=== PATIENT | female | born 1965 | race Caucasian/White ===

== ENCOUNTER 2023-10-23 20:35 | Inpatient (IN) | payer BC, SELFPAY ==
[2023-10-23] VITALS (7 sets, daily range): BP systolic 96–113; BP diastolic 74–82; BMI 25.4; BMI 24.5
[2023-10-23 19:16] LABS: % Basophils 0.2 % (0-2); % Lymphocytes 7.7 % (20.5-51.1); % Monocytes 5.5 % (1.7-9.3); % Neutrophils 83.6 % (42.2-75.2); Absolute Eosinophils 0.2 10^3/uL (0-0.7); Absolute Immature Granulocytes 0.1 10^3/uL (0-0.05); Absolute Lymphocytes 0.6 10^3/uL (1.2-3.4); Absolute Monocytes 0.4 10^3/uL (0.1-0.6); Absolute Neutrophils 6.7 10^3/uL (1.4-6.5); Hemoglobin 8.9 g/dL (12.0-16.0); Mean Corp Hgb Conc. 37.1 g/dL (33.0-37.0); Mean Corpuscular Hgb 32.7 pg (27.0-31.0); Mean Corpuscular Volume 88.2 fL (81.0-99.0); Mean Platelet Volume 9.4 fL (7.4-10.4); Nucleated Red Blood Cells % 0 %; Platelet Count 232 10^3/uL (130-400); Red Blood Cell Count 2.72 10^6/uL (4.20-5.40); Red Cell Dist. Width 12.1 % (11.5-14.5)
[2023-10-23 19:38] LABS: ALT (SGPT) 58 U/L (0-35); AST (SGOT) 24 U/L (14-36); Albumin 2.8 g/dl (3.5-5.0); Alkaline Phosphatase 355 U/L (38-126); Blood Urea Nitrogen 26 mg/dl (7-17); Calcium 8.5 mg/dl (8.4-10.2); Carbon Dioxide 22 mmol/L (22-30); Chloride 81 mmol/L (98-107); Estimated Creatinine Clearance 55 ml/min; Glucose 111 mg/dl (70-99); Potassium 2.9 mmol/L (3.5-5.1); Sodium 115 mmol/L (135-145); Total Bilirubin 0.8 mg/dl (0.2-1.3); Total Protein 5.1 g/dl (6.3-8.2); eGFR > 60.00
--- NOTE | 2023-10-23 19:46 | ED.GENMED ---
History of Present Illness
General
Chief Complaint: Weakness
Source: patient, records and previous hospital records
Exam Limitations: none
Time Seen by Provider: 10/23/23 19:07
Nursing documentation reviewed up to this point in time: agreed with
Travel History
Have you had any contact with someone who has COVID-19?: No
Do you have any symptoms of coronavirus? Fever > 100 degrees, chills, cough, shortness of breath, sore throat, loss of taste or smell, muscle aches, or headache?: No
History of Present Illness
History of Present Illness:
58-year-old female presents for evaluation of fatigue, admitted end of the year few weeks ago with a foot infection underwent incision and drainage been on IV antibiotics ID called her started Flagyl which made her ill with nausea she has been
having diarrhea lying in bed for the most part not eating or drinking much, unsure if she is gained or lost weight follows up with her family doctor and analog design engineer for wound care, has been on some Zofran for nausea 1-2 episodes of chills like hot
flashes but no documented fevers she has been getting IV antibiotics plus p.o. Flagyl, she believes that she has a foot infection due to an infected needle she gets injections of Botox in her armpits and her feet due to sweating
Past History
Past History
ED Past Medical History: Other (Fibromyalgia, IBS foot infection)
ED Past Surgical History: Gynecological, Tonsilectomy and Other (breast reduction)
Social History
Tobacco: Non-smoker
Alcohol: None
Drug: None
Personal:
Living: with family
Employment: Employed
Family History
Family History: Other
Review of Systems
Review of Systems
All Other Systems: Not applicable
Constitutional: Reports fatigue and chills; Denies fever
EENT: Reports no symptoms
Respiratory: Reports no symptoms
Cardiac: Denies chest pain or palpitations
ABD/GI: Reports nausea and diarrhea
: Reports no symptoms
Skin: Reports no symptoms
Neurological: Reports dizzy and weakness
Psychiatric: Reports no symptoms
Phy Exam
Physical Exam
Physical Exam:
Physical Exam
General: Chronically ill female
Neck: Lips are dry
Heart: Regular
Lungs: no acute respiratory distress.
Abdomen: Nontender
Neuro: alert and oriented. no focal neurological deficits
Skin: no rash
Psychiatric: Flat affect cooperative
Extremities: No edema surgical wound appears clean
Course
Orders/Labs/Results
Orders:
Orders
10/23/23 19:01
CMP [Comprehensive Metabolic Panel] Urgent
Complete Blood Count/With Diff Urgent
Cortisol, Random Urgent
Comment: ADD ON
Magnesium Urgent
Serum Osmolality Urgent
Comment: ADD ON
TSH Urgent
Comment: ADD ON
10/23/23 19:42
0.9% Sodium Chloride 1000 ml [Nss] 1,000 ml IV BOLUS
Potassium Chloride [KCl] 40 meq PO NOW STA
10/23/23 19:44
Add On- LAB Urgent
Tests Added?: Serum osmolality urine osmolality TSH cortisol
Add On- LAB Urgent
Tests Added?: magnesium
Osmolality, Random Urine Urgent
10/23/23 19:46
ECG [Electrocardiogram (*1)] Urgent
Reason for Study: Fatigue / Weakness
EKG- Treatment ONCE
10/23/23 23:00
Basic Metabolic Panel Urgent
Abnormal Lab Results
10/23/23
19:01
RBC 2.72 L 10^6/uL
(4.20-5.40)
Hgb 8.9 L g/dL
(12.0-16.0)
Hct 24.0 L %
(37.0-47.0)
MCH 32.7 H pg
(27.0-31.0)
MCHC 37.1 H g/dL
(33.0-37.0)
Abs Immat Gran (auto) 0.1 H 10^3/uL
(0-0.05)
Absolute Neuts (auto) 6.7 H 10^3/uL
(1.4-6.5)
Absolute Lymphs (auto) 0.6 L 10^3/uL
(1.2-3.4)
Immature Gran % 1.0 H %
(0-0.5)
Neutrophils % 83.6 H %
(42.2-75.2)
Lymphocytes % 7.7 L %
(20.5-51.1)
Sodium 115 L* mmol/L
(135-145)
Potassium 2.9 L mmol/L
(3.5-5.1)
Chloride 81 L mmol/L
(98-107)
BUN 26 H mg/dl
(7-17)
Glucose 111 H mg/dl
(70-99)
ALT 58 H U/L
(0-35)
Alkaline Phosphatase 355 H U/L
(38-126)
Total Protein 5.1 L g/dl
(6.3-8.2)
Albumin 2.8 L g/dl
(3.5-5.0)
10/23/23 19:01
Vital Signs
Initial and Last Documented VS:
Initial Vital Signs
Temp Pulse Resp BP Pulse Ox
97.8 F 91 18 103/74 98
10/23/23 18:56 10/23/23 18:56 10/23/23 18:56 10/23/23 18:56 10/23/23 18:56
Last Documented Vital Signs
Temp Pulse Resp BP Pulse Ox
97.8 F 91 18 103/74 98
10/23/23 18:56 10/23/23 18:56 10/23/23 18:56 10/23/23 18:56 10/23/23 18:56
MDM/Problems Addressed
Differential Diagnosis Includes:
Anemia dehydration occult infection electrolyte abnormality
MDM/Problems Addressed:
Fatigue
Chronic conditions affecting care:
Fibromyalgia
Acute Exacerbation and/or Progression of Chronic Illness:
Fibromyalgia
*Pulse Oximetry
Patient hypoxic: no
*EKG
Interpreted by ED Provider?: Yes
Interpretation: abnormal
Comparison EKG: no comparison EKG present
Heart Rate: 78
Rate: normal
Rhythm: sinus
Ischemia: non-specific ST changes
*Manager Call Center Interpretation
Rate: normal
Interpretation: normal
Heart Rate: 80
Rhythm: sinus
*Critical Care Note
Total Time (30-74mins, 75-104mins- exclusive of procedures): 30
Data Reviewed
Review of Other/Old Records Reveals: Labs, Records and Discharge Summary
Source: patient
Prescriptions/Medications Considered But Not Given:
Stress dose steroids
Further Testing Considered But Not Given:
Foot x-ray
Update Note
Update Note:
Patient with multiple vague complaints she looks dehydrated here BP is soft, she is hyponatremic significantly hypokalemic we will check magnesium start saline hydration reviewed with hospitalist and paste mixer will be admitted serial BMPs will be
obtained
ED Attending Note
-
Portions of this chart may have been created with voice recognition software.� Occasional wrong word or��sound alike� substitutions may have occurred due to the inherent limitations of voice recognition software.
Discharge Plan
Departure
Patient Disposition: Admit
Date of Disposition: 10/23/23
Time of Disposition: 19:54
Admit to: Telemetry
Presentation/result/management discussed w/ accepting MD/DO: Hospitalist
Patient with high blood pressure during this ER visit?: No
Condition: Fair
Covid-19: Not Applicable
Discharge Problem:
Hypokalemia, Fibromyalgia, Dehydration
Prescriptions:
No Action
ibuprofen 800 mg Tablet
800 mg PO Q6H PRN (Reason: pain)
ascorbic acid (vitamin C) [Vitamin C] 500 mg Tablet
500 mg PO DAILY
zolpidem [Ambien] 5 mg Tablet
5 mg PO HS PRN (Reason: insomnia)
escitalopram oxalate [Lexapro] 5 mg Tablet
5 mg PO DAILY
fexofenadine-pseudoephedrine [Elizabeth-D 24 Hour] 180-240 mg Tablet Extended Release 24 Hr
0.5 tab PO DAILY
Vitamin B12 Chew
1 tab PO DAILY
polyethylene glycol 3350 [HealthyLax] 17 gram Powder In Packet
17 g PO DAILY Qty: 30 0RF
ceftriaxone 2 gram Recon Soln
2,000 mg IV Q24H Qty: 0 0RF
Rx Instructions:
End Date 11/01/23
oxycodone 5 mg Tablet
5 mg PO Q6HPRN PRN (Reason: moderate pain) Qty: 10 0RF
Interventions
Interventions:
*Risk Screen - Suicide Last Done: 10/23/23 18:56
*General Assessment Last Done: 10/23/23 18:56
*Neglect/Abuse Screening Last Done: 10/23/23 18:56
ED- Fall Risk Assessment Last Done: 10/23/23 19:12
ED- Cardiac Assessment Last Done: 10/23/23 19:12
ED- Neurological Assessment Last Done: 10/23/23 19:12
ED- Pulmonary Assessment Last Done: 10/23/23 19:12
[2023-10-23] MEDS: NSS 1000 IV (19:50)
[2023-10-23] MEDS: KCL 40 MEQ PO (19:51)
[2023-10-23 20:04] LABS: Magnesium 2.1 mg/dl (1.6-2.3)
--- NOTE | 2023-10-23 20:07 | HPS.HSE ---
Addendum entered and electronically signed by Derick Ku MD 10/24/23 05:58:
0357 H : Na is at 119 close to goal
Addendum entered and electronically signed by Derick Ku MD 10/23/23 22:30:
Severe hyponatremia - suspect hypovolemia due to intolerence to POs� due to nausea , poor appetite and diarrhea�
Ordered NS 1000c bolus at ER but stop after receiving about 350 cc suggsted by Renal to avoid rapid correction
Then repeat Na@ 9 pm is 116 .
BP is Ok hence Renal suggests 3 % saline at 30/H.
f/U Na q4h.
Gaol Na by morning is not more than 120.
Original Note:
Family Physician
-
Family Physician:
Chief Complaint
-
evaluation of fatigue
History of Present Illness
58F HX suspected KAM in the past in setting of acute infective process seen at ER for evaluation of fatigue
She was admitted in sep for foot infection underwent incision and drainage been on IV antibiotics.
ID called in for Flagyl which made her ill with nausea she has been having diarrhea.
Recently lying in bed for the most part not eating or drinking much,
She follows up with her family doctor and materials and processes manager for wound care
She has been on some Zofran for nausea 1-2 episodes of chills like hot flashes but no documented fevers
Medical History
Past Medical History
Past Medical History: Reports Other (Fibromyalgia Anxiety / Depression Hypertension (not on medications))
Past Surgical History: Reports Other (T&A D&C Breast Reduction)
Social History
Tobacco: Former Smoker
Alcohol: None
Personal:
Family History
Family History: Not pertinent
Allergies / Home Medications
Allergies reflects when Allergies were last updated in [employer].
Home Medications with original date entered in [employer]
Allergy/Medication List:
Allergies
Allergy/AdvReac Type Severity Reaction Status Date / Time
metronidazole AdvReac Severe Severe Verified 10/23/23 18:55
nausea
Home Medications
Vitamin B12 Chew 1 tab PO DAILY Supplement 09/17/23
ascorbic acid (vitamin C) 500 mg tablet (Vitamin C) 500 mg PO DAILY Supplement 09/17/23
escitalopram oxalate 5 mg tablet (Lexapro) 5 mg PO DAILY Depression 09/17/23
fexofenadine-pseudoephedrine ER 180 mg-240 mg tablet,ext.release 24 hr (Elizabeth-D 24 Hour) 0.5 tab PO DAILY Allergies 09/17/23
ibuprofen 800 mg tablet 800 mg PO Q6H PRN pain 09/17/23
zolpidem 5 mg tablet (Ambien) 5 mg PO HS PRN insomnia 09/17/23
ceftriaxone 2 gram solution for injection 2,000 mg IV Q24H #0 ea 09/27/23
oxycodone 5 mg tablet 5 mg PO Q6HPRN PRN moderate pain #10 tabs 09/27/23
polyethylene glycol 3350 17 gram oral powder packet (HealthyLax) 17 g PO DAILY #30 ea 09/27/23
Review of Systems
-
Constitutional: Reports See HPI and Fatigue
EENT: Reports No Symptoms
Respiratory: Reports No Symptoms
Cardiac: Reports No Symptoms
Abdomen/GI: Reports No Symptoms
: Reports No Symptoms
Musculoskeletal: Reports No Symptoms
Skin: Reports No Symptoms
Neurological: Reports No Symptoms
Endocrine: Reports No Symptoms
Hematologic/Lymphatic: Reports No Symptoms
Psych: Reports No Symptoms
Physical Exam
Vital Signs
Vital Signs
Temp Pulse Resp BP Pulse Ox
97.8 F 91 18 103/74 98
10/23/23 18:56 10/23/23 18:56 10/23/23 18:56 10/23/23 18:56 10/23/23 18:56
Physical Exam
General: Other (see below )
Laboratory Results
-
10/23/23 19:01
Laboratory Results
Total Bilirubin 0.8 mg/dl (0.2-1.3) 10/23/23 19:
AST 24 U/L (14-36) 10/23/23 19:
ALT 58 U/L (0-35) H 10/23/23 19:01
Alkaline Phosphatase 355 U/L (38-126) H 10/23/23 19:01
Data Reviewed
-
Lab Data: Labs Reviewed by me
Old Records: Reviewed
Impression/Plan
-
Reviewed VS: afebrile HR 90 BP 103/74
PE
General: Chronically ill
HEENT: dry lips and dry OM
Respiratory: Clear; No Wheezes, Rales or Rhonchi
Cardiac: S1/S2 and Regular Rhythm; No Murmur
GI: Soft, Non Tender, Non Distended and Normal Bowel Sounds
Musculoskeletal: R foot edematous with increased warmth and tenderness.
Erythema extending proximally into the lower leg. Area of fluctuance, tenderness and purulent discharge at the base of the R 1st MT.)
Neuro: AO x 3
Data
Hgb 8.9
Na 115 - last Na 137 on 09/25/23 but HX Na around low 130s before
BG 111
K 2.9
Cl 81
CO22
BUN 26
nl Cr
nl eGFR
ALT 58 AKP 355
Albumin 2.8
last admission to 09/20/23 - 09/27/23
DC Dx: Right foot cellulitis and Osteomyelitis
ASSESSMENT & PLAN
Severe hyponatremia - suspect hypovolemia due to intolerence to POs due to nausea , poor appetite and dirrhea
NS 1000c bolus at ER
- To repeat Na at 9pm 4hrs and q6hrs to avoid rapid correction
- IVF depends upon rate of Na correction
- Check TFTs, urine lytes, etc.
- pending UrNa and UrOsm
- pending Cortisol and TSH
- Nephro consulted - suggested stop IVF and f/u Na at 9 pm
Severe hypokalemia s/p PO KCL 40 x1 at ER
Diarrheal illness DDX: RENETTA vs C Diff
- stop using Laxatives since DC on 09/27/23
- stool for C Diff, stool Cx
- stop PO PPI
- stop Miralax
- IVF depends upon rate of Na correction
S/P I & D Right foot cellulitis and Osteomyelitis
Has Rt UEx PICC line
- currently on IV CFTZ till end of October
- OP f/u with ID
Fibromyalgia HX
- Stable
- Held Lexapro/SSRI for now due to questionable ellent od SIADH
DVT Prophylaxis: Lovenox
Full code
IMU
[2023-10-23 20:20] LABS: Osmolality Serum 243 mOsm/kg (275-300)
[2023-10-23 20:35] LABS: Cortisol, Random 11.7 ug/dl; TSH 1.24 uIU/ml (0.47-4.68)
[2023-10-23] MEDS: ROCEPHIN 1000 MG IV (21:06)
[2023-10-23 21:39] LABS: Blood Urea Nitrogen 25 mg/dl (7-17); Calcium 8.5 mg/dl (8.4-10.2); Carbon Dioxide 22 mmol/L (22-30); Chloride 83 mmol/L (98-107); Estimated Creatinine Clearance 55 ml/min; Glucose 101 mg/dl (70-99); Potassium 3.1 mmol/L (3.5-5.1); Sodium 116 mmol/L (135-145); eGFR > 60.00
[2023-10-23] MEDS: TYLENOL 650 MG PO (22:49)
--- NOTE | 2023-10-23 23:03 | PTCARENOTE ---
Received pt from ED RN. Pt is AAOx3, LE weakness. NSR/sinus tach on the monitor. On RA O2 sat 96%, lungs clear. Uses the BP. R foot wound from previous I&D, foam applied. 3% infusing @ 30ml/hr through right PICC. CHG bath provided. Pt is laying
comfortable in bed with call ochoa in reach.
[2023-10-23] MEDS: SODIUM CHLORIDE 3% 500 IV (23:06)
[2023-10-23] MEDS: TUMS 2 TABLET PO (23:33)
[2023-10-23] MEDS: AMBIEN 5 MG PO (23:48)
[2023-10-24] VITALS (14 sets, daily range): BP systolic 84–111; BP diastolic 60–89; BMI 24.6
[2023-10-24 00:31] LABS: Blood Urea Nitrogen 25 mg/dl (7-17); Calcium 8.4 mg/dl (8.4-10.2); Carbon Dioxide 21 mmol/L (22-30); Chloride 85 mmol/L (98-107); Estimated Creatinine Clearance 62 ml/min; Glucose 128 mg/dl (70-99); Potassium 3.2 mmol/L (3.5-5.1); Sodium 117 mmol/L (135-145); eGFR > 60.00
[2023-10-24] MEDS: KCL 40 MEQ PO (00:50)
[2023-10-24] MEDS: TYLENOL 650 MG PO ×4 (03:54→21:20)
[2023-10-24 04:49] LABS: Blood Urea Nitrogen 21 mg/dl (7-17); Calcium 8.2 mg/dl (8.4-10.2); Carbon Dioxide 22 mmol/L (22-30); Chloride 91 mmol/L (98-107); Estimated Creatinine Clearance 62 ml/min; Glucose 101 mg/dl (70-99); Potassium 3.8 mmol/L (3.5-5.1); Sodium 119 mmol/L (135-145); eGFR > 60.00
[2023-10-24] MEDS: FLORASTOR 250 MG PO ×2 (08:10→20:06)
--- NOTE | 2023-10-24 08:22 | W.PN.HOSP.TC ---
Today's Communication/Plan
-
see A/P
Assessment / Plan
Assessment / Plan
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 She was admitted Sep 2023 for foot infection, underwent incision and drainage and had been on IV antibiotic Ceftriaxone.
ID called in for Flagyl which made her ill with nausea and she has been having diarrhea.
She follows with her family doctor and environmental technology professor for wound care.
A/P:
# Severe hyponatremia - suspect multifactorial due to hypovolemia from poor PO intake and diarrhea, and SIADH component
s/p NSS 1L bolus in ER
cont 3% NSS per renal
Follow Sodium level Q4H for close monitoring
TSH 1.24, random cortisol level 11.7
Renal on board
# Severe hypokalemia
resolved after repletion
# Diarrheal illness, ddx include ABx related vs C Diff
She had been off Laxatives since 09/27/23
Check stool for C Diff, norovirus, stool Cx
stop PO PPI
stop Miralax
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
Was recommended by ID to cont IV antibiotic Ceftriaxone through�11/01/23.
# Fibromyalgia HX, Stable
Hold Lexapro/SSRI�due to current severe hyponatremia
Add lidocaine patch for shoulder pain
DVT Prophylaxis:� Lovenox
Full code
DW RN
severe hyponatremia is life threatening
Anticipated Discharge: > 48 hours
Subjective/Interval History
-
Date of Service: October 24, 2023
Objective Data
-
Labs:
Laboratory Results
10/23/23 10/23/23 10/24/23
21:06 23:51 03:57
Sodium 116 L* 117 L* 119 L*
Potassium 3.1 L 3.2 L 3.8
Chloride 83 L 85 L 91 L
Carbon Dioxide 22 21 L 22
BUN 25 H 25 H 21 H
Creatinine 0.9 0.8 0.8
Glucose 101 H 128 H 101 H
Calcium 8.5 8.4 8.2 L
10/24/23 10/24/23 10/24/23
04:00 08:14 12:00
Sodium Cancelled Pending Pending
Potassium Cancelled Pending Pending
Chloride Cancelled Pending Pending
Carbon Dioxide Cancelled Pending Pending
BUN Cancelled Pending Pending
Creatinine Cancelled Pending Pending
Glucose Cancelled Pending Pending
Calcium Cancelled Pending Pending
Vital Signs:
Vital Signs
Temp Pulse Resp BP Pulse Ox
36.6 C 107 26 91/62 88
10/24/23 03:52 10/24/23 06:00 10/24/23 06:00 10/24/23 06:00 10/24/23 06:00
I&O
10/23/23 10/24/23 10/25/23
06:59 06:59 06:59
Intake Total 620 / 620
Balance 620 / 620
Review of Systems
-
Constitutional: Reports Fatigue
Physical Exam
-
General: Well Developed, Well Nourished, No Apparent Distress and Comfortable
Respiratory: Clear to Auscultation and Non Labored Respirations; Negative Wheezes or Accessory Resp Muscle Use
Cardiac: Regular Rhythm and S1/S2
GI: Soft and Nontender
Musculoskeletal: No Edema
Skin: Warm, Dry and Other (R food with dressing); Negative Rash
Psych: Calm and Intact Judgement/Insight
Data Reviewed
-
Labs: Labs Reviewed by me
[2023-10-24 08:42] LABS: Blood Urea Nitrogen 20 mg/dl (7-17); Calcium 8.7 mg/dl (8.4-10.2); Carbon Dioxide 23 mmol/L (22-30); Chloride 93 mmol/L (98-107); Estimated Creatinine Clearance 62 ml/min; Glucose 115 mg/dl (70-99); Potassium 3.7 mmol/L (3.5-5.1); Sodium 122 mmol/L (135-145); eGFR > 60.00
[2023-10-24 10:33] LABS: COVID-19 Antigen Negative (Negative)
[2023-10-24 10:35] LABS: Osmolality Urine 132 mOsm/kg (300-900)
[2023-10-24] MEDS: LIDOCAINE 4% PATCH 1 PATCH TOPICAL (10:38)
[2023-10-24 10:50] LABS: Urine Sodium < 5 mmol/L (30-90)
--- NOTE | 2023-10-24 10:58 | CON.MD ---
Consultation - Medical
-
IMp:
Severe hyponatremia
Severe hypokalemia
hypotension
Diarrheal illness,
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
Fibromyalgia HX
HTN not on meds
GERD
Anxiety
Plan:
Recent h/o OM of right foot s/p I&D on abx IV
A/w diarrhea, found to have severe hypontaremia
likely hypovolemic, initial U osmo not done this am is low at 132 and u na low
on 3% saline with appropriate correction so far
can stop 3% saline and use hypotonic fluids if needed for rapid correction
with low U osmo concern of rapid correction
TSH and cortisol were ok
goal of correction 6-8meq/day, frequent sodium checks
k repleted, FR 40 ounces/day
agree with holding SSRI
abx per primary
CXR shows pulm congestion, check BNP
clinically she has no hypervolemia
monitor BPs, will add prn midodrine
[id number]
[2023-10-24 12:40] LABS: Blood Urea Nitrogen 18 mg/dl (7-17); Calcium 8.4 mg/dl (8.4-10.2); Carbon Dioxide 23 mmol/L (22-30); Chloride 97 mmol/L (98-107); Estimated Creatinine Clearance 62 ml/min; Glucose 102 mg/dl (70-99); Sodium 123 mmol/L (135-145); eGFR > 60.00
[2023-10-24 12:49] LABS: NT-proBNP 21600 pg/ml
[2023-10-24] MEDS: ROCEPHIN 2000 MG IV (16:06)
[2023-10-24] MEDS: STERILE WATER FOR INJECTION 20 ML IV (16:06)
--- NOTE | 2023-10-24 16:28 | CM ---
Patient with Hx Right foot cellulitis and sesamoid osteomyelitis s/p I/D of abscess on home IV ceftriaxone, with Dx hyponatremia, diarrhea, SIADH.
Met with patient with aunt & uncle visiting in room.
The patient resides alone in a 2 story house.
The patient was Independent for ADLs/ambulation and working.
In the past week she has been fatigued and unable to do much at home.
She states that she was instructed by her waiter/waitress buffet to wear an ortho shoe and be non wt bearing on right foot until her sutures were removed, which recently occurred.
Patient states she is currently on service with [facility] for IV Abx ordered until the end of Oct. Nurse from [facility] sees her weekly for PICC line and lab draws.
Patient did not have VN for right foot wound care. She was seeing the waiter/waitress buffet once/week.
DME - RW, knee scooter, elevated toilet seat
No prior VN
PCP - Josselyn Bailey
Pharmacy - [facility]
Phone call to [facility]; left message notifying her that patient who is on service with them is here.
Message to Dr Smith; patient says she is having trouble walking. May be helpful to have PT Eval.
Plan follow patient's mobility and any wound care needs.
Plan notify [facility] if patient goes home with continuation of IV Abx.
[2023-10-24 16:37] LABS: Blood Urea Nitrogen 18 mg/dl (7-17); Calcium 8.4 mg/dl (8.4-10.2); Carbon Dioxide 23 mmol/L (22-30); Chloride 97 mmol/L (98-107); Estimated Creatinine Clearance 62 ml/min; Glucose 135 mg/dl (70-99); Potassium 3.8 mmol/L (3.5-5.1); Sodium 124 mmol/L (135-145); eGFR > 60.00
--- NOTE | 2023-10-24 16:52 | W.PN.UPDATE ---
Update Note
Progress Note Update
BNP is significantly elevated , ordered echo
may benefit from cards eval
Avoid IVF at this time
prn lasix
d/w primary
[2023-10-24] MEDS: LOVENOX 40 MG SC (17:32)
--- NOTE | 2023-10-24 18:26 | PTCARENOTE ---
Patient c/o of neck and back pain today. Medicated with Tylenol and Lidocaine patches throughout the day, see NOV. BP soft but remained SBP>90. Right foot dressing redressed. Pt did get up and walk to bathroom once today using RW. Assessment, care
and VS as charted.
[2023-10-24] MEDS: TUMS 2 TABLET PO (20:06)
[2023-10-24] MEDS: ULTRAM 25 MG PO (20:06)
[2023-10-24 20:25] LABS: Blood Urea Nitrogen 20 mg/dl (7-17); Calcium 8.9 mg/dl (8.4-10.2); Carbon Dioxide 20 mmol/L (22-30); Chloride 94 mmol/L (98-107); Estimated Creatinine Clearance 62 ml/min; Glucose 112 mg/dl (70-99); Sodium 125 mmol/L (135-145); eGFR > 60.00
--- NOTE | 2023-10-24 22:48 | PTCARENOTE ---
Pt placed on 2L NC, pulse ox dropped to 87%, pt states she feels SOB. O2 sat 95% with 2L.
[2023-10-24] MEDS: AMBIEN 5 MG PO (23:44)
[2023-10-25] VITALS (13 sets, daily range): BP systolic 91–110; BP diastolic 65–83; PULSE 112–114; O2SAT 97–98; BMI 24.5
[2023-10-25 00:40] LABS: Blood Urea Nitrogen 17 mg/dl (7-17); Calcium 8.5 mg/dl (8.4-10.2); Carbon Dioxide 22 mmol/L (22-30); Chloride 95 mmol/L (98-107); Estimated Creatinine Clearance 62 ml/min; Glucose 122 mg/dl (70-99); Potassium 3.7 mmol/L (3.5-5.1); Sodium 120 mmol/L (135-145); eGFR > 60.00
[2023-10-25] MEDS: TYLENOL 650 MG PO ×2 (01:34→09:14)
[2023-10-25 04:00] LABS: Hematocrit 21.8 % (37.0-47.0); Hemoglobin 7.8 g/dL (12.0-16.0); Mean Corp Hgb Conc. 35.8 g/dL (33.0-37.0); Mean Corpuscular Hgb 32.1 pg (27.0-31.0); Mean Corpuscular Volume 89.7 fL (81.0-99.0); Platelet Count 241 10^3/uL (130-400); Red Blood Cell Count 2.43 10^6/uL (4.20-5.40); Red Cell Dist. Width 12.6 % (11.5-14.5); White Blood Cell Count 8.9 10^3/uL (4.8-10.8)
[2023-10-25 04:31] LABS: Blood Urea Nitrogen 16 mg/dl (7-17); Calcium 8.4 mg/dl (8.4-10.2); Carbon Dioxide 23 mmol/L (22-30); Chloride 97 mmol/L (98-107); Estimated Creatinine Clearance 62 ml/min; Glucose 105 mg/dl (70-99); Potassium 3.7 mmol/L (3.5-5.1); Sodium 123 mmol/L (135-145); eGFR > 60.00
--- NOTE | 2023-10-25 08:31 | W.PN.HOSP.TC ---
Today's Communication/Plan
-
see A/P
Assessment / Plan
Assessment / Plan
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 She was admitted Sep 2023 for foot infection, underwent incision and drainage and had been on IV antibiotic Ceftriaxone.
ID called in for Flagyl which made her ill with nausea and she has been having diarrhea.
She follows with her family doctor and transmission supervisor for wound care.
A/P:
# Severe hyponatremia - suspect multifactorial due to hypovolemia from poor PO intake and diarrhea, and SIADH component
s/p NSS 1L bolus in ER
s/p 3% NSS per renal
sodium level improved from 115 on admission to 123
Cont to follow Sodium level closely
TSH 1.24, random cortisol level 11.7
Renal on board
# Severe hypokalemia
resolved after repletion
# Diarrheal illness, likely ABx related
She had been off Laxatives since 09/27/23
C Diff and norovirus negative, follow the rest of stool Cx
stop PO PPI, stop Miralax
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
Was recommended by ID to cont IV antibiotic Ceftriaxone through�11/01/23.
PT OT Eval
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
start gabapentin 100 mg HS
# Elevated BNP , possible acute CHF
# Acute hypoxic respiratory insufficiency
Placed on 2.5 L NC, pt NOT on home O2
CXR with Mild acute interstitial and alveolar cardiogenic pulmonary edema. Minimal bilateral pleural effusions.
Follow echo
IV Lasix 20 x1
Card CS
# Cough, intermittent
COVID neg
Check Flu and RSV
Tessalon PRN for cough
# Fibromyalgia HX, Stable
Hold Lexapro/SSRI�due to current severe hyponatremia
Added lidocaine patch for shoulder and lower back
# Insomnia
Cont ALGORITHM DEVELOPER Ambien PRN
DVT Prophylaxis:�Lovenox SQ
Full code
DW RN
Anticipated Discharge: > 48 hours
Subjective/Interval History
-
Date of Service: October 25, 2023
Objective Data
-
Labs:
Laboratory Results
10/24/23 10/24/23 10/25/23
19:57 21:50 00:04
WBC
Hgb
Hct
Plt Count
Sodium Cancelled 120 L
Potassium 4.0 3.7
Chloride 95 L
Carbon Dioxide 22
BUN 17
Creatinine 0.8
Glucose 122 H
Calcium 8.5
10/25/23
03:45
WBC 8.9
Hgb 7.8 L
Hct 21.8 L
Plt Count 241
Sodium 123 L
Potassium 3.7
Chloride 97 L
Carbon Dioxide 23
BUN 16
Creatinine 0.8
Glucose 105 H
Calcium 8.4
Vital Signs:
Vital Signs
Temp Pulse Resp BP Pulse Ox
36.7 C 108 36 96/65 95
10/25/23 05:04 10/25/23 06:02 10/25/23 06:02 10/25/23 06:02 10/25/23 04:04
I&O
10/24/23 10/25/23 10/26/23
06:59 06:59 06:59
Intake Total 620 / 620 1830 / 1830
Output Total 150 / 150
Balance 620 / 620 1680 / 1680
Review of Systems
-
Constitutional: Reports Fatigue
Respiratory: Reports Cough
Physical Exam
-
General: Well Developed, Well Nourished and Comfortable
HEENT: Oxygen (2.5L NC)
Respiratory: Clear to Auscultation and Non Labored Respirations; Negative Wheezes or Accessory Resp Muscle Use
Cardiac: Regular Rhythm and S1/S2
GI: Soft and Nontender
Musculoskeletal: No Edema
Skin: Warm, Dry and Other (R foot with dressing); Negative Rash
Neuro: Awake
Psych: Calm and Intact Judgement/Insight
Data Reviewed
-
Diagnostic Radiology: Image personally visualized and interpreted and Report Reviewed by me
Labs: Labs Reviewed by me
[2023-10-25] MEDS: TESSALON PERLES 200 MG PO ×2 (09:13→23:58)
[2023-10-25] MEDS: ProAmatine 5 MG PO (09:14)
[2023-10-25] MEDS: FLORASTOR 250 MG PO ×2 (09:14→20:17)
[2023-10-25] MEDS: LIDOCAINE 4% PATCH TOPICAL ×2 (09:14→09:15)
--- NOTE | 2023-10-25 09:46 | PTCARENOTE ---
Patient ordered for Lasix IV x1 this morning. Spoke with and advised low BP, systolic in 90s. She stated to give PRN Midodrine (despite parameters), wait for response then give Lasix. Also made aware hgb was 7.8 this morning and pt has been
tachycardic, advised to monitor for now, no new orders. Pt c/o of burning/numbness to her toe/foot post surgery. Order for Gabapentin to start tonight. Assessment, care and VS as charted.
--- NOTE | 2023-10-25 10:30 | CON.CAR ---
Addendum entered and electronically signed by Yung Tate MD 10/25/23 16:10:
I saw and examined the patient.
The INSPECTOR [employer] or PA's note was reviewed and I agree with the note.
Comment: General: Well developed, well nourished in NAD.
Neck: Supple, no JVD, HJR, carotids +2 B/L, no bruits bilaterally.
Heart: Non displaced PMI, RRR, no murmurs, No S3, S4, no rubs.
Lungs: Clear to auscultation bilaterally, no wheeze, rhonchi, rubs bilaterally,
normal expiratory phase.
Abdomen: Normal bowel sounds, soft, non-tender, non-distended.
Extremities: No clubbing, cyanosis or edema bilaterally.
Neuro: Grossly nonfocal, awake, alert and oriented x3.
Ave has a history of hyperhidrosis. She was admitted with hyponatremia and fatigue. Cardiology was consulted for new findings echocardiogram with ejection fraction of 35 to 40% with moderate to severe MR
Etiology of cardiomyopathy is unclear but with left bundle branch block need to exclude CAD. Discussed cardiac catheterization with patient who seems agreeable. Hemoglobin is dropped to 7.8 and an anemia will need to be worked up before
catheterization. Start baby aspirin when anemia stable
Original Note:
Consultation
Consultation Request
Date/Time Consultation Requested: 10/25/23 at 0838
Date/Time Consultation Performed: 10/25/23 at 1100
Requesting Provider: Dr. Smith
Performing Provider: Dr. Tate
Reason for Consultation: Possible acute HF, new CM
Medical History
-
History of Present Illness:
Patient came to [facility] on Monday with fatigue and was admitted with hyponatremia, cardiology is now consulted for an abnormal echo. Patient was admitted to 09/20/23 until 09/27/23 with right foot osteomyelitis thought to be a complication of Botox
injections she receives for hyperhidrosis. Patient had an I&D and was treated with antibiotics and then discharged to home on antibiotics. Patient returned to [facility] 10/23/23 with fatigue and was found to be hyponatremic at 115 initially. Patient was
seen by nephrology and received hypertonic saline. Sodium only improved to 123 and [place] [address] concerning for HF. Patient then had an echo ordered as outlined above. No h/o CM or CHF. No h/o chest pain. Patient
was unaware of LBBB and by her last ECG in 2020 she had NSR without BBB. No FH of CM or SCD. Patient reports no improvement in her cough and SOB since admission despite improvement in serum sodium levels.
PMH:
Recent admission for right foot osteomyelitis 09/20/23 until 09/27/23
FMR
Past Medical History
Past Medical History: Other (in HPI)
Past Surgical History: Gynecological (breast reduction, D&C), Orthopedic (right foot surgery for osteo) and Tonsilectomy
Social History
Tobacco: Non-Smoker
Alcohol: None
Drug: None
Living: Alone
Family History
Family History: Other (No FH CM or SCD)
Allergies / Home Medications
Allergy/AdvReac Type Severity Reaction Status Date / Time
metronidazole Allergy Severe Verified 10/23/23 20:52
nausea
Medication Instructions Recorded Confirmed Type
Vitamin B12 Chew 1 tab PO DAILY Supplement 09/17/23 10/23/23 History
ascorbic acid (vitamin C) 500 mg 500 mg PO DAILY Supplement 09/17/23 10/23/23 History
tablet (Vitamin C)
escitalopram oxalate 5 mg tablet 5 mg PO DAILY Depression 09/17/23 10/23/23 History
(Lexapro)
fexofenadine-pseudoephedrine ER 0.5 tab PO DAILY Allergies 09/17/23 10/23/23 History
180 mg-240 mg tablet,ext.release
24 hr (Elizabeth-D 24 Hour)
ibuprofen 800 mg tablet 800 mg PO Q6H PRN pain 09/17/23 10/23/23 History
zolpidem 5 mg tablet (Ambien) 5 mg PO HS PRN insomnia 09/17/23 10/23/23 History
ceftriaxone 2 gram solution for 2,000 mg IV DAILY@1600 Infection 10/23/23 10/23/23 History
injection
omeprazole 20 mg capsule,delayed 20 mg PO DAILY GERD 10/23/23 10/23/23 History
release
ondansetron HCl 4 mg tablet 4 mg PO Q6H PRN nausea/vomiting 10/23/23 10/23/23 History
Review of Systems
-
History Source: Patient and Family (talked to patient's friend, Jacy, for 17 min as well)
All other systems: Negative unless noted
Physical Exam
Vital Signs
Temp Pulse Resp BP Pulse Ox
98.3 F 109 20 104/74 99
10/25/23 07:46 10/25/23 10:00 10/25/23 10:00 10/25/23 10:00 10/25/23 10:00
GEN: NAD. AAOx3
HEENT: EOMI, MMM
LUNGS: Wearing oxygen at 2 L NC. CTA B/L without wheeze
CV: Reg, S1/S2, 2/6 syst LSB
ABD: soft, BS+, NT, ND
EXT: No clubbing, cyanosis, lesions or edema B/L
NEURO: Gross non-focal
SKIN: Warm, dry and pink. No rash
Lab Results
10/25/23 03:45
Wdm-V-Cxhqpgcwhaz Pept 01728 pg/ml 10/24/23 12:13
Impression / Plan
-
PC: Dr. Bailey
Cardiology: None prior to admission
Impression:
Admitted with diarrhea and severe hyponatremia 10/23/23
Hyponatremia
Diarrhea
LBBB
Anemia
Acute HFrEF
Newly diagnosed CM EF 35-40% by echo 10/24/23
Mod to sev MR by echo 10/24/23
Recent admission for right foot osteomyelitis 09/20/23 until 09/27/23
FMR
Echo 10/24/23: EF 35-40%, global hypokinesis, mod to sev MR
Plan:
-Patient came to [facility] on Monday with fatigue and was admitted with hyponatremia, cardiology is now consulted for an abnormal echo. Patient was admitted to 09/20/23 until 09/27/23 with right foot osteomyelitis thought to be a complication of Botox
injections she receives for hyperhidrosis. Patient had an I&D and was treated with antibiotics and then discharged to home on antibiotics. Patient returned to [facility] 10/23/23 with fatigue and was found to be hyponatremic at 115 initially. Patient was
seen by nephrology and received hypertonic saline. Sodium only improved to 123 and [place] [address] [place] for HF. Patient then had an echo ordered as outlined above. No h/o CM or CHF. No h/o chest pain. Patient
was unaware of LBBB and by her last ECG in 2020 she had NSR without BBB. No FH of CM or SCD. Patient reports no improvement in her cough and SOB since admission despite improvement in serum sodium levels.
-Talked with patient in room for 16 minutes about echo, possible etiologies and recommendation for cath. Asked patient to call her daughter so that she could be present on speakerphone, but patient's daughter lives in [place] and so instead she
asked that I call her friend, Kamilahzita Gusman, which I did. Talked with patient's friend for 17 min and reviewed what I had talked with patient about. Reiterated recommendation for cardiac cath and friend seems to support this recommendation as
well. Overall patient seems agreeable to cardiac cath this admission.
-Hgb was 8.9 on admission and is down to 7.8 today. No reports of melena. Ordering heme test of stools and repeat H&H in AM. Will need to be sure that H&H is stable prior to cath in case patient receives PCI and needs DAPT.
-New LBBB on ECG this admission compared to last ECG in 2020. Reviewed possible causes of LBBB. Also reviewed possible eventual BANK GUARD.
-New CM EF 35% on echo. Patient's BP is 104/74 and HR 111. Will try adding Coreg 3.125 mg BID as a first step. Pending BP can try adding lisinopril.
-Pending outcome of cath, if patient has PCI then recheck echo in 40 days if nonobstructive CAD then recheck echo in 90 days.
-Patient with cough and hypoxia. Some increase in urination after Lasix 20 mg IV x1 this AM, but no symptomatic improvement in cough or SOB. Will try another dose of Lasix 40 mg IV this afternoon and then Lasix 40 mg daily. Patient was not taking
Lasix prior to admission.
-Reviewed moderate to severe MR on echo. Continue with attempts at diuresis and reassess MR when euvolemic.
[2023-10-25] MEDS: NSS 1000 IV (11:09)
[2023-10-25] MEDS: LASIX 20 MG IV (11:09)
--- NOTE | 2023-10-25 12:48 | W.PN.NEPH.PH ---
Today's Communication / Plan
-
- hyponatremia improved
- plan for hypertonic saline once Na numbers back from 1PM draw
Assessment/Plan
-
Assessment:
Severe hyponatremia (roxanne 115)
Severe hypokalemia
hypotension
Diarrheal illness
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
Fibromyalgia HX
HTN not on meds
GERD
Anxiety
Plan:
Recent h/o OM of right foot s/p I&D on abx IV (CTX until 11/01)
arrived with diarrhea, found to have severe hyponatremia with urine studies consistent with hypovolemic hyponatremia.
TSH and cortisol were ok
goal of correction 6-8meq/day, frequent sodium checks
k repleted, FR 40 ounces/day
agree with holding SSRI
echo with 35% EF, BNP 21K, on 2L O2 so concern for new diagnosis of heart failure. given lasix IV 20 today.
will trial hypertonic again but VERY gentle for a short period of time. goal Na 129-131 by tomorrow AM. Na and Uosm check at 1PM, will decide on rate afterwards
midodrine on board PRN
-
-
Date of Service: October 25, 2023
CC / HPI / ROS
-
Chief Complaint:
hyponatremia
History of Present Illness:
hyponatremia
OM
diarrheal illness
new diagnosis of CHF
fibromyalgia
Review of Systems:
denies swelling
on 2L NC (new)
Labs
-
Labs:
WBC 8.9 10^3/uL (4.8-10.8) 10/25/23 03:45
RBC 2.43 10^6/uL (4.20-5.40) L 10/25/23 03:45
Hgb 7.8 g/dL (12.0-16.0) L 10/25/23 03:45
Hct 21.8 % (37.0-47.0) L 10/25/23 03:45
Plt Count 241 10^3/uL (130-400) 10/25/23 03:45
eGFR > 60.00 10/25/23 03:45
Dam-H-Udshqbnxtse Pept 75632 pg/ml 10/24/23 12:13
Albumin 2.8 g/dl (3.5-5.0) L 10/23/23 19:01
Physical Exam
-
Vital Signs:
Vital Signs
Temp Pulse Resp BP Pulse Ox
97.5 F 111 20 104/74 99
10/25/23 11:32 10/25/23 11:09 10/25/23 10:00 10/25/23 11:09 10/25/23 10:00
Cardiovascular:: Regular rate and rhythm
Respiratory:: Bilateral: CTA
Lung Excursion:: Normal
Abdomen:: Nontender and Soft
Bowel Sounds:: Normal
Extremity Edema:: None: Bilateral:
Marquez Catheter: No
[2023-10-25 13:48] LABS: Blood Urea Nitrogen 15 mg/dl (7-17); Calcium 8.4 mg/dl (8.4-10.2); Carbon Dioxide 23 mmol/L (22-30); Chloride 94 mmol/L (98-107); Estimated Creatinine Clearance 55 ml/min; Glucose 144 mg/dl (70-99); Potassium 3.7 mmol/L (3.5-5.1); Sodium 121 mmol/L (135-145); eGFR > 60.00
[2023-10-25 14:52] LABS: Osmolality Urine 262 mOsm/kg (300-900)
--- NOTE | 2023-10-25 16:56 | CM ---
Patient with Hx Right foot cellulitis and sesamoid osteomyelitis s/p I/D of abscess on home IV ceftriaxone, with Dx hyponatremia, diarrhea, SIADH. Right foot dressing per nurse. IV Abx. PT & OT recommend HH.
Met with patient and offered VN; she called one of her friends who owns a HH agency and is considering a few options however wants to discuss with some other friends who were in healthcare. Patient requests to have a STATION AGENT as well as SN/PT/OT.
Plan follow up with patient about VN preference and make referral.
[2023-10-25] MEDS: ULTRAM 25 MG PO (17:11)
[2023-10-25] MEDS: STERILE WATER FOR INJECTION 20 ML IV (17:13)
[2023-10-25] MEDS: LASIX 40 MG IV (17:13)
[2023-10-25] MEDS: LIDOCAINE 4% PATCH 1 PATCH TOPICAL ×2 (17:13)
[2023-10-25] MEDS: ROCEPHIN 2000 MG IV (17:13)
[2023-10-25] MEDS: LOVENOX 40 MG SC (17:14)
[2023-10-25] MEDS: SODIUM CHLORIDE 3% 250 IV (18:32)
[2023-10-25] MEDS: COREG 3.125 MG PO (20:18)
[2023-10-25] MEDS: NEURONTIN 100 MG PO (20:57)
[2023-10-25] MEDS: AMBIEN 5 MG PO (20:57)
[2023-10-26] VITALS (16 sets, daily range): BP systolic 81–111; BP diastolic 51–72; PULSE 95; O2SAT 97; BMI 24.3
[2023-10-26 00:35] LABS: Blood Urea Nitrogen 18 mg/dl (7-17); Calcium 8.3 mg/dl (8.4-10.2); Carbon Dioxide 23 mmol/L (22-30); Chloride 95 mmol/L (98-107); Estimated Creatinine Clearance 62 ml/min; Glucose 108 mg/dl (70-99); Potassium 3.8 mmol/L (3.5-5.1); Sodium 121 mmol/L (135-145); eGFR > 60.00
--- NOTE | 2023-10-26 04:42 | PTCARENOTE ---
assumed care of patient- pt able to make needs known. 3% NaCl infusing at 30ml/hr per protocol- BMP drawn at 0000 per order- Na still 121- 3% increased to 35ml/hr per protocol. pt anxious- 2L NC on per patient request. pt with occasional dry cough-
PRN tessalon pearles given- pt was also given ice chips with frequent complaints of cough. pt able to sleep on and off without issues. care ongoing.
[2023-10-26 05:30] LABS: Hematocrit 22.4 % (37.0-47.0); Mean Corp Hgb Conc. 35.7 g/dL (33.0-37.0); Mean Corpuscular Hgb 32.7 pg (27.0-31.0); Mean Corpuscular Volume 91.4 fL (81.0-99.0); Mean Platelet Volume 9.2 fL (7.4-10.4); Platelet Count 267 10^3/uL (130-400); Red Blood Cell Count 2.45 10^6/uL (4.20-5.40); Red Cell Dist. Width 12.9 % (11.5-14.5)
[2023-10-26 06:08] LABS: Blood Urea Nitrogen 19 mg/dl (7-17); Calcium 8.4 mg/dl (8.4-10.2); Carbon Dioxide 22 mmol/L (22-30); Chloride 96 mmol/L (98-107); Estimated Creatinine Clearance 55 ml/min; Glucose 106 mg/dl (70-99); Magnesium 1.8 mg/dl (1.6-2.3); Potassium 3.8 mmol/L (3.5-5.1); Sodium 123 mmol/L (135-145); eGFR > 60.00
--- NOTE | 2023-10-26 08:22 | W.PN.HOSP.TC ---
Today's Communication/Plan
-
see A/P
Assessment / Plan
Assessment / Plan
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 She was admitted Sep 2023 for foot infection, underwent incision and drainage and had been on IV antibiotic Ceftriaxone.
ID called in for Flagyl which made her ill with nausea and she has been having diarrhea.
She follows with her family doctor and resume writer for wound care.
A/P:
# Severe hyponatremia - suspect multifactorial due to hypovolemia from poor PO intake and diarrhea, and SIADH component
s/p NSS 1L bolus in ER
3% NSS per renal
sodium level improved from 115 on admission to 123
Cont to follow Sodium level closely
TSH 1.24, random cortisol level 11.7
Renal on board
# Severe hypokalemia
resolved after repletion
# New acute systolic CHF
# Acute hypoxic respiratory insufficiency
Placed on 2L NC, wean as tolerated, pt NOT on home O2
CXR with Mild acute interstitial and alveolar cardiogenic pulmonary edema. Minimal bilateral pleural effusions.
BNP 80663
Echo: EF 35-40%, Global hypokinesis. Moderate to severe mitral regurgitation.�
IV Lasix 40 x1
Card on board, planning cardiac cath
# Diarrheal illness, likely ABx related
She had been off Laxatives since 09/27/23
C Diff and norovirus negative, follow the rest of stool Cx
stopped PO PPI, stopped Miralax
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
Was recommended by ID to cont IV antibiotic Ceftriaxone through�11/01/23.
PT OT Eval
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
started gabapentin 100 mg HS
# Cough, intermittent; likely related to acute CHF
COVID/ Flu/RSV negative
Tessalon PRN for cough
# Fibromyalgia HX, Stable
Hold Lexapro/SSRI�due to current severe hyponatremia
Added lidocaine patch for shoulder and lower back
# Insomnia
Cont MODEL MAKER Ambien PRN
DVT Prophylaxis:�Lovenox SQ
Full code
DW RN
DW Card team
Anticipated Discharge: > 48 hours
Subjective/Interval History
-
Date of Service: October 26, 2023
Objective Data
-
Labs:
Laboratory Results
10/26/23 10/26/23
00:10 05:18
WBC 10.0
Hgb 8.0 L
Hct 22.4 L
Plt Count 267
Sodium 121 L 123 L
Potassium 3.8 3.8
Chloride 95 L 96 L
Carbon Dioxide 23 22
BUN 18 H 19 H
Creatinine 0.8 0.9
Glucose 108 H 106 H
Calcium 8.3 L 8.4
Vital Signs:
Vital Signs
Temp Pulse Resp BP Pulse Ox
36.9 C 105 30 85/54 96
10/26/23 07:17 10/26/23 06:02 10/26/23 06:02 10/26/23 06:02 10/26/23 06:02
I&O
10/25/23 10/26/23 10/27/23
06:59 06:59 06:59
Intake Total 1830 / 1830 680 / 680
Output Total 150 / 150 200 / 200
Balance 1680 / 1680 480 / 480
Review of Systems
-
Constitutional: Reports Fatigue
Respiratory: Reports Cough (intermittent)
Physical Exam
-
General: Well Developed, Well Nourished and Comfortable
HEENT: Oxygen (2L NC)
Respiratory: Clear to Auscultation and Non Labored Respirations; Negative Wheezes or Accessory Resp Muscle Use
Cardiac: Regular Rhythm and S1/S2
GI: Soft and Nontender
Musculoskeletal: No Edema
Skin: Warm, Dry and Other (R foot with dressing); Negative Rash
Neuro: Awake
Psych: Calm and Intact Judgement/Insight
Data Reviewed
-
Diagnostic Radiology: Image personally visualized and interpreted and Report Reviewed by me
Labs: Labs Reviewed by me
[2023-10-26] MEDS: TESSALON PERLES 200 MG PO ×2 (09:31→22:47)
[2023-10-26] MEDS: TYLENOL 650 MG PO ×3 (09:32→22:39)
[2023-10-26] MEDS: COREG PO (09:33)
[2023-10-26] MEDS: FLORASTOR 250 MG PO ×2 (09:33→20:28)
[2023-10-26] MEDS: LIDOCAINE 4% PATCH 1 PATCH TOPICAL ×2 (09:34)
[2023-10-26 11:20] LABS: Osmolality Urine 316 mOsm/kg (300-900)
[2023-10-26 11:40] LABS: Urine Sodium 12 mmol/L (30-90)
--- NOTE | 2023-10-26 15:09 | CM ---
Patient with Hx Right foot cellulitis and sesamoid osteomyelitis s/p I/D of abscess on home IV ceftriaxone, with Dx hyponatremia, CHF, Diarrheal illness, right foot neuropathic pain. O2 2L. Right foot dressing per nurse. Receiving IV ceftriaxone.
PT & OT recommend HH.
As per prior CM notes: Patient states she is currently on service with [facility] home infusion for IV Abx ordered until the end of Oct. Nurse from [facility] sees her weekly for PICC line and lab draws.
Met with patient who has decided she would like [facility] for nurse/PT/OT.
Referral to [facility] Liaison.
Plan home with [facility].
--- NOTE | 2023-10-26 16:31 | W.PN.NEPH.PH ---
Today's Communication / Plan
-
- restart hypertonics
- lasix 20mg with hypertonics
- Uosm at 8PM and with AM labs
Assessment/Plan
-
Assessment:
Severe hyponatremia (roxanne 115)
Severe hypokalemia
hypotension
Diarrheal illness
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
Fibromyalgia HX
HTN not on meds
GERD
Anxiety
Plan:
Recent h/o OM of right foot s/p I&D on abx IV (CTX until 11/01)
arrived with diarrhea, found to have severe hyponatremia with urine studies consistent with hypovolemic hyponatremia.
TSH and cortisol were ok
goal of correction 6-8meq/day, frequent sodium checks. Na at 123 today
k repleted, FR 40 ounces/day
agree with holding SSRI
echo with 35% EF, BNP 21K, on 2L O2 so concern for new diagnosis of heart failure. was given lasix IV 20 and 40 yesterday. will give another lasix 20 IV today
will trial hypertonic again. goal Na 129-131 by tomorrow AM. Na and Uosm check at 8PM, will decide on rate afterwards
midodrine on board PRN
-
-
Date of Service: October 26, 2023
CC / HPI / ROS
-
Chief Complaint:
hyponatremia
History of Present Illness:
hyponatremia
OM
diarrheal illness
new diagnosis of CHF
fibromyalgia
Review of Systems:
denies swelling
on 2L NC (new)
Labs
-
Labs:
WBC 10.0 10^3/uL (4.8-10.8) 10/26/23 05:18
RBC 2.45 10^6/uL (4.20-5.40) L 10/26/23 05:18
Hgb 8.0 g/dL (12.0-16.0) L 10/26/23 05:18
Hct 22.4 % (37.0-47.0) L 10/26/23 05:18
Plt Count 267 10^3/uL (130-400) 10/26/23 05:18
Sodium 123 mmol/L (135-145) L 10/26/23 05:18
Potassium 3.8 mmol/L (3.5-5.1) 10/26/23 05:18
Chloride 96 mmol/L (98-107) L 10/26/23 05:18
Carbon Dioxide 22 mmol/L (22-30) 10/26/23 05:18
BUN 19 mg/dl (7-17) H 10/26/23 05:18
Creatinine 0.9 mg/dL (0.6-1.0) 10/26/23 05:18
eGFR > 60.00 10/26/23 05:18
Glucose 106 mg/dl (70-99) H 10/26/23 05:18
Calcium 8.4 mg/dl (8.4-10.2) 10/26/23 05:18
Aat-U-Dtuwdnsprcw Pept 18263 pg/ml 10/24/23 12:13
Albumin 2.8 g/dl (3.5-5.0) L 10/23/23 19:01
Physical Exam
-
Vital Signs:
Vital Signs
Temp Pulse Resp BP Pulse Ox
97.4 F 102 11 104/68 97
10/26/23 16:03 10/26/23 16:00 10/26/23 16:00 10/26/23 16:00 10/26/23 16:00
Cardiovascular:: Regular rate and rhythm
Respiratory:: Bilateral: CTA
Lung Excursion:: Normal
Abdomen:: Nontender and Soft
Bowel Sounds:: Normal
Extremity Edema:: None: Bilateral:
Marquez Catheter: No
[2023-10-26] MEDS: LOVENOX 40 MG SC (17:23)
[2023-10-26] MEDS: STERILE WATER FOR INJECTION 20 ML IV (17:24)
[2023-10-26] MEDS: ROCEPHIN 2000 MG IV (17:24)
[2023-10-26] MEDS: SODIUM CHLORIDE 3% 250 IV (17:24)
[2023-10-26] MEDS: LASIX 20 MG IV (17:24)
[2023-10-26] MEDS: ULTRAM 25 MG PO (18:10)
[2023-10-26] MEDS: COREG 3.125 MG PO (20:28)
[2023-10-26 21:28] LABS: Osmolality Urine 247 mOsm/kg (300-900)
[2023-10-26] MEDS: NEURONTIN 100 MG PO (21:28)
[2023-10-26 21:37] LABS: Blood Urea Nitrogen 22 mg/dl (7-17); Calcium 8.8 mg/dl (8.4-10.2); Carbon Dioxide 24 mmol/L (22-30); Chloride 90 mmol/L (98-107); Estimated Creatinine Clearance 49 ml/min; Glucose 116 mg/dl (70-99); Potassium 3.3 mmol/L (3.5-5.1); Sodium 123 mmol/L (135-145); eGFR > 60.00
[2023-10-26] MEDS: KCL 40 MEQ PO (22:39)
[2023-10-26] MEDS: AMBIEN 5 MG PO (22:39)
--- NOTE | 2023-10-26 22:54 | PTCARENOTE ---
BMP resulted potassium 3.3 and Sodium 123, Urine osmolarity was 247. Results TT to Judy RODRÍGUEZ. Orders given for PO Potassium and given. Received pt awake and alert and oriented. Heart monitor shows Sinus tachy with BBB, Heart monitor
interprets it as VT at times. Removed and replaced Heart monitor stickers and this helped the monitor to read the rhythm properly. Pt was getting upset over all the alarms coming from her monitor. The pulse Ox monitor was reading a low pleth and
not picking up her POx well. Reapplied a new sensor with some improvement. Gave pt Tessalon Perles for a cough, and Tylenol for upper R back pain and also asked for Ambien for sleep. Gave pt a back rub also with some help in calming pt and helping
her to relax. Given some emotional support with active listening and pt is now calm and more restful. Will continue to monitor patient.
[2023-10-27] VITALS (20 sets, daily range): BP systolic 88–118; BP diastolic 55–89; BMI 25.4
[2023-10-27] MEDS: SODIUM CHLORIDE 3% 250 IV (02:13)
--- NOTE | 2023-10-27 04:17 | PTCARENOTE ---
Pt was up OOB to the bathroom due to urgency with her bowels. Wears attends, was incontinent of loose brown BM. She is able to ambulate with a walker and her surgical boot on her R foot. Dressing changed. She has a dry non productive cough.
[2023-10-27 05:26] LABS: Hematocrit 21.7 % (37.0-47.0); Hemoglobin 7.6 g/dL (12.0-16.0); Mean Corpuscular Hgb 32.6 pg (27.0-31.0); Mean Corpuscular Volume 93.1 fL (81.0-99.0); Mean Platelet Volume 8.9 fL (7.4-10.4); Platelet Count 285 10^3/uL (130-400); Red Blood Cell Count 2.33 10^6/uL (4.20-5.40); Red Cell Dist. Width 13.1 % (11.5-14.5); White Blood Cell Count 13.1 10^3/uL (4.8-10.8)
[2023-10-27 05:57] LABS: Blood Urea Nitrogen 21 mg/dl (7-17); Calcium 8.9 mg/dl (8.4-10.2); Carbon Dioxide 21 mmol/L (22-30); Chloride 96 mmol/L (98-107); Estimated Creatinine Clearance 55 ml/min; Glucose 108 mg/dl (70-99); Magnesium 1.8 mg/dl (1.6-2.3); Sodium 127 mmol/L (135-145); eGFR > 60.00
[2023-10-27] MEDS: FLORASTOR 250 MG PO ×2 (08:16→19:51)
[2023-10-27] MEDS: COREG PO (08:17)
[2023-10-27] MEDS: LIDOCAINE 4% PATCH TOPICAL ×2 (08:41)
--- NOTE | 2023-10-27 09:34 | CON.GI ---
Consultation
-
Date/Time Consultation Requested: 10/27/23 0745
Date/Time Consultation Performed: 10/27/23 0915
Requesting Provider: Dr. Smith
Performing Provider: Dr. Bowen / Perri Arango PA-C
Reason for Consultation: anemia
Medical History
Chief Complaint / HPI
Chief Complaint: anemia
History of Present Illness:
This is a 58 year old female with a past medical history of fibromyalgia, GERD and colon polyps who recently admitted at for osteomyelitis of the right foot discharged home on 09/27/23 with PICC line on IV antibiotics (Rocephin) to continue until
the end of October. Flagyl was added to the regimen and she started with nausea, vomiting and diarrhea shortly after starting. She was experiencing pain in her foot so was taking significant amounts of NSAIDs as well (Ibuprofen 800mg three times
daily). The diarrhea is described as loose, watery, brown stool without any melena or hematochezia. She feels nauseous and c/o bilious vomiting (no hematemesis or coffee grounds emesis). She denies fever, chills, abdominal pain or chest pain. She
stopped the Flagyl on 10/18/23 as recommended by ID, but her symptoms persisted. She felt extreme fatigue/weakness, so returned to on 10/23/23, where she was found to be hyponatremic (Na 115) and mildly hypokalemic (K 3.3) and Hgb of 8.9 with
normal MCV. She was evaluated by Nephrology; echocardiogram was ordered and showed new findings of moderate to severe MR with EF 35-40% with Cardiology consultation, recommending cardiac catheterization to rule out underlying CAD. GI has been
consulted for anemia.
At discharge on 09/27/23, most recent Hgb was 9.4. Today, 10/27/23, Hgb is 7.6. Patient denies any scooter bleeding; no black/bloody stools or hematemesis as noted previously. She takes omeprazole 20mg daily for reflux, which she states works well to
control her GERD. She does admit to the recent heavy NSAID use, and admits to drinking 8 alcoholic drinks/week (beer or wine). She had an endoscopy in [address] Bateman which showed a Schatzki ring (which was dilated with balloon dilation to 20mm)
and an irregular Z line; esophageal biopsies showed chronic esophagitis, negative for Stover's esophagus. She had colonoscopy in 2018 which showed diverticulosis and a small adenoma in the ascending colon. Diarrhea has improved since coming to the
hospital and stool studies were negative (C diff, salmonella, shigella, aeromonas, plesiomonas, campylobacter, shiga toxin, norovirus all negative). She does complain of dysphagia and hoarseness, which she states has been a chronic issue for her.
The dysphagia did not improve after her last EGD with dilation in 2021. She states she saw ENT for this as well, was scoped, reporteldy negative. She is a non-smoker. There is no family history of GI malignancies, IBD or celiac disease.
Past Medical History
Past Medical History: Fibromyalgia, GERD and Other (osteomyelitis R foot, anxiety, depression, HTN (not on medication), colon polyps)
Past Surgical History: Other (breast reduction)
Social History
Tobacco: Non-Smoker
Alcohol: Other ('social' - 8 drinks/week)
Drug: None
Personal:
Employment: Employed
Family History
Family History: Other (no family history of GI malignancies, IBD or celiac disease)
Allergies / Home Medications
Allergy/AdvReac Type Severity Reaction Status Date / Time
metronidazole Allergy Severe Verified 10/23/23 20:52
nausea
Medication Instructions Recorded
Vitamin B12 Chew 1 tab PO DAILY Supplement 09/17/23
ascorbic acid (vitamin C) 500 mg 500 mg PO DAILY Supplement 09/17/23
tablet (Vitamin C)
escitalopram oxalate 5 mg tablet 5 mg PO DAILY Depression 09/17/23
(Lexapro)
fexofenadine-pseudoephedrine ER 0.5 tab PO DAILY Allergies 09/17/23
180 mg-240 mg tablet,ext.release
24 hr (Elizabeth-D 24 Hour)
ibuprofen 800 mg tablet 800 mg PO Q6H PRN pain 09/17/23
zolpidem 5 mg tablet (Ambien) 5 mg PO HS PRN insomnia 09/17/23
ceftriaxone 2 gram solution for 2,000 mg IV DAILY@1600 Infection 10/23/23
injection
omeprazole 20 mg capsule,delayed 20 mg PO DAILY GERD 10/23/23
release
ondansetron HCl 4 mg tablet 4 mg PO Q6H PRN nausea/vomiting 10/23/23
Review of Systems
-
History Source: Patient
All other systems: A 12 pt ROS was Negative except as stated above in HPI
Vital Signs
Temp Pulse Resp BP Pulse Ox
98.3 F 114 20 100/55 97
10/27/23 03:35 10/27/23 08:14 10/27/23 08:14 10/27/23 08:14 10/27/23 08:14
Physical Exam
Exam
General: Well Developed, Well Nourished and No Apparent Distress
Respiratory: Clear
Cardiac: Regular Rhythm
GI: Soft, Non Tender, Non Distended and Normal Bowel Sounds
Rectal: Other
Musculoskeletal: No Edema
Skin: Warm and Dry
Neuro: AO x 3
Psych: Calm
Stool heme testing by nursing revealed heme negative brown stool
Results
WBC 13.1 10^3/uL (4.8-10.8) H 10/27/23 05:16
Hgb 7.6 g/dL (12.0-16.0) L 10/27/23 05:16
Hct 21.7 % (37.0-47.0) L 10/27/23 05:16
MCV 93.1 fL (81.0-99.0) 10/27/23 05:16
Plt Count 285 10^3/uL (130-400) 10/27/23 05:16
Absolute Neuts (auto) 6.7 10^3/uL (1.4-6.5) H 10/23/23 19:01
Sodium 127 mmol/L (135-145) L 10/27/23 05:16
Potassium 4.0 mmol/L (3.5-5.1) 10/27/23 05:16
Chloride 96 mmol/L (98-107) L 10/27/23 05:16
Carbon Dioxide 21 mmol/L (22-30) L 10/27/23 05:16
BUN 21 mg/dl (7-17) H 10/27/23 05:16
Creatinine 0.9 mg/dL (0.6-1.0) 10/27/23 05:16
Calcium 8.9 mg/dl (8.4-10.2) 10/27/23 05:16
Total Bilirubin 0.8 mg/dl (0.2-1.3) 10/23/23 19:01
AST 24 U/L (14-36) 10/23/23 19:01
ALT 58 U/L (0-35) H 10/23/23 19:01
Alkaline Phosphatase 355 U/L (38-126) H 10/23/23 19:01
Diagnostic Image Results:
Chest x-ray, 10/23/23
1. � Right upper extremity PICC line in place with the catheter tip terminating at the cavoatrial junction.
2. � Mild acute interstitial and alveolar cardiogenic pulmonary edema.
3. � Minimal bilateral pleural effusions.
Prior GI Procedures:
EGD:
04/06/2022, Dr. Bateman
Impression:� � � � � � - Web in the upper third of the esophagus. Dilated.
�� � � � � � � � � � � - Low-grade of narrowing Schatzki ring. Dilated.
�� � � � � � � � � � � - Z-line irregular, at the gastroesophageal junction.
�� � � � � � � � � � � Biopsied.
�� � � � � � � � � � � - Normal stomach.
�� � � � � � � � � � � - Normal examined duodenum.
04/06/2024, Dr. Bateman
Impression:� � � � � - Z-line irregular, at the gastroesophageal junction.
�� � � � � � � � � � Biopsied.
�� � � � � � � � � � - Esophageal mucosal changes suggestive of eosinophilic
�� � � � � � � � � � esophagitis. Biopsied.
�� � � � � � � � � � - Normal stomach. Biopsied.
�� � � � � � � � � � - Normal examined duodenum. Biopsied.
Colonoscopy:
04/06/2018, Dr. Bateman
Impression:� � � � � - One diminutive polyp in the ascending colon, removed
�� � � � � � � � � � with a jumbo cold forceps. Resected and retrieved.
�� � � � � � � � � � - Diverticulosis in the sigmoid colon.
Assessment / Plan
-
This is a 58 year old female with a past medical history of fibromyalgia, GERD and colon polyps who recently admitted at for osteomyelitis of the right foot discharged home on 09/27/23 with PICC line on IV antibiotics (Rocephin) to continue until
the end of October. Flagyl was added to the regimen and she started with nausea, vomiting and diarrhea shortly after starting. She was experiencing pain in her foot so was taking significant amounts of NSAIDs as well (Ibuprofen 800mg three times
daily). The diarrhea is described as loose, watery, brown stool without any melena or hematochezia. She feels nauseous and c/o bilious vomiting (no hematemesis or coffee grounds emesis). She denies fever, chills, abdominal pain or chest pain. She
stopped the Flagyl on 10/18/23 as recommended by ID, but her symptoms persisted. She felt extreme fatigue/weakness, so returned to on 10/23/23, where she was found to be hyponatremic (Na 115) and mildly hypokalemic (K 3.3) and Hgb of 8.9 with
normal MCV. She was evaluated by Nephrology; echocardiogram was ordered and showed new findings of moderate to severe MR with EF 35-40% with Cardiology consultation, recommending cardiac catheterization to rule out underlying CAD. GI has been
consulted for anemia.
At discharge on 09/27/23, most recent Hgb was 9.4. Today, 10/27/23, Hgb is 7.6. Patient denies any scooter bleeding; no black/bloody stools or hematemesis as noted previously. She takes omeprazole 20mg daily for reflux, which she states works well to
control her GERD. She does admit to the recent heavy NSAID use, and admits to drinking 8 alcoholic drinks/week (beer or wine). She had an endoscopy in [address] Bateman which showed a Schatzki ring (which was dilated with balloon dilation to 20mm)
and an irregular Z line; esophageal biopsies showed chronic esophagitis, negative for Stover's esophagus. She had colonoscopy in 2018 which showed diverticulosis and a small adenoma in the ascending colon. Diarrhea has improved since coming to the
hospital and stool studies were negative (C diff, salmonella, shigella, aeromonas, plesiomonas, campylobacter, shiga toxin, norovirus all negative). She does complain of dysphagia and hoarseness, which she states has been a chronic issue for her.
The dysphagia did not improve after her last EGD with dilation in 2021. She states she saw ENT for this as well, was scoped, reporteldy negative. She is a non-smoker. There is no family history of GI malignancies, IBD or celiac disease.
IMPRESSION / PLAN:
Anemia, normocytic
-Hgb 7.6 (was 9.4 on 09/27/23)
-iron studies and Vitamin B12/folate pending
-heavy NSAID use recently, with etiology of the anemia including possible gastritis, bleeding ulcer
-restart PPI
-Cardiology requesting anemia workup prior to cardiac catheterization
-Case d/w Cardiology, she is cleared from cardiac standpoint for endoscopy
-trend Hgb, monitor closely
-transfuse if Hgb falls below 7
-case d/w Dr. Bowen, pt NPO and will plan for endoscopy today
Diarrhea
-improving
-negative stool studies, including Cdiff
Colon Polyps, h/o adenoma
-pt is overdue for surveillance colonoscopy, can follow up outpatient
Hyponatremia
-Nephrology has been consulted
Cardiology workup as discussed.
Other medical issues managed as per Hospitalist.
We will follow.
-
-
Thank you for consultation and allowing me to participate in the patient's care. Please call the crowd controller GI physician during the after hours with any questions or concerns.
--- NOTE | 2023-10-27 09:43 | W.PN.HOSP.TC ---
Today's Communication/Plan
-
see A/P
Assessment / Plan
Assessment / Plan
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 She was admitted Sep 2023 for foot infection, underwent incision and drainage and had been on IV antibiotic Ceftriaxone.
ID called in for Flagyl which made her ill with nausea and she has been having diarrhea.
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
A/P:
# Severe hyponatremia - suspect multifactorial due to hypovolemia from poor PO intake and diarrhea, and SIADH component
s/p NSS 1L bolus in ER
s/p 3% NSS per renal
sodium level improved from 115 on admission to 127
Cont to follow Sodium level closely
TSH 1.24, random cortisol level 11.7
Renal on board
# Severe hypokalemia
resolved after repletion
# New acute systolic CHF
# Acute hypoxic respiratory insufficiency
Placed on 2L NC, weaned to RA, pt NOT on home O2
CXR with Mild acute interstitial and alveolar cardiogenic pulmonary edema. Minimal bilateral pleural effusions.
BNP 23803
Echo: EF 35-40%, Global hypokinesis. Moderate to severe mitral regurgitation.�
s/p IV Lasix
Card on board, timing of cardiac cath TBD
# Acute on chronic anemia
Follow iron panel, B12, folate level
transfuse 1 unit PRBC
GI eval prior to cardiac cath
# Diarrheal illness, likely ABx related
She had been off Laxatives since 09/27/23
C Diff and norovirus negative, stool Cx negative
stopped PO PPI, stopped Miralax
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
Was recommended by ID to cont IV antibiotic Ceftriaxone through�11/01/23.
PT OT recc HH
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
started gabapentin 100 mg HS
# Cough, intermittent; likely related to acute CHF
COVID/ Flu/RSV negative
Tessalon PRN for cough
# Fibromyalgia HX, Stable
Hold Lexapro/SSRI�due to current severe hyponatremia
Added lidocaine patch for shoulder and lower back
# Insomnia
Cont EMERGENCY NURSE Ambien PRN
DVT Prophylaxis:�Lovenox SQ
Full code
DW RN
DW Card team
DW GI
Anticipated Discharge: 24 - 48 hours
Subjective/Interval History
-
Date of Service: October 27, 2023
Objective Data
-
Labs:
Laboratory Results
10/27/23
05:16
WBC 13.1 H
Hgb 7.6 L
Hct 21.7 L
Plt Count 285
Sodium 127 L
Potassium 4.0
Chloride 96 L
Carbon Dioxide 21 L
BUN 21 H
Creatinine 0.9
Glucose 108 H
Calcium 8.9
Vital Signs:
Vital Signs
Temp Pulse Resp BP Pulse Ox
36.8 C 114 20 100/55 97
10/27/23 03:35 10/27/23 08:14 10/27/23 08:14 10/27/23 08:14 10/27/23 08:14
I&O
10/26/23 10/27/23 10/28/23
06:59 06:59 06:59
Intake Total 680 / 680 540 / 540
Output Total 200 / 200 600 / 600
Balance 480 / 480 -60 / -60
Review of Systems
-
Constitutional: Reports Fatigue
Physical Exam
-
General: Well Developed, Well Nourished, Comfortable and Conversant
Respiratory: Clear to Auscultation and Non Labored Respirations; Negative Wheezes or Accessory Resp Muscle Use
Cardiac: Regular Rhythm and S1/S2
GI: Soft and Nontender
Musculoskeletal: No Edema
Skin: Warm, Dry and Other (R foot with dressing); Negative Rash
Neuro: Awake
Psych: Calm and Intact Judgement/Insight
Data Reviewed
-
Diagnostic Radiology: Image personally visualized and interpreted and Report Reviewed by me
Labs: Labs Reviewed by me
[2023-10-27 10:54] LABS: Iron 22 ug/dl (37-170)
[2023-10-27 11:03] LABS: Percent Saturation 14 % (20-50); Total Iron Binding Capacity 156 ug/dl (265-497)
--- NOTE | 2023-10-27 11:28 | W.PN.NEPH.PH ---
Today's Communication / Plan
-
2% saline
recheck labs later today
Assessment/Plan
-
Assessment:
Severe hyponatremia (roxanne 115)
Severe hypokalemia
hypotension
Diarrheal illness
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
Fibromyalgia HX
HTN not on meds
GERD
Anxiety
Plan:
Recent h/o OM of right foot s/p I&D on abx IV (CTX until 11/01)
arrived with diarrhea, found to have severe hyponatremia with urine studies consistent with hypovolemic hyponatremia.
TSH and cortisol were ok
sodium improving slowly with 3% and lasix
she restarted with diarrhea now likely use 2% saline and prn lasix
GI eval in progress for anemia, fe def-will start IV fe course
agree with holding SSRI
echo with 35% EF, BNP 21K, on 2L O2 so concern for new diagnosis of heart failure. [facility] later time
midodrine on board PRN
-
-
Date of Service: October 27, 2023
CC / HPI / ROS
-
Chief Complaint:
hyponatremia
History of Present Illness:
hyponatremia, sodium better at 127
diarrheal illness still present
BP low normal range and tachy
Review of Systems:
no cp or sob
remains on O2
diarrhea returned yesterday
no dizziness
Labs
-
Labs:
WBC 13.1 10^3/uL (4.8-10.8) H 10/27/23 05:16
RBC 2.33 10^6/uL (4.20-5.40) L 10/27/23 05:16
Hgb 7.6 g/dL (12.0-16.0) L 10/27/23 05:16
Hct 21.7 % (37.0-47.0) L 10/27/23 05:16
Plt Count 285 10^3/uL (130-400) 10/27/23 05:16
Sodium 127 mmol/L (135-145) L 10/27/23 05:16
Potassium 4.0 mmol/L (3.5-5.1) 10/27/23 05:16
Chloride 96 mmol/L (98-107) L 10/27/23 05:16
Carbon Dioxide 21 mmol/L (22-30) L 10/27/23 05:16
BUN 21 mg/dl (7-17) H 10/27/23 05:16
Creatinine 0.9 mg/dL (0.6-1.0) 10/27/23 05:16
eGFR > 60.00 10/27/23 05:16
Glucose 108 mg/dl (70-99) H 10/27/23 05:16
Calcium 8.9 mg/dl (8.4-10.2) 10/27/23 05:16
Bxf-L-Fwvzuagecpy Pept 15547 pg/ml 10/24/23 12:13
Albumin 2.8 g/dl (3.5-5.0) L 10/23/23 19:01
Physical Exam
-
Vital Signs:
Vital Signs
Temp Pulse Resp BP Pulse Ox
98.9 F 114 20 100/55 97
10/27/23 11:13 10/27/23 08:14 10/27/23 08:14 10/27/23 08:14 10/27/23 08:14
Cardiovascular:: Regular rate and rhythm (tachy)
Respiratory:: Bilateral: CTA
Lung Excursion:: Normal
Abdomen:: Nontender and Soft
Extremity Edema:: None: Bilateral:
Marquez Catheter: No
[2023-10-27 12:11] LABS: Folate 17.3 ng/ml (2.76-20); Vitamin B12 > 1000 pg/ml (239-931)
--- NOTE | 2023-10-27 12:19 | W.PN.CARDCBS ---
Today's Communication / Plan
-
Hold off on catheterization until anemia is worked up
Okay for GI procedure without further testing
Consider catheterization when stable to get antiplatelet agents per GI
Continue Coreg but unable to hold lisinopril due to low blood pressure
Consider eventual Jardiance or Farxiga
Impression / Plan
-
PC: Dr. Bailey
Cardiology: None prior to admission
Impression:
Admitted with diarrhea and severe hyponatremia 10/23/23
Acute HFrEF, EF 35-40%
Ischemic versus nonischemic cardiomyopathy, suspect the latter
Moderate to severe MR
LBBB/IVCD
Anemia
Recent admission for right foot osteomyelitis 09/20/23 until 09/27/23
Hyperhidrosis
Echo 10/24/23: EF 35-40%, global hypokinesis, mod to sev MR
Plan:
Will cancel cardiac catheterization given worsening anemia
GI workup plan
Okay for endoscopy without further testing
When anemia has been stable and okay to get antiplatelet agent will consider cardiac catheterization
Cardiac catheterization could be done to an outpatient but patient might prefer to have done while in hospital
Diuretics being managed by nephrology for hyponatremia
Tolerating Coreg although with borderline blood pressure we will hold off on lisinopril
Could consider adding Jardiance or Farxiga but patient might want to limit medications
Likely secondary MR from cardiomyopathy
It may be that IVCD left bundle is responsible for LV dysfunction. If so, resynchronization therapy may need to be considered.
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
Subjective
Date of Service: October 27, 2023
No complaints. Catheterization canceled given worsening anemia and plan for GI workup
Objective
Labs:
10/27/23 05:16
Labs
Hgb 7.6 g/dL (12.0-16.0) L 10/27/23 05:16
Hct 21.7 % (37.0-47.0) L 10/27/23 05:16
Plt Count 285 10^3/uL (130-400) 10/27/23 05:16
Sodium 127 mmol/L (135-145) L 10/27/23 05:16
Potassium 4.0 mmol/L (3.5-5.1) 10/27/23 05:16
BUN 21 mg/dl (7-17) H 10/27/23 05:16
Creatinine 0.9 mg/dL (0.6-1.0) 10/27/23 05:16
Glucose 108 mg/dl (70-99) H 10/27/23 05:16
Vital Signs and I&O:
Vital Signs
Temp Pulse Resp BP Pulse Ox
98.9 F 117 20 99/63 99
10/27/23 11:13 10/27/23 12:09 10/27/23 12:09 10/27/23 12:00 10/27/23 12:09
Vital Signs
Temp Pulse Resp BP Pulse Ox
98.9 F 117 20 99/63 99
10/27/23 11:13 10/27/23 12:09 10/27/23 12:09 10/27/23 12:00 10/27/23 12:09
Intake & Output
10/25/23 10/26/23 10/27/23 10/28/23
06:59 06:59 06:59 06:59
Intake Total 1830 / 1830 680 / 680 540 / 540 0 / 0
Output Total 150 / 150 200 / 200 600 / 600
Balance 1680 / 1680 480 / 480 -60 / -60 0 / 0
Physical Exam
Physical Exam
General: Well developed, well nourished in NAD.
Neck: Supple, no JVD, HJR, carotids +2 B/L, no bruits bilaterally.
Heart: Non displaced PMI, RRR, no murmurs, No S3, S4, no rubs.
Lungs: Clear to auscultation bilaterally, no wheeze, rhonchi, rubs bilaterally,
normal expiratory phase.
Extremities: No clubbing, cyanosis or edema bilaterally.
Neuro: Grossly nonfocal, awake, alert and oriented x3.
[2023-10-27] MEDS: SODIUM CHLORIDE 249.974999999999994 MEQ IV (12:56)
[2023-10-27 15:12] LABS: Osmolality Urine 390 mOsm/kg (300-900)
--- NOTE | 2023-10-27 16:27 | VNURNOTE ---
[facility] referral completed in [facility] after review of chart.
[2023-10-27 17:32] LABS: Sodium 127 mmol/L (135-145)
[2023-10-27] MEDS: STERILE WATER FOR INJECTION 20 ML IV (17:47)
[2023-10-27] MEDS: ROCEPHIN 2000 MG IV (17:47)
[2023-10-27] MEDS: LOVENOX SC (18:31)
--- NOTE | 2023-10-27 19:47 | PTCARENOTE ---
Patient experienced 'head to toe tingling and burning sensation' as RN was administering IV Rocephin. Pt stated that she 'thinks she may be allergic to Rocephin' antibiotic. RN told patient she has received this medication 3 other times, per her
MAR. Earlier in the shift patient had also told RN that she was allergic to IV lasix, referencing these same exact symptoms (tingling and burning) upon administration. RN had relayed this to nephro , and the scheduled dose of IV lasix for today
was not given.
RN relayed patients response to IV Rocephin to MD Smith. Patient stated to RN: 'make sure I never get that antibiotic again'. Patient wanted Rocephin added to her allergies list.
See MAR for additional details.
[2023-10-27] MEDS: TESSALON PERLES 200 MG PO (19:51)
[2023-10-27] MEDS: TYLENOL 650 MG PO (19:51)
[2023-10-27] MEDS: NEURONTIN PO (19:52)
[2023-10-27] MEDS: COREG 3.125 MG PO (19:52)
--- NOTE | 2023-10-27 20:13 | W.PN.UPDATE ---
Update Note
Progress Note Update
EGD was normal. Her colonoscopy was in 2018 which showed small adenoma and diverticulosis. She is due for colonoscopy which can be arranged as OP. She should complete colonoscopy before we can give clearance to begin anti-platelet therapy,
however the risk of bleeding lesion is low and can begin anti-platelet therapy if cardiology feels patient can not wait until OP colonoscopy is completed.
[2023-10-27] MEDS: ULTRAM 25 MG PO (20:45)
[2023-10-27] MEDS: NEURONTIN 100 MG PO (21:40)
[2023-10-27] MEDS: AMBIEN 5 MG PO (21:40)
[2023-10-28] VITALS (14 sets, daily range): BP systolic 93–120; BP diastolic 56–94; PULSE 113; BMI 25.0
--- NOTE | 2023-10-28 03:27 | PTCARENOTE ---
assumed care of patient- PRBC's infusing at start of shift. pt very anxious- positive environment maintained. given pain medication per NOV for lower back pain as patient refused lidocaine patches in the morning. harsh dry cough noted- PRN tessalon
pearles given per NOV. ST 110-120s at start of shift. 100s after coreg dose was given. tried to wean pt off 02- pt did go drops to 80s while sleeping- increased to 3L. x1 assist to BSC- incontinent of loose stool- cleaned up. care ongoing.
[2023-10-28] MEDS: TESSALON PERLES 200 MG PO ×3 (04:27→19:29)
[2023-10-28 04:47] LABS: Hematocrit 23.4 % (37.0-47.0); Hemoglobin 8.2 g/dL (12.0-16.0); Mean Corpuscular Hgb 32.9 pg (27.0-31.0); Platelet Count 281 10^3/uL (130-400); Red Blood Cell Count 2.49 10^6/uL (4.20-5.40); Red Cell Dist. Width 13.2 % (11.5-14.5)
[2023-10-28 05:39] LABS: Blood Urea Nitrogen 17 mg/dl (7-17); Carbon Dioxide 20 mmol/L (22-30); Chloride 102 mmol/L (98-107); Estimated Creatinine Clearance 62 ml/min; Glucose 99 mg/dl (70-99); Potassium 4.1 mmol/L (3.5-5.1); Sodium 127 mmol/L (135-145); eGFR > 60.00
--- NOTE | 2023-10-28 08:25 | W.PN.HOSP.TC ---
Today's Communication/Plan
-
pt c/o severe diarrhea
check repeat C diff/norovirus/COVID
Cont probiotics
wean O2 as tolerated
Assessment / Plan
Assessment / Plan
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 She was admitted Sep 2023 for foot infection, underwent incision and drainage and had been on IV antibiotic Ceftriaxone.
ID called in for Flagyl which made her ill with nausea and she has been having diarrhea.
She follows with her family doctor and blue split trimmer for wound care.
A/P:
# Severe hyponatremia - suspect multifactorial due to hypovolemia from poor PO intake and diarrhea, and SIADH component
s/p NSS 1L bolus in ER
s/p 3% NSS per renal
sodium level improved from 115 on admission to 127
Cont to follow Sodium level
TSH 1.24, random cortisol level 11.7
Renal on board
# Severe hypokalemia
resolved after repletion
# New acute systolic CHF
# Acute hypoxic respiratory insufficiency
Placed on 2L NC, weaned to RA, pt NOT on home O2
CXR with Mild acute interstitial and alveolar cardiogenic pulmonary edema. Minimal bilateral pleural effusions.
BNP 27442
Echo: EF 35-40%, Global hypokinesis. Moderate to severe mitral regurgitation.�
s/p IV Lasix
Card on board, timing of cardiac cath TBD (possibly outpatient)
# Acute on chronic anemia
iron panel, B12, folate levels acceptable
transfused 1 unit PRBC
s/p EGD eval prior to cardiac cath 10/27: EGD was normal.� Her colonoscopy was in 2017 which showed small adenoma and diverticulosis.� She is due for colonoscopy which can be arranged as OP.� She should complete colonoscopy before we can give
clearance to begin anti-platelet therapy, however the risk of bleeding lesion is low and can begin anti-platelet therapy if cardiology feels patient can not wait until OP colonoscopy is completed.
# Diarrheal illness, likely ABx related
Worsening diarrhea for 2 days
She had been off Laxatives since 09/27/23
C Diff/norovirus/stool Cx negative from admission
Check repeat C diff and Norovirus, check COVID
stopped PO PPI, stopped Miralax
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
Was recommended by ID to cont IV antibiotic Ceftriaxone through�11/01/23.
PT OT recc HH
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
started gabapentin 100 mg HS
# Cough, intermittent; likely related to acute CHF
COVID/ Flu/RSV were negative
Tessalon PRN for cough
# Fibromyalgia HX, Stable
Hold Lexapro/SSRI�due to current severe hyponatremia
Added lidocaine patch for shoulder and lower back
# Insomnia
Cont [employer] Ambien PRN
DVT Prophylaxis:�Lovenox SQ
Full code
DW RN
Anticipated Discharge: Within 24 hours
Subjective/Interval History
-
Date of Service: October 28, 2023
Objective Data
-
Labs:
Laboratory Results
10/28/23
04:31
WBC 14.0 H
Hgb 8.2 L
Hct 23.4 L
Plt Count 281
Sodium 127 L
Potassium 4.1
Chloride 102
Carbon Dioxide 20 L
BUN 17
Creatinine 0.8
Glucose 99
Calcium 9.0
Vital Signs:
Vital Signs
Temp Pulse Resp BP Pulse Ox
36.7 C 109 31 110/74 96
10/28/23 08:00 10/28/23 06:00 10/28/23 06:00 10/28/23 06:00 10/28/23 06:00
I&O
10/27/23 10/28/23 10/29/23
06:59 06:59 06:59
Intake Total 540 / 540 450 / 450
Output Total 600 / 600
Balance -60 / -60 450 / 450
Review of Systems
-
Abdomen/GI: Reports Diarrhea (worsening over the past 2 days )
Physical Exam
-
General: Well Developed, Well Nourished, Comfortable and Conversant
Respiratory: Clear to Auscultation and Non Labored Respirations; Negative Wheezes or Accessory Resp Muscle Use
Cardiac: Regular Rhythm and S1/S2
GI: Soft and Nontender
Musculoskeletal: No Edema
Skin: Warm, Dry and Other (R foot with dressing); Negative Rash
Neuro: Awake
Psych: Calm and Intact Judgement/Insight
Data Reviewed
-
Diagnostic Radiology: Image personally visualized and interpreted and Report Reviewed by me
Labs: Labs Reviewed by me
[2023-10-28] MEDS: FLORASTOR 250 MG PO ×2 (08:31→19:28)
[2023-10-28] MEDS: COREG 3.125 MG PO ×2 (08:31→19:28)
[2023-10-28] MEDS: LIDOCAINE 4% PATCH TOPICAL ×2 (09:08)
[2023-10-28 10:06] LABS: COVID-19 Antigen Negative (Negative)
--- NOTE | 2023-10-28 10:42 | W.PN.CARDCBS ---
Today's Communication / Plan
-
Start baby aspirin daily await GI clearance for dual antiplatelet therapy if catheterization is to be scheduled as inpatient
Remains tachycardic but hypotension limits further increases in carvedilol
Medications are limited for cardiomyopathy given hypotension requiring midodrine
Impression / Plan
-
PC: Dr. Bailey
Cardiology: None prior to admission
Impression:
Admitted with diarrhea and severe hyponatremia 10/23/23
Acute HFrEF, EF 35-40%
Ischemic versus nonischemic cardiomyopathy, suspect the latter
Moderate to severe MR
LBBB/IVCD
Anemia
Recent admission for right foot osteomyelitis 09/20/23 until 09/27/23
Hyperhidrosis
Echo 10/24/23: EF 35-40%, global hypokinesis, mod to sev MR
Plan:
Catheterization was postponed given worsening anemia which has improved after transfusion
GI is okay with aspirin.
Need clearance to do dual antiplatelet agents if catheterization is to be performed as an inpatient as this would be needed post stent
Cardiac catheterization could be done to an outpatient but patient prefers to have done while in hospital
Diuretics being managed by nephrology for hyponatremia
Tolerating Coreg although with borderline blood pressure we will hold off on lisinopril/Aldactone
Remains tachycardic but hypotension limits further increases in carvedilol
Could consider adding Jardiance or Farxiga but patient might want to limit medications and could potentially worsen hypotension
Likely secondary MR from cardiomyopathy
It may be that left bundle is responsible for LV dysfunction. If so, resynchronization therapy may need to be considered.
Discussed with primary service as well as GI and nephrology via [place] text.
Progress Note - Health Science Writer
Subjective
Date of Service: October 28, 2023
No complaints
Objective
Labs:
10/28/23 04:31
10/28/23 04:31
Labs
Hgb 8.2 g/dL (12.0-16.0) L 10/28/23 04:31
Hct 23.4 % (37.0-47.0) L 10/28/23 04:31
Plt Count 281 10^3/uL (130-400) 10/28/23 04:31
Sodium 127 mmol/L (135-145) L 10/28/23 04:31
Potassium 4.1 mmol/L (3.5-5.1) 10/28/23 04:31
BUN 17 mg/dl (7-17) 10/28/23 04:31
Creatinine 0.8 mg/dL (0.6-1.0) 10/28/23 04:31
Glucose 99 mg/dl (70-99) 10/28/23 04:31
Vital Signs and I&O:
Vital Signs
Temp Pulse Resp BP Pulse Ox
98.1 F 106 31 117/82 96
10/28/23 08:00 10/28/23 08:31 10/28/23 06:00 10/28/23 08:31 10/28/23 06:00
Vital Signs
Temp Pulse Resp BP Pulse Ox
98.1 F 106 31 117/82 96
10/28/23 08:00 10/28/23 08:31 10/28/23 06:00 10/28/23 08:31 10/28/23 06:00
Intake & Output
10/26/23 10/27/23 10/28/23 10/29/23
06:59 06:59 06:59 06:59
Intake Total 680 / 680 540 / 540 450 / 450
Output Total 200 / 200 600 / 600
Balance 480 / 480 -60 / -60 450 / 450
Physical Exam
Physical Exam
General: Well developed, well nourished in NAD.
Neck: Supple, no JVD, HJR, carotids +2 B/L, no bruits bilaterally.
Heart: Non displaced PMI, RRR, no murmurs, No S3, S4, no rubs.
Lungs: Clear to auscultation bilaterally, no wheeze, rhonchi, rubs bilaterally,
normal expiratory phase.
Extremities: No clubbing, cyanosis or edema bilaterally.
Neuro: Grossly nonfocal, awake, alert and oriented x3.
[2023-10-28] MEDS: TYLENOL 650 MG PO ×2 (10:59→19:28)
[2023-10-28] MEDS: VISBIOME 1 CAP PO (10:59)
[2023-10-28] MEDS: LOW STRENGTH ASPIRIN 81 MG PO (10:59)
[2023-10-28] MEDS: LIDOCAINE 4% PATCH 1 PATCH TOPICAL ×2 (11:00→11:01)
--- NOTE | 2023-10-28 12:03 | PTCARENOTE ---
Rec'd pt this AM. Provided extensive heart failure education. Stressed importance of med compliance. Educated on beta jesse. Pt expresses understanding but is apprehensive about taking these meds retirement. Pt with frequent small loose stool.
Covid neg. Stool studies sent to lab. vital signs stable. on RA currently.
--- NOTE | 2023-10-28 12:46 | W.PN.NEPH.PH ---
Today's Communication / Plan
-
lasix
Assessment/Plan
-
Assessment:
Severe hyponatremia (roxanne 115)
Severe hypokalemia
hypotension
Diarrheal illness
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
Fibromyalgia HX
HTN not on meds
GERD
Anxiety
Plan:
Recent h/o OM of right foot s/p I&D on abx IV (CTX until 11/01)
arrived with diarrhea, found to have severe hyponatremia with urine studies consistent with hypovolemic hyponatremia.
TSH and cortisol were ok
sodium stable at 127 despite 2% saline
she refused lasix yesterday but willing to try today-20mg IV now, FR 40 ounces/day
GI eval in progress for anemia, fe def-will start IV fe course
also with diarrhea
agree with holding SSRI
echo with 35% EF, BNP 21K, on 2L O2 so concern for new diagnosis of heart failure. [facility] later time per cards
midodrine on board PRN
-
-
Date of Service: October 28, 2023
CC / HPI / ROS
-
Chief Complaint:
hyponatremia
History of Present Illness:
hyponatremia, sodium same at 127
BP low normal range and tachy
no fever
hb better at 8.2
Review of Systems:
no cp or sob
off O2
diarrhea slightly better
c/o having body pains evenings daily, though was from lasix but still had symp off lasix
Labs
-
Labs:
WBC 14.0 10^3/uL (4.8-10.8) H 10/28/23 04:31
RBC 2.49 10^6/uL (4.20-5.40) L 10/28/23 04:31
Hgb 8.2 g/dL (12.0-16.0) L 10/28/23 04:31
Hct 23.4 % (37.0-47.0) L 10/28/23 04:31
Plt Count 281 10^3/uL (130-400) 10/28/23 04:31
Sodium 127 mmol/L (135-145) L 10/28/23 04:31
Potassium 4.1 mmol/L (3.5-5.1) 10/28/23 04:31
Chloride 102 mmol/L (98-107) 10/28/23 04:31
Carbon Dioxide 20 mmol/L (22-30) L 10/28/23 04:31
BUN 17 mg/dl (7-17) 10/28/23 04:31
Creatinine 0.8 mg/dL (0.6-1.0) 10/28/23 04:31
eGFR > 60.00 10/28/23 04:31
Glucose 99 mg/dl (70-99) 10/28/23 04:31
Calcium 9.0 mg/dl (8.4-10.2) 10/28/23 04:31
Sqh-F-Xxjicrfcxbo Pept 99623 pg/ml 10/24/23 12:13
Albumin 2.8 g/dl (3.5-5.0) L 10/23/23 19:01
Physical Exam
-
Vital Signs:
Vital Signs
Temp Pulse Resp BP Pulse Ox
98.3 F 103 19 105/79 95
10/28/23 11:10 10/28/23 12:00 10/28/23 12:00 10/28/23 12:00 10/28/23 12:01
Cardiovascular:: Regular rate and rhythm (tachy)
Lung Excursion:: Normal (decreased)
Abdomen:: Nontender and Soft
Extremity Edema:: None: Bilateral:
Marquez Catheter: No
[2023-10-28] MEDS: LASIX 20 MG IV (13:12)
[2023-10-28] MEDS: FERRLECIT 110 MG IV (13:12)
[2023-10-28] MEDS: ULTRAM 25 MG PO ×2 (14:31→20:17)
[2023-10-28] MEDS: LOVENOX 40 MG SC (16:41)
[2023-10-28] MEDS: STERILE WATER FOR INJECTION 20 ML IV (16:41)
[2023-10-28] MEDS: ROCEPHIN 2000 MG IV (16:41)
--- NOTE | 2023-10-28 17:00 | PTCARENOTE ---
While pt receiving IV Rocephin, complained of tingling feeling, same as she experienced yesterday when she rec'd this med. No shortness of breath,, no hives, remains on RA. RN stayed with pt and ensured she was feeling better. Dr. Smith notiifed via
TT.
--- NOTE | 2023-10-28 17:31 | PTCARENOTE ---
Educated pt on ways it improve her hyponatremia such as limiting free water consumption. Pt expressed understanding
[2023-10-28] MEDS: NEURONTIN 100 MG PO (21:46)
[2023-10-28] MEDS: AMBIEN 5 MG PO (21:46)
[2023-10-29] VITALS (20 sets, daily range): BP systolic 85–125; BP diastolic 63–82; BMI 25.6
[2023-10-29] MEDS: TESSALON PERLES 200 MG PO ×3 (01:00→22:53)
--- NOTE | 2023-10-29 01:47 | PTCARENOTE ---
assumed care of patient, pt able to make needs known. pt with multiple c/o coughing and back pain- PRN meds given, ice chips provided. pt okay on RA while awake- while sleeping oxygen 87-89%, 2L applied while sleeping.
[2023-10-29 05:27] LABS: Hematocrit 23.9 % (37.0-47.0); Hemoglobin 8.4 g/dL (12.0-16.0); Mean Corp Hgb Conc. 35.1 g/dL (33.0-37.0); Mean Corpuscular Hgb 32.3 pg (27.0-31.0); Mean Corpuscular Volume 91.9 fL (81.0-99.0); Platelet Count 321 10^3/uL (130-400); Red Cell Dist. Width 13.2 % (11.5-14.5); White Blood Cell Count 13.2 10^3/uL (4.8-10.8)
[2023-10-29 05:50] LABS: Blood Urea Nitrogen 16 mg/dl (7-17); Carbon Dioxide 21 mmol/L (22-30); Chloride 98 mmol/L (98-107); Estimated Creatinine Clearance 62 ml/min; Glucose 103 mg/dl (70-99); Potassium 3.9 mmol/L (3.5-5.1); Sodium 124 mmol/L (135-145); eGFR > 60.00
[2023-10-29] MEDS: COREG 3.125 MG PO ×2 (08:09→20:59)
[2023-10-29] MEDS: FLORASTOR 250 MG PO ×2 (08:09→20:58)
[2023-10-29] MEDS: LOW STRENGTH ASPIRIN 81 MG PO (08:09)
[2023-10-29] MEDS: VISBIOME 1 CAP PO (08:09)
[2023-10-29] MEDS: TYLENOL 650 MG PO ×3 (08:12→17:07)
--- NOTE | 2023-10-29 08:43 | W.PN.HOSP.TC ---
Today's Communication/Plan
-
see A/P
Assessment / Plan
Assessment / Plan
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 She was admitted Sep 2023 for foot infection, underwent incision and drainage and had been on IV antibiotic Ceftriaxone.
ID called in for Flagyl which made her ill with nausea and she has been having diarrhea.
She follows with her family doctor and credit operations specialist for wound care.
A/P:
# Severe hyponatremia - suspect multifactorial due to hypovolemia from poor PO intake and diarrhea, and SIADH component
s/p NSS 1L bolus in ER
s/p 3% NSS per renal
sodium level improved from 115 ... -> 124
Cont to follow Sodium level
IV lasix per renal
TSH 1.24, random cortisol level 11.7
Renal on board
# Severe hypokalemia
resolved after repletion
# New acute systolic CHF
# Acute hypoxic respiratory insufficiency
Placed on 2L NC, weaned to RA, pt NOT on home O2
CXR with Mild acute interstitial and alveolar cardiogenic pulmonary edema. Minimal bilateral pleural effusions.
BNP 13810
Echo: EF 35-40%, Global hypokinesis. Moderate to severe mitral regurgitation.�
s/p IV Lasix
Card on board, timing of cardiac cath TBD
Started ASA, Coreg with holding parameter
await GI clearance for dual antiplatelet therapy if catheterization is to be scheduled as inpatient
# Acute on chronic anemia
iron panel, B12, folate levels acceptable
transfused 1 unit PRBC
s/p EGD eval prior to cardiac cath 10/27: EGD was normal.� Her colonoscopy was in 2017 which showed small adenoma and diverticulosis.� She is due for colonoscopy which can be arranged as OP.� She should complete colonoscopy before we can give
clearance to begin anti-platelet therapy, however the risk of bleeding lesion is low and can begin anti-platelet therapy if cardiology feels patient can not wait until OP colonoscopy is completed.
# Diarrheal illness, likely ABx related
Worsening diarrhea for 2 days
She had been off Laxatives since 09/27/23
C Diff/norovirus/stool Cx negative from admission, repeat C diff again negative
COVID negative
stopped PO PPI, stopped Miralax
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
Was recommended by ID to cont IV antibiotic Ceftriaxone through�11/01/23.
PT OT recc HH
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
started gabapentin 100 mg HS
# Cough, intermittent; likely related to acute CHF
COVID/ Flu/RSV were negative
Tessalon PRN for cough
# Fibromyalgia HX, Stable
Hold Lexapro/SSRI�due to current severe hyponatremia
Added lidocaine patch for shoulder and lower back
# Insomnia
Cont [employer] Ambien PRN
DVT Prophylaxis:�Lovenox SQ
Full code
DW RN
DW Card/GI
Anticipated Discharge: 24 - 48 hours
Subjective/Interval History
-
Date of Service: October 29, 2023
Objective Data
-
Labs:
Laboratory Results
10/29/23
05:07
WBC 13.2 H
Hgb 8.4 L
Hct 23.9 L
Plt Count 321
Sodium 124 L
Potassium 3.9
Chloride 98
Carbon Dioxide 21 L
BUN 16
Creatinine 0.8
Glucose 103 H
Calcium 9.0
Vital Signs:
Vital Signs
Temp Pulse Resp BP Pulse Ox
37.1 C 119 22 118/66 95
10/29/23 03:07 10/29/23 08:09 10/29/23 06:00 10/29/23 08:09 10/29/23 06:00
I&O
10/28/23 10/29/2310/30/24
06:59 06:59 06:59
Intake Total 450 / 450 1200 / 1200
Output Total 675 / 675
Balance 450 / 450 525 / 525
Review of Systems
-
Abdomen/GI: Denies Diarrhea (resolved)
Physical Exam
-
General: Well Developed, Well Nourished, Comfortable and Conversant
Respiratory: Clear to Auscultation and Non Labored Respirations; Negative Wheezes or Accessory Resp Muscle Use
Cardiac: Regular Rhythm and S1/S2
GI: Soft and Nontender
Musculoskeletal: No Edema
Skin: Warm, Dry and Other (R foot with dressing); Negative Rash
Neuro: Awake
Psych: Calm and Intact Judgement/Insight
Data Reviewed
-
Diagnostic Radiology: Image personally visualized and interpreted and Report Reviewed by me
Labs: Labs Reviewed by me
--- NOTE | 2023-10-29 09:30 | PTCARENOTE ---
Pt went into a fib with RVR confirmed with EKG. BP somewhat hypotensive. notified Dr. Tate and Dr. Smith. Amio bolus ordered. Pt educated.
[2023-10-29] MEDS: CORDARONE 103 MG IV (09:59)
[2023-10-29] MEDS: CORDARONE 518 MG IV (10:10)
[2023-10-29] MEDS: LIDOCAINE 4% PATCH 1 PATCH TOPICAL ×2 (10:11→10:12)
--- NOTE | 2023-10-29 10:15 | PTCARENOTE ---
Pt remains in A fib. Amio bolus given and GTT infusing as ordered and per protocol in right PICC. BP improved. placed on 4L to maintain O2 sat greater than 90. HR currently 120s-140. A fib. Pt very anxious. Support provided. Education provided.
--- NOTE | 2023-10-29 12:26 | W.PN.UPDATE ---
Update Note
Progress Note Update
Called back for eval of diarrhea and also antiplatelet clearance pending cath. Will plan for colonoscopy 10/31.
--- NOTE | 2023-10-29 13:41 | W.PN.NEPH.PH ---
Addendum entered and electronically signed by Rosi Vaughan MD 10/29/23 13:48:
unable to use samsca with current hemodynamics
Original Note:
Today's Communication / Plan
-
lasix 20 BID today
Assessment/Plan
-
Assessment:
Severe hyponatremia (roxanne 115)
Severe hypokalemia
hypotension
Diarrheal illness
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
Fibromyalgia HX
HTN not on meds
GERD
Anxiety
Plan:
Recent h/o OM of right foot s/p I&D on abx IV (CTX until 11/01)
arrived with diarrhea, found to have severe hyponatremia with urine studies consistent with hypovolemic hyponatremia.
TSH and cortisol were ok
sodium low at 124 despite lasix
this am Afib with RVR on Amio gtt now
BP remains soft
clinically hypervolemic will cont lasix
may use hyerptonic briefly if repeat na did not improve
maintain FR 40 ounces/day
GI eval in progress for anemia, fe def-on IV fe course, plan C scope Monday
agree with holding SSRI
echo with 35% EF, BNP 21K, new diagnosis of heart failure. [facility] per cards
midodrine on board PRN
-
-
Date of Service: October 29, 2023
CC / HPI / ROS
-
Chief Complaint:
hyponatremia
History of Present Illness:
hyponatremia, sodium down to 124
BP low normal range and tachy , afib this am on amio gtt
no fever
hb better at 8.4
leucocytosis 13.2
wt is up
Review of Systems:
no cp or sob at rest
back on O2
diarrhea better
Labs
-
Labs:
WBC 13.2 10^3/uL (4.8-10.8) H 10/29/23 05:07
RBC 2.60 10^6/uL (4.20-5.40) L 10/29/23 05:07
Hgb 8.4 g/dL (12.0-16.0) L 10/29/23 05:07
Hct 23.9 % (37.0-47.0) L 10/29/23 05:07
Plt Count 321 10^3/uL (130-400) 10/29/23 05:07
Sodium 124 mmol/L (135-145) L 10/29/23 05:07
Potassium 3.9 mmol/L (3.5-5.1) 10/29/23 05:07
Chloride 98 mmol/L (98-107) 10/29/23 05:07
Carbon Dioxide 21 mmol/L (22-30) L 10/29/23 05:07
BUN 16 mg/dl (7-17) 10/29/23 05:07
Creatinine 0.8 mg/dL (0.6-1.0) 10/29/23 05:07
eGFR > 60.00 10/29/23 05:07
Glucose 103 mg/dl (70-99) H 10/29/23 05:07
Calcium 9.0 mg/dl (8.4-10.2) 10/29/23 05:07
Qxs-R-Ihwvjiqpoiu Pept 72070 pg/ml 10/24/23 12:13
Albumin 2.8 g/dl (3.5-5.0) L 10/23/23 19:01
Physical Exam
-
Vital Signs:
Vital Signs
Temp Pulse Resp BP Pulse Ox
97.5 F 105 23 94/82 96
10/29/23 11:25 10/29/23 13:00 10/29/23 13:00 10/29/23 13:00 10/29/23 13:00
Cardiovascular:: Irregular rate and rhythm
Respiratory:: Bilateral: Rales
Lung Excursion:: Normal
Abdomen:: Nontender and Soft
Extremity Edema:: None: Bilateral: (ankle edema)
Marquez Catheter: No
--- NOTE | 2023-10-29 14:13 | W.PN.CARDCBS ---
Today's Communication / Plan
-
Start IV amiodarone for rapid A-fib
No anticoagulation with anemia requiring transfusion
Eventual catheterization when cleared by GI after colonoscopy on 10/31/2023
Impression / Plan
-
PC: Dr. aBiley
Cardiology: None prior to admission
Impression:
Atrial fibrillation 10/29/2023
Admitted with diarrhea and severe hyponatremia 10/23/23
Acute HFrEF, EF 35-40%
Ischemic versus nonischemic cardiomyopathy, suspect the latter
Moderate to severe MR
LBBB/IVCD
Anemia
Recent admission for right foot osteomyelitis 09/20/23 until 09/27/23
Hyperhidrosis
Echo 10/24/23: EF 35-40%, global hypokinesis, mod to sev MR
Plan:
She has gone into rapid atrial fibrillation without any symptoms
Started on IV amiodarone
Unable to give increasing beta-jesse or Cardizem with hypotension
Will attempt to rate control
Would not anticoagulate for now with unclear source of anemia requiring transfusion and low CHADS2 score (1�female).
Cardiac catheterization could be done to an outpatient but patient prefers to have done while in hospital
Await GI clearance to approve dual antiplatelet therapy and colonoscopy is planned for 10/31/2023
Diuretics being managed by nephrology for hyponatremia
Tolerating Coreg although with borderline blood pressure we will hold off on lisinopril/Aldactone
Could consider adding Jardiance or Farxiga but patient might want to limit medications and could potentially worsen hypotension
Likely secondary MR from cardiomyopathy
It may be that left bundle is responsible for LV dysfunction. If so, resynchronization therapy may need to be considered.
Discussed with primary service as well as GI and nephrology via [place] text.
Progress Note - Last Putter Away
Subjective
Date of Service: October 29, 2023
No complaints. Went into atrial fibrillation on telemetry without symptoms. Started on IV amiodarone
Objective
Labs:
10/29/23 05:07
Labs
Hgb 8.4 g/dL (12.0-16.0) L 10/29/23 05:07
Hct 23.9 % (37.0-47.0) L 10/29/23 05:07
Plt Count 321 10^3/uL (130-400) 10/29/23 05:07
Sodium 124 mmol/L (135-145) L 10/29/23 05:07
Potassium 3.9 mmol/L (3.5-5.1) 10/29/23 05:07
BUN 16 mg/dl (7-17) 10/29/23 05:07
Creatinine 0.8 mg/dL (0.6-1.0) 10/29/23 05:07
Glucose 103 mg/dl (70-99) H 10/29/23 05:07
Vital Signs and I&O:
Vital Signs
Temp Pulse Resp BP Pulse Ox
97.5 F 105 23 94/82 96
10/29/23 11:25 10/29/23 13:00 10/29/23 13:00 10/29/23 13:00 10/29/23 13:00
Vital Signs
Temp Pulse Resp BP Pulse Ox
97.5 F 105 23 94/82 96
10/29/23 11:25 10/29/23 13:00 10/29/23 13:00 10/29/23 13:00 10/29/23 13:00
Intake & Output
10/27/23 10/28/23 10/29/23 10/30/23
06:59 06:59 06:59 06:59
Intake Total 540 / 540 450 / 450 1200 / 1200
Output Total 600 / 600 675 / 675
Balance -60 / -60 450 / 450 525 / 525
Physical Exam
Physical Exam
General: Well developed, well nourished in NAD.
Neck: Supple, no JVD, HJR, carotids +2 B/L, no bruits bilaterally.
Heart: Non displaced PMI, irregular, tacky, no murmurs, No S3, S4, no rubs.
Lungs: Clear to auscultation bilaterally, no wheeze, rhonchi, rubs bilaterally,
normal expiratory phase.
Abdomen: Normal bowel sounds, soft, non-tender, non-distended.
Extremities: No clubbing, cyanosis or edema bilaterally.
Neuro: Grossly nonfocal, awake, alert and oriented x3.
[2023-10-29] MEDS: LASIX 20 MG IV (14:32)
[2023-10-29] MEDS: ULTRAM 25 MG PO ×2 (14:36→20:58)
[2023-10-29] MEDS: FERRLECIT 110 MG IV (14:36)
[2023-10-29] MEDS: ROCEPHIN 2000 MG IV (15:47)
[2023-10-29] MEDS: STERILE WATER FOR INJECTION 20 ML IV (15:47)
[2023-10-29] MEDS: LOVENOX 40 MG SC (17:08)
--- NOTE | 2023-10-29 18:20 | PTCARENOTE ---
Pt complaining of same tingling feeling after receiving Rocephin, dissipated in minutes. Pt also complained of pain in her left neck and shoulder, she thinks she slept weird on it. Notified Emili Harrington pad ordered.
[2023-10-29] MEDS: NEURONTIN 100 MG PO (20:59)
[2023-10-29] MEDS: AMBIEN 5 MG PO (20:59)
[2023-10-29 21:32] LABS: Sodium 123 mmol/L (135-145)
--- NOTE | 2023-10-29 22:06 | PTCARENOTE ---
nsr confirmed w/ ekg. dairy husbandman notified. will monitor.
[2023-10-29] MEDS: SAMSCA 7.5 MG PO (22:44)
[2023-10-29] MEDS: TUMS 2 TABLET PO (22:45)
[2023-10-30] VITALS (13 sets, daily range): BP systolic 106–131; BP diastolic 53–77; PULSE 93; O2SAT 95; BMI 25.6
[2023-10-30] MEDS: TYLENOL 650 MG PO ×4 (05:19→22:34)
[2023-10-30 05:30] LABS: Hematocrit 25.2 % (37.0-47.0); Hemoglobin 8.9 g/dL (12.0-16.0); Mean Corp Hgb Conc. 35.3 g/dL (33.0-37.0); Mean Corpuscular Volume 93.3 fL (81.0-99.0); Mean Platelet Volume 9.3 fL (7.4-10.4); Platelet Count 366 10^3/uL (130-400); Red Cell Dist. Width 13.1 % (11.5-14.5); White Blood Cell Count 13.5 10^3/uL (4.8-10.8)
[2023-10-30 05:58] LABS: Blood Urea Nitrogen 17 mg/dl (7-17); Calcium 9.2 mg/dl (8.4-10.2); Carbon Dioxide 23 mmol/L (22-30); Chloride 97 mmol/L (98-107); Estimated Creatinine Clearance 62 ml/min; Glucose 109 mg/dl (70-99); Magnesium 1.8 mg/dl (1.6-2.3); Sodium 123 mmol/L (135-145); eGFR > 60.00
[2023-10-30] MEDS: COREG 3.125 MG PO ×2 (08:06→20:41)
[2023-10-30] MEDS: FLORASTOR 250 MG PO ×2 (08:06→20:41)
[2023-10-30] MEDS: LOW STRENGTH ASPIRIN 81 MG PO (08:06)
[2023-10-30] MEDS: VISBIOME 1 CAP PO (08:08)
[2023-10-30] MEDS: TESSALON PERLES 200 MG PO ×3 (09:11→21:24)
[2023-10-30] MEDS: LIDOCAINE 4% PATCH 1 PATCH TOPICAL ×2 (09:12)
--- NOTE | 2023-10-30 09:14 | W.PN.GI.CBS2 ---
Addendum entered and electronically signed by Rosalio Bowen MD 10/30/23 19:50:
I saw and examined the patient.
The PA's note was reviewed and I agree with the note.
Comment:
Will plan for colonoscopy tomorrow pending Na. Will follow.
Original Note:
Today's Communication / Plan
-
Diarrhea improved. Stool studies negative.
Plan for colonoscopy tomorrow.
Assessment / Plan
-
58 year old female with fibromyalgia, GERD and colon polyps who recently admitted for osteomyelitis of the right foot, re-admitted since 10/23/23 for hyponatremia. With new findings of moderate to severe MR with EF 35-40% Cardiology planning for
cardiac catheterization to rule out underlying CAD. GI has been consulted for anemia.
At discharge on 09/27/23, most recent Hgb was 9.4. Today, 10/27/23, Hgb is 7.6. Patient denies any scooter bleeding; no black/bloody stools or hematemesis as noted previously. She takes omeprazole 20mg daily for reflux, which she states works well to
control her GERD. She does admit to the recent heavy NSAID use, and admits to drinking 8 alcoholic drinks/week (beer or wine). She had an endoscopy in [address] Bateman which showed a Schatzki ring (which was dilated with balloon dilation to 20mm)
and an irregular Z line; esophageal biopsies showed chronic esophagitis, negative for Stover's esophagus. She had colonoscopy in 2018 which showed diverticulosis and a small adenoma in the ascending colon. Diarrhea has improved since coming to the
hospital and stool studies were negative (C diff, salmonella, shigella, aeromonas, plesiomonas, campylobacter, shiga toxin, norovirus all negative). She does complain of dysphagia and hoarseness, which she states has been a chronic issue for her.
The dysphagia did not improve after her last EGD with dilation in 2021. She states she saw ENT for this as well, was scoped, reporteldy negative. She is a non-smoker. There is no family history of GI malignancies, IBD or celiac disease.
Yesterday, 10/29/23, pt developed rapid atrial fibrillation and was started on amiodarone by Cardiology. No anticoagulation started.
IMPRESSION / PLAN:
Anemia, normocytic
-Hgb 8.9, s/p transfusion 1 unit PRBCs
-Cardiology requesting anemia workup prior to cardiac catheterization
-s/p EGD on 10/27/23 which was normal
-will plan for colonoscopy tomorrow
-continue to trend Hgb
-clear liquid diet today
Diarrhea
-improving; no diarrhea for the past 2 days.
-negative stool studies, including Cdiff
Hyponatremia
-Nephrology following
Other medical issues managed as per Cardiology, Nephrology, Hospitalist.
We will follow.
Subjective
Subjective
Date of Service: October 30, 2023
Diarrhea has resolved since Monday.
No abdominal pain, n/v, fever or chills.
Objective
Data Reviewed
Laboratory Data:
Laboratory Results
10/30/23 05:08
10/30/23 05:08
Laboratory Results
Magnesium 1.8 mg/dl (1.6-2.3) 10/30/23 05:08
Total Bilirubin 0.8 mg/dl (0.2-1.3) 10/23/23 19:01
AST 24 U/L (14-36) 10/23/23 19:01
ALT 58 U/L (0-35) H 10/23/23 19:01
Alkaline Phosphatase 355 U/L (38-126) H 10/23/23 19:01
Vital Signs and I&O:
Vital Signs
Temp Pulse Resp BP Pulse Ox
98.7 F 103 33 113/53 94
10/30/23 04:27 10/30/23 08:00 10/30/23 08:00 10/30/23 08:00 10/30/23 08:00
I&O
10/29/23 10/30/23 10/31/23
06:59 06:59 06:59
Intake Total 1200 / 1200
Output Total 675 / 675
Balance 525 / 525
Physical Exam
Physical Exam
Cardiology: Normal Sinus Rhythm
Pulmonary: Clear
GI: Soft, Non Distended, Non Tender and Normal Bowel Sounds
--- NOTE | 2023-10-30 11:11 | W.PN.CARDCBS ---
Today's Communication / Plan
-
Change IV amiodarone to p.o.
Stable called allergy status for colonoscopy on 10/31 and for catheterization on 11/01 if GI approves dual antiplatelet therapy
Impression / Plan
-
PC: Dr. Bailey
Cardiology: None prior to admission
Impression:
Atrial fibrillation 10/29/2023, spontaneously converted to sinus rhythm
Admitted with diarrhea and severe hyponatremia 10/23/23
Acute HFrEF, EF 35-40%
Ischemic versus nonischemic cardiomyopathy, suspect the latter
Moderate to severe MR
LBBB/IVCD
Anemia
Recent admission for right foot osteomyelitis 09/20/23 until 09/27/23
Hyperhidrosis
Echo 10/24/23: EF 35-40%, global hypokinesis, mod to sev MR
Plan:
She remains in sinus rhythm
We will discontinue IV amiodarone
Will change to oral amiodarone at least temporarily although not a great long-term medication at age 58
Beta-jesse or calcium channel jesse therapy may be problematic given hypotension requiring midodrine
Would not anticoagulate for now with unclear source of anemia requiring transfusion and low CHADS2 score (1�female).
Cardiac catheterization could be done to an outpatient but patient prefers to have done while in hospital
Await GI clearance to approve dual antiplatelet therapy and colonoscopy is planned for 10/31/2023
Will plan on cardiac catheterization on 11/01/2023 if okay with GI to get dual antiplatelet therapy
Diuretics being managed by nephrology for hyponatremia
Tolerating Coreg although with borderline blood pressure we will hold off on lisinopril/Aldactone
Could consider adding Jardiance or Farxiga but patient might want to limit medications and could potentially worsen hypotension
Likely secondary MR from cardiomyopathy
It may be that left bundle is responsible for LV dysfunction. If so, resynchronization therapy may need to be considered.
Discussed with GI
Stable cardiology status for colonoscopy on 10/31/2023
Progress Note - Business Analysis Analyst
Subjective
Date of Service: October 30, 2023
No complaints. in sinus rhythm
Objective
Labs:
10/30/23 05:08
10/30/23 05:08
Labs
Hgb 8.9 g/dL (12.0-16.0) L 10/30/23 05:08
Hct 25.2 % (37.0-47.0) L 10/30/23 05:08
Plt Count 366 10^3/uL (130-400) 10/30/23 05:08
Sodium 123 mmol/L (135-145) L 10/30/23 05:08
Potassium 4.0 mmol/L (3.5-5.1) 10/30/23 05:08
BUN 17 mg/dl (7-17) 10/30/23 05:08
Creatinine 0.8 mg/dL (0.6-1.0) 10/30/23 05:08
Glucose 109 mg/dl (70-99) H 10/30/23 05:08
Vital Signs and I&O:
Vital Signs
Temp Pulse Resp BP Pulse Ox
97.7 F 95 25 111/72 94
10/30/23 07:25 10/30/23 10:00 10/30/23 10:00 10/30/23 10:00 10/30/23 10:39
Vital Signs
Temp Pulse Resp BP Pulse Ox
97.7 F 95 25 111/72 94
10/30/23 07:25 10/30/23 10:00 10/30/23 10:00 10/30/23 10:00 10/30/23 10:39
Intake & Output
10/28/23 10/29/23 10/30/23 10/31/23
06:59 06:59 06:59 06:59
Intake Total 450 / 450 1200 / 1200 480 / 480
Output Total 675 / 675
Balance 450 / 450 525 / 525 480 / 480
Physical Exam
Physical Exam
General: Well developed, well nourished in NAD.
Neck: Supple, no JVD, HJR, carotids +2 B/L, no bruits bilaterally.
Heart: Non displaced PMI, RRR, no murmurs, No S3, S4, no rubs.
Lungs: Clear to auscultation bilaterally, no wheeze, rhonchi, rubs bilaterally,
normal expiratory phase.
Extremities: No clubbing, cyanosis or edema bilaterally.
Neuro: Grossly nonfocal, awake, alert and oriented x3.
--- NOTE | 2023-10-30 11:19 | PTCARENOTE ---
Patient complaining of chronic lower back pain. Lidocaine patch applied to lower back as ordered and medicated with tylenol. These measures made pain more tolerable. Pain is now 2/10 from 01/09. Patient remains on amioderone drip at
0.5mg/16.6mls/hr. SR with BB, heart rate in the 90's. MD made aware.
[2023-10-30] MEDS: PACERONE 200 MG PO ×2 (12:09→20:41)
--- NOTE | 2023-10-30 13:18 | W.PN.HOSP.TC ---
Today's Communication/Plan
-
Monitor vital signs see plan
Now on p.o. amnio
Colonoscopy tomorrow
Monitor hemoglobin
Monitor sodium
Assessment / Plan
Assessment / Plan
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 She was admitted Sep 2023 for foot infection, underwent incision and drainage and had been on IV antibiotic Ceftriaxone.
ID called in for Flagyl which made her ill with nausea and she has been having diarrhea.
She follows with her family doctor and rn endocrinology for wound care.
A/P:
# Severe hyponatremia - suspect multifactorial due to hypovolemia from poor PO intake and diarrhea, and SIADH component
s/p NSS 1L bolus in ER
s/p 3% NSS per renal
Monitor sodium. Samsca given 10/29.
TSH 1.24, random cortisol level 11.7
Renal on board
# Severe hypokalemia
resolved after repletion
# New acute systolic CHF
# Acute hypoxic respiratory insufficiency
Placed on 2L NC, weaned to RA, pt NOT on home O2
CXR with Mild acute interstitial and alveolar cardiogenic pulmonary edema. Minimal bilateral pleural effusions.
BNP 23766
Echo: EF 35-40%, Global hypokinesis. Moderate to severe mitral regurgitation.�
s/p IV Lasix
Card on board, timing of cardiac cath TBD
Started ASA, Coreg with holding parameter
await GI clearance for dual antiplatelet therapy if catheterization is to be scheduled as inpatient. Plan for colonoscopy 10/31
Atrial fibrillation 10/29, spontaneously converted to normal sinus rhythm
now on PO amio
# Acute on chronic anemia
iron panel, B12, folate levels acceptable
transfused 1 unit PRBC
s/p EGD eval prior to cardiac cath 10/27: EGD was normal.� Her colonoscopy was in 2017 which showed small adenoma and diverticulosis.� She is due for colonoscopy which can be arranged as OP.� She should complete colonoscopy before we can give
clearance to begin anti-platelet therapy, however the risk of bleeding lesion is low and can begin anti-platelet therapy if cardiology feels patient can not wait until OP colonoscopy is completed.
# Diarrheal illness, likely ABx related
now slowly improving
She had been off Laxatives since 09/27/23
C Diff/norovirus/stool Cx negative from admission, repeat C diff again negative
COVID negative
stopped PO PPI, stopped Miralax
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
Was recommended by ID to cont IV antibiotic Ceftriaxone through�11/01/23.
PT OT recc HH
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
started gabapentin 100 mg HS
# Cough, intermittent; likely related to acute CHF
COVID/ Flu/RSV were negative
Tessalon PRN for cough
# Fibromyalgia HX, Stable
Hold Lexapro/SSRI�due to current severe hyponatremia
Added lidocaine patch for shoulder and lower back
# Insomnia
Cont KIDNEY TRIMMER Ambien PRN
DVT Prophylaxis:�Lovenox SQ
Full code
General: Well Developed, Well Nourished, Comfortable and Conversant
Respiratory: Clear to Auscultation and Non Labored Respirations; Negative Wheezes or Accessory Resp Muscle Use
Cardiac: Regular Rhythm and S1/S2
GI: Soft and Nontender
Musculoskeletal: No Edema
Skin: Warm, Dry and Other (R foot with dressing); Negative Rash
Neuro: Awake
Psych: Calm and Intact Judgement/Insight
Anticipated Discharge: > 48 hours
Subjective/Interval History
-
Date of Service: October 30, 2023
denies pain
Objective Data
-
Labs:
Laboratory Results
10/30/23
05:08
WBC 13.5 H
Hgb 8.9 L
Hct 25.2 L
Plt Count 366
Sodium 123 L
Potassium 4.0
Chloride 97 L
Carbon Dioxide 23
BUN 17
Creatinine 0.8
Glucose 109 H
Calcium 9.2
Vital Signs:
Vital Signs
Temp Pulse Resp BP Pulse Ox
97.5 F 103 25 131/71 94
10/30/23 11:25 10/30/23 12:09 10/30/23 10:00 10/30/23 12:09 10/30/23 10:39
I&O
10/29/23 10/30/23 10/31/23
06:59 06:59 06:59
Intake Total 1200 / 1200 480 / 480
Output Total 675 / 675
Balance 525 / 525 480 / 480
--- NOTE | 2023-10-30 14:00 | PTCARENOTE ---
Amiodarone drip discontinued. Patient started on po amiodarone.
[2023-10-30] MEDS: FERRLECIT 110 MG IV (14:15)
[2023-10-30] MEDS: BENADRYL 25 MG PO (14:15)
--- NOTE | 2023-10-30 14:32 | W.PN.NEPH.PH ---
Today's Communication / Plan
-
3%
Assessment/Plan
-
Assessment:
Severe hyponatremia (roxanne 115)
Severe hypokalemia
hypotension
Diarrheal illness
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
Fibromyalgia HX
HTN not on meds
GERD
Anxiety
Plan:
-3%NaCl
-follow BMP
-could use NaCl tabs in am
-
-
Date of Service: October 30, 2023
CC / HPI / ROS
-
Chief Complaint:
hyponatremia
History of Present Illness:
hyponatremia, sodium down to 123
BP low normal
no fever
hgb stable
Review of Systems:
no cp or sob at rest
back on O2
diarrhea better
Labs
-
Labs:
WBC 13.5 10^3/uL (4.8-10.8) H 10/30/23 05:08
RBC 2.70 10^6/uL (4.20-5.40) L 10/30/23 05:08
Hgb 8.9 g/dL (12.0-16.0) L 10/30/23 05:08
Hct 25.2 % (37.0-47.0) L 10/30/23 05:08
Plt Count 366 10^3/uL (130-400) 10/30/23 05:08
Sodium 123 mmol/L (135-145) L 10/30/23 05:08
Potassium 4.0 mmol/L (3.5-5.1) 10/30/23 05:08
Chloride 97 mmol/L (98-107) L 10/30/23 05:08
Carbon Dioxide 23 mmol/L (22-30) 10/30/23 05:08
BUN 17 mg/dl (7-17) 10/30/23 05:08
Creatinine 0.8 mg/dL (0.6-1.0) 10/30/23 05:08
eGFR > 60.00 10/30/23 05:08
Glucose 109 mg/dl (70-99) H 10/30/23 05:08
Calcium 9.2 mg/dl (8.4-10.2) 10/30/23 05:08
Vgh-J-Krkfuvderal Pept 58197 pg/ml 10/24/23 12:13
Albumin 2.8 g/dl (3.5-5.0) L 10/23/23 19:01
Physical Exam
-
Vital Signs:
Vital Signs
Temp Pulse Resp BP Pulse Ox
97.5 F 103 26 131/71 98
10/30/23 11:25 10/30/23 12:09 10/30/23 12:00 10/30/23 12:09 10/30/23 12:00
Cardiovascular:: Regular rate and rhythm
Respiratory:: Bilateral: CTA
Lung Excursion:: Normal
Abdomen:: Nontender and Soft
Bowel Sounds:: Normal
Extremity Edema:: None: Bilateral:
[2023-10-30] MEDS: SODIUM CHLORIDE 3% 250 IV (15:13)
[2023-10-30] MEDS: STERILE WATER FOR INJECTION 20 ML IV (16:28)
[2023-10-30] MEDS: ROCEPHIN 2000 MG IV (16:28)
[2023-10-30] MEDS: FLUSH (NSS) 1 FLUSH IV (16:29)
[2023-10-30] MEDS: LOVENOX 40 MG SC (17:00)
[2023-10-30] MEDS: NULYTELY SOLUTION 4 LITERS PO (18:33)
[2023-10-30 20:11] LABS: Blood Urea Nitrogen 15 mg/dl (7-17); Calcium 9.1 mg/dl (8.4-10.2); Carbon Dioxide 23 mmol/L (22-30); Chloride 96 mmol/L (98-107); Estimated Creatinine Clearance 62 ml/min; Glucose 116 mg/dl (70-99); Potassium 3.4 mmol/L (3.5-5.1); Sodium 127 mmol/L (135-145); eGFR > 60.00
[2023-10-30] MEDS: ULTRAM 25 MG PO (20:54)
[2023-10-30] MEDS: KCL 20 MEQ PO (21:24)
[2023-10-30] MEDS: NEURONTIN 100 MG PO (22:34)
--- NOTE | 2023-10-30 22:58 | PTCARENOTE ---
bmp results reported to nephrology- order to replace potassium and continue 3%saline as ordered. - see mar- pt having difficulty with bowel prep- she finished half and threw up and will not take any more prep until morning. reviewed possibility of
colonoscopy being delayed due to lack of prep. ax3 sinus tach. afebrile bp wnl
[2023-10-31] VITALS (14 sets, daily range): BP systolic 16–128; BP diastolic 69–85
--- NOTE | 2023-10-31 00:09 | PTCARENOTE ---
pt requires frequent care- rings bel several times an hour for different things . she is tearful. support given
--- NOTE | 2023-10-31 05:21 | PTCARENOTE ---
pt up and restarting prep complained of pain behind her left knee last night which feels better this am-
[2023-10-31 05:29] LABS: % Basophils 0.4 % (0-2); % Eosinophils 0.2 % (0-6); % Immature Granulocytes 0.8 % (0-0.5); % Lymphocytes 5.8 % (20.5-51.1); % Monocytes 2.9 % (1.7-9.3); % Neutrophils 89.9 % (42.2-75.2); Absolute Basophils 0.1 10^3/uL (0-0.2); Absolute Immature Granulocytes 0.1 10^3/uL (0-0.05); Absolute Lymphocytes 0.7 10^3/uL (1.2-3.4); Absolute Monocytes 0.4 10^3/uL (0.1-0.6); Absolute Neutrophils 11.2 10^3/uL (1.4-6.5); Hematocrit 23.6 % (37.0-47.0); Hemoglobin 8.3 g/dL (12.0-16.0); Mean Corp Hgb Conc. 35.2 g/dL (33.0-37.0); Mean Corpuscular Hgb 32.4 pg (27.0-31.0); Mean Corpuscular Volume 92.2 fL (81.0-99.0); Mean Platelet Volume 9.1 fL (7.4-10.4); Nucleated Red Blood Cells % 0 %; Platelet Count 349 10^3/uL (130-400); Red Blood Cell Count 2.56 10^6/uL (4.20-5.40); Red Cell Dist. Width 13.2 % (11.5-14.5); White Blood Cell Count 12.5 10^3/uL (4.8-10.8)
[2023-10-31 06:08] LABS: Blood Urea Nitrogen 13 mg/dl (7-17); Calcium 9.1 mg/dl (8.4-10.2); Carbon Dioxide 22 mmol/L (22-30); Chloride 100 mmol/L (98-107); Estimated Creatinine Clearance 62 ml/min; Glucose 108 mg/dl (70-99); Sodium 131 mmol/L (135-145); eGFR > 60.00
[2023-10-31] MEDS: FLORASTOR 250 MG PO ×2 (08:14→21:05)
[2023-10-31] MEDS: VISBIOME 1 CAP PO (08:15)
[2023-10-31] MEDS: PACERONE 200 MG PO ×2 (08:15→21:05)
[2023-10-31] MEDS: COREG 3.125 MG PO ×2 (08:15→12:20)
[2023-10-31] MEDS: LOW STRENGTH ASPIRIN 81 MG PO (08:15)
[2023-10-31] MEDS: TYLENOL 650 MG PO ×2 (08:25→21:06)
[2023-10-31] MEDS: BENADRYL 12.5 MG IV (08:57)
--- NOTE | 2023-10-31 11:02 | W.PN.NEPH.PH ---
Today's Communication / Plan
-
salt
Assessment/Plan
-
Assessment:
Severe hyponatremia (roxanne 115)
Severe hypokalemia
hypotension
Diarrheal illness
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
Fibromyalgia HX
HTN not on meds
GERD
Anxiety
Plan:
-follow BMP
-use NaCl tabs 500mg BID
-
-
Date of Service: October 31, 2023
CC / HPI / ROS
-
Chief Complaint:
hyponatremia
History of Present Illness:
hyponatremia, sodium up to 131 with 3%NaCl
BP stable
no fever
hgb stable
Review of Systems:
no cp or sob at rest
back on O2
Labs
-
Labs:
WBC 12.5 10^3/uL (4.8-10.8) H 10/31/23 05:01
RBC 2.56 10^6/uL (4.20-5.40) L 10/31/23 05:01
Hgb 8.3 g/dL (12.0-16.0) L 10/31/23 05:01
Hct 23.6 % (37.0-47.0) L 10/31/23 05:01
Plt Count 349 10^3/uL (130-400) 10/31/23 05:01
Sodium 131 mmol/L (135-145) L 10/31/23 05:01
Potassium 4.0 mmol/L (3.5-5.1) 10/31/23 05:01
Chloride 100 mmol/L (98-107) 10/31/23 05:01
Carbon Dioxide 22 mmol/L (22-30) 10/31/23 05:01
BUN 13 mg/dl (7-17) 10/31/23 05:01
Creatinine 0.8 mg/dL (0.6-1.0) 10/31/23 05:01
eGFR > 60.00 10/31/23 05:01
Glucose 108 mg/dl (70-99) H 10/31/23 05:01
Calcium 9.1 mg/dl (8.4-10.2) 10/31/23 05:01
Lcm-T-Wnuczeiwpcv Pept 26547 pg/ml 10/24/23 12:13
Albumin 2.8 g/dl (3.5-5.0) L 10/23/23 19:01
Physical Exam
-
Vital Signs:
Vital Signs
Temp Pulse Resp BP Pulse Ox
97.4 F 105 36 124/76 98
10/31/23 07:14 10/31/23 08:06 10/31/23 08:06 10/31/23 08:06 10/31/23 08:04
Cardiovascular:: Regular rate and rhythm
Respiratory:: Bilateral: Coarse
Lung Excursion:: Normal
Abdomen:: Nontender and Soft
Bowel Sounds:: Normal
Extremity Edema:: None: Bilateral:
--- NOTE | 2023-10-31 11:10 | CON.ID ---
Consultation
-
Date/Time Consultation Requested: October 31, 2023 1103
Date/Time Consultation Performed: October 31, 2023 1111
Requesting Provider: Dr. Bran Cason
Performing Provider: Dr. Olga Palma
Reason for Consultation: Rash, on ceftriaxone
Chief Complaint / Past History
Chief Complaint
Itchy Rash
History of Present Illness
58-year-old female well-known to me with history of hyperhidrosis and receives Botox injection to axilla and plantar feet, who was recently hospitalized from September 20 to September 27 with right foot abscess/sesamoid osteomyelitis status post I and
D and biopsy. OR cultures grew multiple organisms. She was discharged on IV ceftriaxone planning on 6 weeks through November 01. The OR culture subsequently also came back positive for anaerobes. Oral metronidazole was added as an outpatient.
However, while on oral metronidazole, patient had severe nausea and no appetite with very poor intake. Symptoms did not improve with Zofran. She had follow-up with me in the office which I discontinued the metronidazole on October 19. She
continued to feel poorly very weak and dizzy. On October 23, visiting nurse noted patient was hypotensive. She was sent to the ER. Sodium was 115 and she was hypokalemic. She was hypotensive and responded to IV fluids. Patient noted to
be hypoxic and chest x-ray showed pulmonary edema. Echocardiogram showed EF of 35 to 40%, and severe mitral regurgitation. Patient also noted to be anemic. She had episode of atrial fibrillation and was started on amiodarone. Patient is to have
colonoscopy today and then eventual cardiac catheterization. She is still on the ceftriaxone. However patient reports pruritic rash especially on her abdomen extending to the back. She noted mild rash since last week on Monday. The rash has
extended.
Past History
Additional Past Medical History:
Hypertension
Anxiety/depression
Fibromyalgia
Hyperhidrosis -> hx regular botox axillae and plantar feet
Botox injection site abscess/sesamoid osteo right foot s/p I+D and abx
Allergy History:
metronidazole Allergy (Verified 10/23/23 20:52)
Severe nausea
Medications Reviewed: Yes
Current Antibiotics:
Ceftriaxone 2gIV q24 day 41
Social History
Tobacco: Non-Smoker
Alcohol: None
Drug: None
Personal:
Family History
Family History: Not Pertinent
Review of Systems
Review of Systems
General: Other (Appetite improved)
HEENT: Negative Sinus Problems, Headache or Pharyngitis
Cardiovascular: Negative Chest Pain
Respiratory: Dyspnea; Negative Sputum Production
Gasteroenterology: Other (diarrhea resolved); Negative Nausea or Vomiting
Genital / Urological: Negative Dysuria or Flank Pain
Endocrine: Weakness
Skin / Hair / Nails: Rash
Neurological: Negative Headache or Dizziness
All systems: All other systems were reviewed and were negative
Vital Signs
Temp Pulse Resp BP Pulse Ox
97.4 F 105 36 124/76 98
10/31/23 07:14 10/31/23 08:06 10/31/23 08:06 10/31/23 08:06 10/31/23 08:04
Physical Exam
Physical Exam
Constitutional: Non-toxic
Eyes: No Conjunctival Hemorrhage and Sclera Anicteric
Cardiovascular: Regular Rate and S1/S2
Pulmonary: Rales (bases)
Gastrointestinal: Soft, Non Tender, Non Distended and Normal Bowel Sounds
Genito-Urinary: Negative Marquez or CVA Tenderness
Extremities: Edema (2+ BLE)
Skin: Rash (maculopapular rash lower half of abdomen to lower back, rash on nape, right foot)
Wound: Other (Right plantar incision dry, closed, no erythema/induration)
Neurological: AO x 3
Lines: PICC
Lab / Diagnostic Study Results
10/31/23 05:01
10/31/23 05:01
Abs Immat Gran (auto) 0.1 10^3/uL (0-0.05) H 10/31/23 05:01
Absolute Neuts (auto) 11.2 10^3/uL (1.4-6.5) H 10/31/23 05:01
Absolute Lymphs (auto) 0.7 10^3/uL (1.2-3.4) L 10/31/23 05:01
Absolute Monos (auto) 0.4 10^3/uL (0.1-0.6) 10/31/23 05:01
Absolute Basos (auto) 0.1 10^3/uL (0-0.2) 10/31/23 05:01
Immature Gran % 0.8 % (0-0.5) H 10/31/23 05:01
Neutrophils % 89.9 % (42.2-75.2) H 10/31/23 05:01
Lymphocytes % 5.8 % (20.5-51.1) L 10/31/23 05:01
Monocytes % 2.9 % (1.7-9.3) 10/31/23 05:01
Eosinophils % 0.2 % (0-6) 10/31/23 05:01
Basophils % 0.4 % (0-2) 10/31/23 05:01
Microbiology Results
Micro:
10/28/23 11:04 C. difficile GDH Antigen & Toxins - Final
Feces/Stool Negative for toxigenic C.difficile
10/24/23 10:04 Salmonella/Shigella Culture - Final
Feces/Stool No Salmonella, Shigella, Aeromonas or Plesiomonas species
isolated.
Campylobacter Culture - Final
No Campylobacter species isolated.
Shiga Toxin Test - Final
No E. coli Shiga Toxin 1 or 2 detected.
10/25/23 11:26 Respiratory Syncytial Virus Culture - Final
Nasal Swab Negative for Respiratory Syncytial Virus.
A false negative result may be obtained with a specimen
collected early in the acute phase. If symptoms persist, a
new specimen should be tested.
10/25/23 11:26 Influenza Types A & B ([facility]) - Final
Nasal Swab Negative for Influenza A & B, NAAT
Negative results must be combined with clinical observations
and patient history.
Nucleic Acid Amplification test (NAAT)performed on the
[employer] platform.
10/23/23 23:51 MRSA Screen - Final
Nose No Methicillin Resistant Staphylococcus aureus isolated.
10/24/23 10:04 - Final
Feces/Stool Negative for Norovirus GI and GII.
10/24/23 10:04 C. difficile GDH Antigen & Toxins - Final
Feces/Stool Negative for toxigenic C.difficile
Assessment / Plan
# Rash
- Currently on day 41 of 42 ceftriaxone.
- Unlikely due to ceftriaxone.
-However, dc abx and observe.
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
�� �- 09/22 s/p� OR I+D of abscess
- Can dc further ceftriaxone (day 41 42)
# New finding of cardiomyopathy, severe MR
- For cardiac cath per cardiology.
# Severe hyponatremia improving.
--- NOTE | 2023-10-31 11:22 | PTCARENOTE ---
Patient's rash is getting worse today. Rash is all over her abdomen, back and into her groin area. Rash is red and rashed and very itchy. MD notified. Order obtained for benaryl. ID reconsulted. Pharmacy notified as well.
--- NOTE | 2023-10-31 11:37 | W.PN.CARDCBS ---
Today's Communication / Plan
-
Hold furosemide for now, may be responsible for rash
Continue amiodarone, rash preceded amiodarone initiation
Uptitrate carvedilol
Would like to add losartan but until etiology of rash is resolved will hold off
Cardiac catheterization in a.m.
Impression / Plan
-
PC: Dr. Bailey
Cardiology: None prior to admission
Impression:
Atrial fibrillation 10/29/2023, spontaneously converted to sinus rhythm
Admitted with diarrhea and severe hyponatremia 10/23/23
Acute HFrEF, EF 35-40%
Ischemic versus nonischemic cardiomyopathy, suspect the latter
Moderate to severe MR
LBBB/IVCD
Anemia
Recent admission for right foot osteomyelitis 09/20/23 until 09/27/23
Hyperhidrosis
Echo 10/24/23: EF 35-40%, global hypokinesis, mod to sev MR
Plan:
Cardiomyopathy: Suspect nonischemic but cardiac catheterization indicated
Could relate to left bundle branch block
Could relate to mitral regurgitation but I am skeptical, more likely MR is the results of LV dysfunction
If cardiac catheterization does not show CAD, would consider cardiac MRI to exclude inflammatory causes of cardiomyopathy
Uptitrate carvedilol as blood pressure is better
Would add ARB once rash has resolved, uptitrate GDMT as possible
Mitral regurgitation: Stable
Paroxysmal atrial fibrillation: In sinus rhythm on amiodarone, high threshold for anticoagulation at present given anemia and relatively low cardioembolic risk
Rash: Per primary service
Anemia: Await colonoscopy
Hyponatremia/volume: Per nephrology
Progress Note - Reconsignment Clerk
Subjective
Date of Service: October 31, 2023:
Her major complaint is rash.
Patient for colonoscopy
medications: Subcu Lovenox 40 a day, carvedilol 3.125 twice daily, aspirin 81 mg a day, amiodarone 200 mg twice daily
PMH/PSH/SH/FH: Reviewed
ROS negative except as above
124/76, pulse still around 100, resp rate 36, sats 98%, weight is 65.6 kg, overall stable
Hemoglobin 8.3 sodium 131, potassium 4, CO2 22, BUN and creatinine 13 and 0.8
ECG October 29, atrial fib, left bundle branch block
proBNP was 21,600 on October 24, troponin never checked
Objective
Labs:
10/31/23 05:01
10/31/23 05:01
Labs
Hgb 8.3 g/dL (12.0-16.0) L 10/31/23 05:01
Hct 23.6 % (37.0-47.0) L 10/31/23 05:01
Plt Count 349 10^3/uL (130-400) 10/31/23 05:01
Sodium 131 mmol/L (135-145) L 10/31/23 05:01
Potassium 4.0 mmol/L (3.5-5.1) 10/31/23 05:01
BUN 13 mg/dl (7-17) 10/31/23 05:01
Creatinine 0.8 mg/dL (0.6-1.0) 10/31/23 05:01
Glucose 108 mg/dl (70-99) H 10/31/23 05:01
Vital Signs and I&O:
Vital Signs
Temp Pulse Resp BP Pulse Ox
36.3 C 105 36 124/76 98
10/31/23 07:14 10/31/23 08:06 10/31/23 08:06 10/31/23 08:06 10/31/23 08:04
Vital Signs
Temp Pulse Resp BP Pulse Ox
36.3 C 105 36 124/76 98
10/31/23 07:14 10/31/23 08:06 10/31/23 08:06 10/31/23 08:06 10/31/23 08:04
Intake & Output
10/29/23 10/30/23 10/31/23 11/01/23
07:59 07:59 07:59 07:59
Intake Total 1200 / 1200 950 / 950
Output Total 675 / 675
Balance 525 / 525 950 / 950
Physical Exam
Physical Exam
Appears uncomfortable related to colonoscopy prep and related to rash
Head neck exam unremarkable
Skin: Macular rash over trunk
Lungs clear, relatively tachypneic
Cardiac mitral regurgitation murmur
Abdomen benign
Extremities without edema
[2023-10-31] MEDS: SODIUM CHLORIDE 0.5 GRAM PO ×2 (12:18→21:05)
[2023-10-31] MEDS: LIDOCAINE 4% PATCH TOPICAL ×2 (13:44)
--- NOTE | 2023-10-31 14:24 | W.PN.HOSP.TC ---
Today's Communication/Plan
-
Monitor vital signs and see plan
Monitor rash
Colonoscopy today
Monitor sodium
Monitor off antibiotic
Assessment / Plan
Assessment / Plan
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 She was admitted Sep 2023 for foot infection, underwent incision and drainage and had been on IV antibiotic Ceftriaxone.
ID called in for Flagyl which made her ill with nausea and she has been having diarrhea.
She follows with her family doctor and party plan sales unit advisor for wound care.
A/P:
# Severe hyponatremia - suspect multifactorial due to hypovolemia from poor PO intake and diarrhea, and SIADH component
s/p NSS 1L bolus in ER
s/p 3% NSS per renal
Monitor sodium. Samsca given 10/29.
TSH 1.24, random cortisol level 11.7
Renal on board
# Severe hypokalemia
resolved after repletion
# New acute systolic CHF
# Acute hypoxic respiratory insufficiency
Placed on 2L NC, weaned to RA, pt NOT on home O2
CXR with Mild acute interstitial and alveolar cardiogenic pulmonary edema. Minimal bilateral pleural effusions.
BNP 39767
Echo: EF 35-40%, Global hypokinesis. Moderate to severe mitral regurgitation.�
s/p IV Lasix; lasix on hold due to possible allergy
Card on board, timing of cardiac cath TBD
Started ASA, Coreg with holding parameter
await GI clearance for dual antiplatelet therapy if catheterization is to be scheduled as inpatient. Plan for colonoscopy 10/31
Atrial fibrillation 10/29, spontaneously converted to normal sinus rhythm
now on PO amio
Diffuse macular rash
ID following
Unlikely due to antibiotics however. Will discontinue and monitor since okay with infectious disease
# Acute on chronic anemia
iron panel, B12, folate levels acceptable
transfused 1 unit PRBC
s/p EGD eval prior to cardiac cath 10/27: EGD was normal.� Her colonoscopy was in 2018 which showed small adenoma and diverticulosis.� She is due for colonoscopy which can be arranged as OP.� She should complete colonoscopy before we can give
clearance to begin anti-platelet therapy, however the risk of bleeding lesion is low and can begin anti-platelet therapy if cardiology feels patient can not wait until OP colonoscopy is completed.
# Diarrheal illness, likely ABx related
now slowly improving
She had been off Laxatives since 09/27/23
C Diff/norovirus/stool Cx negative from admission, repeat C diff again negative
COVID negative
stopped PO PPI, stopped Miralax
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
Was recommended by ID to cont IV antibiotic Ceftriaxone through�11/01/23. Stop now due to rash. ID following
PT OT recc HH
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
started gabapentin 100 mg HS
# Cough, intermittent; likely related to acute CHF
COVID/ Flu/RSV were negative
Tessalon PRN for cough
# Fibromyalgia HX, Stable
Hold Lexapro/SSRI�due to current severe hyponatremia
Added lidocaine patch for shoulder and lower back
# Insomnia
Cont CAR FERRIER Ambien PRN
DVT Prophylaxis:�Lovenox SQ
Full code
General: Well Developed, Well Nourished, Comfortable and Conversant
Respiratory: Clear to Auscultation and Non Labored Respirations; Negative Wheezes or Accessory Resp Muscle Use
Cardiac: Regular Rhythm and S1/S2
GI: Soft and Nontender
Musculoskeletal: No Edema
Skin: Warm, Dry and Other (R foot with dressing); Negative Rash
Neuro: Awake
Psych: Calm and Intact Judgement/Insight
Anticipated Discharge: > 48 hours
Subjective/Interval History
-
Date of Service: October 31, 2023
now with macular rash
Objective Data
-
Labs:
Laboratory Results
10/31/23
05:01
WBC 12.5 H
Hgb 8.3 L
Hct 23.6 L
Plt Count 349
Sodium 131 L
Potassium 4.0
Chloride 100
Carbon Dioxide 22
BUN 13
Creatinine 0.8
Glucose 108 H
Calcium 9.1
Vital Signs:
Vital Signs
Temp Pulse Resp BP Pulse Ox
97.4 F 96 24 115/74 91
10/31/23 07:14 10/31/23 14:01 10/31/23 14:01 10/31/23 14:01 10/31/23 14:01
I&O
10/30/23 10/31/23 11/01/23
06:59 06:59 06:59
Intake Total 950 / 950
Balance 950 / 950
--- NOTE | 2023-10-31 14:50 | SUR.OPER ---
Patient off floor to GI lab for colonoscopy. Patient finished prep and report given to GI RN.
--- NOTE | 2023-10-31 15:31 | W.PN.UPDATE ---
Update Note
Progress Note Update
s/p Colonoscopy-
- The examined portion of the ileum was normal.
- Patchy mild inflammation characterized by altered vascularity, congestion (edema), erosions and granularity was found in the entire colon. Biopsies were taken with a cold forceps for histology.
- Diverticulosis in the sigmoid colon and in the descending colon.
Plan
- Await pathology results.
- Telephone GI clinic for pathology results in 2 weeks.
- Low residue diet.
- r/o Inflamamtory bowel disease on biopsies.
- Based on the pathology results, may start Mesalamine tablets or steroids if need be.
- OK to cardiac work-up.
- Follow up with as outpatient.
[2023-10-31] MEDS: FERRLECIT 110 MG IV (16:51)
--- NOTE | 2023-10-31 17:11 | PTCARENOTE ---
Patient back from GI lab. Started on low residue diet. Will be NPO for breakfast tomorrow for possible cardiac cath. Vital signs stable. Patient offers no complaints. Dr. Byers notified for latest troponin result. No orders obtained. Will
continue to monitor.
--- NOTE | 2023-10-31 17:40 | CM ---
Patient with Hx Right foot cellulitis and osteomyelitis on home IV ceftriaxone, with Dx hyponatremia, CHF, anemia, Diarrheal illness, body rash. Colonoscopy today. Plan cardiac cath tomorrow. O2 2L. Right foot dressing per nurse. Receiving IV
Fe Gluconate. PT & OT recommend HH.
Plan watch for home O2 needs.
Plan home with [facility].
[2023-10-31] MEDS: LOVENOX 40 MG SC (18:15)
[2023-10-31] MEDS: NEURONTIN 100 MG PO (21:05)
[2023-10-31] MEDS: TESSALON PERLES 200 MG PO (21:06)
[2023-10-31] MEDS: COREG 6.25 MG PO (21:07)
[2023-10-31] MEDS: AMBIEN 5 MG PO (22:43)
[2023-11-01] VITALS (36 sets, daily range): BP systolic 111–171; BP diastolic 72–120; PULSE 2–93
--- NOTE | 2023-11-01 02:45 | PTCARENOTE ---
npo in anticipation of cath- sinus afebrile bop wnl- pt resting comfortably in bed
[2023-11-01] MEDS: TESSALON PERLES 200 MG PO ×4 (03:16→20:37)
[2023-11-01] MEDS: TYLENOL 650 MG PO ×2 (03:48→13:21)
[2023-11-01 04:30] LABS: % Basophils 0.8 % (0-2); % Eosinophils 2.2 % (0-6); % Immature Granulocytes 0.7 % (0-0.5); % Lymphocytes 14.1 % (20.5-51.1); % Monocytes 5.8 % (1.7-9.3); % Neutrophils 76.4 % (42.2-75.2); Absolute Basophils 0.1 10^3/uL (0-0.2); Absolute Eosinophils 0.2 10^3/uL (0-0.7); Absolute Immature Granulocytes 0.1 10^3/uL (0-0.05); Absolute Lymphocytes 1.1 10^3/uL (1.2-3.4); Absolute Monocytes 0.4 10^3/uL (0.1-0.6); Absolute Neutrophils 5.8 10^3/uL (1.4-6.5); Hematocrit 23.3 % (37.0-47.0); Hemoglobin 8.1 g/dL (12.0-16.0); Mean Corp Hgb Conc. 34.8 g/dL (33.0-37.0); Mean Corpuscular Hgb 32.5 pg (27.0-31.0); Mean Corpuscular Volume 93.6 fL (81.0-99.0); Mean Platelet Volume 9.2 fL (7.4-10.4); Nucleated Red Blood Cells % 0 %; Platelet Count 376 10^3/uL (130-400); Red Blood Cell Count 2.49 10^6/uL (4.20-5.40); Red Cell Dist. Width 13.5 % (11.5-14.5); White Blood Cell Count 7.6 10^3/uL (4.8-10.8)
[2023-11-01 04:45] LABS: Blood Urea Nitrogen 13 mg/dl (7-17); Calcium 9.1 mg/dl (8.4-10.2); Carbon Dioxide 21 mmol/L (22-30); Chloride 100 mmol/L (98-107); Estimated Creatinine Clearance 62 ml/min; Glucose 96 mg/dl (70-99); Potassium 3.8 mmol/L (3.5-5.1); Sodium 129 mmol/L (135-145); eGFR > 60.00
[2023-11-01] MEDS: ULTRAM 25 MG PO (05:19)
--- NOTE | 2023-11-01 05:26 | PTCARENOTE ---
Addendum entered by Mark Gonzalez RN 11/01/23 06:24:
pt feels better- found relief with tramadol- remans npo for cath today
Addendum entered by Mark Gonzalez RN 11/01/23 05:39:
pt feels better- she is very anxious abut todays procedure in systems testing laboratory technician. support given. . pt expresses feeling better after repositioning and tramadol
Addendum entered by Mark Gonzalez RN 11/01/23 05:32:
pt feels all these event were precipitated her back pain- Ultram given
Original Note:
pt with chest heavness and mayorga that she says she has experinced on and off since before this admission. ekg done- 2 liters o2 nc- sinus bbb bp wnl
[2023-11-01] MEDS: SODIUM CHLORIDE 0.5 GRAM PO (09:10)
[2023-11-01] MEDS: LOW STRENGTH ASPIRIN 81 MG PO (09:10)
[2023-11-01] MEDS: FLORASTOR 250 MG PO ×2 (09:10→20:38)
[2023-11-01] MEDS: LIDOCAINE 4% PATCH 1 PATCH TOPICAL (09:11)
[2023-11-01] MEDS: PACERONE 200 MG PO ×2 (09:11→20:38)
[2023-11-01] MEDS: COREG 6.25 MG PO ×2 (09:12→20:37)
[2023-11-01] MEDS: VISBIOME 1 CAP PO (09:12)
[2023-11-01] MEDS: LIDOCAINE 4% PATCH TOPICAL (09:13)
--- NOTE | 2023-11-01 10:15 | PTCARENOTE ---
Pt rec'd from information and referral director, plan of care discussed-pt in agreement for cardiac cath today. Pt has been NPO since MN. Voided on bedside commode, clothing removed, sent to laboratory apparatus glass blower 10:00 am.
--- NOTE | 2023-11-01 11:16 | ITS.CL.CATH ---
Business Architect - Catheterization
Cardiac Catheterization
Procedure Report:
LEFT AND RIGHT HEART CATHETERIZATION
Date of Procedure: November 01, 2023
Referring: Adam Byers
PROCEDURES:
1. Left heart catheterization, coronary angiogram.
2. Right heart catheterization.
3. Ultrasound-guided access.
INDICATION: New LV dysfunction with severe cardiomyopathy, LVEF of 35 to 40%, now being referred for a left and right heart catheterization
ACCESS:
1. Right radial artery, 5 Serbian sheath, under ultrasound guidance
2. Right common femoral vein, 6 Serbian sheath, under ultrasound-guided using a micropuncture kit
HEMODYNAMICS : (mmHg)
RA (m) : 13
RV (s/d,m) : 47/9, 16
PA (s/d, m) : 48/23, 36
PCWP (m) : 27 with V waves up to 39
PA saturation: 55.3% on 4 L of oxygen via nasal cannula
AO saturation: 94.7% on 4 L of oxygen via nasal cannula
RA saturation: 55.2% on 4 L of oxygen via nasal cannula
Cardiac Output : 3.79 L/min
Cardiac Index : 2.26 L/min/m-2
Systemic vascular resistance: 1961 dsc^(-5)
Pulmonary vascular resistance: 2.4 hu unit
Heart rate 88 bpm
AO (s/d) : 128/80
LV (s/d) : 130/16
LVEDP : 29
CORONARY FINDINGS
DOMINANCE: Right
LEFT MAIN: Left main artery is a large-caliber vessel which gives rise to a left into descending artery and left circumflex artery. Angiographically normal vessel.
LEFT ANTERIOR DESCENDING: The left anterior descending artery is a medium caliber vessel which gives rise to 1 large caliber diagonal branch. There is minimal luminal irregularities
CIRCUMFLEX: The left circumflex artery is a medium caliber vessel which gives rise to 2 small caliber obtuse marginal branches. There is minimal luminal irregularities.
RIGHT CORONARY ARTERY: The right coronary artery is a large-caliber, dominant vessel which gives rise to a large caliber RPDA and a large posterolateral system. Angiographically normal vessel.
SEDATION: 36 minutes of procedural sedation was utilized. An independent medical affairs specialist was present to assist with and help manage the patient's level of consciousness and physiologic status.
RADIATION SUMMARY: Fluoro Time (min): 3.9, Dose (mGy): 208.2, DAP (Gy.cm2) : 19.4
Closure Device:
1. Vascular band over right radial artery, 8 cc of air.
2. Manual pressure was held over the right common femoral venous access site with successful hemostasis.
CONCLUSIONS
1. No obstructive coronary artery disease.
2. Significantly elevated right and left-sided filling pressures with normal cardiac output and elevated systemic vascular resistance.
RECOMMENDATIONS
1. Wean radial band per protocol.
2. Optimize goal-directed medical therapy for non-ischemic cardiomyopathy and optimization of filling pressures using IV diuretics per nephrology given she presented with significant hyponatremia.
3. Eventual referral for outpatient cardiac rehab.
Adam Byers MD
Makenzie Sands MD, [facility]
--- NOTE | 2023-11-01 12:40 | PTCARENOTE ---
Pt back in room from slab conditioner supervisor 11:30, handoff from slab conditioner supervisor RNs rec'd. Pt with no complaints at this time.
--- NOTE | 2023-11-01 12:45 | W.PN.HOSP.TC ---
Today's Communication/Plan
-
monitor vitals
see plan
start bumex
monitor rash
Assessment / Plan
Assessment / Plan
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 She was admitted Sep 2023 for foot infection, underwent incision and drainage and had been on IV antibiotic Ceftriaxone.
ID called in for Flagyl which made her ill with nausea and she has been having diarrhea.
She follows with her family doctor and gang head saw operator for wound care.
A/P:
# Severe hyponatremia - suspect multifactorial due to hypovolemia from poor PO intake and diarrhea, and SIADH component
s/p NSS 1L bolus in ER
s/p 3% NSS per renal
Monitor sodium. Samsca given 10/29.
TSH 1.24, random cortisol level 11.7
Renal on board
# Severe hypokalemia
resolved after repletion
# New acute systolic CHF
# Acute hypoxic respiratory insufficiency
Placed on 2L NC, weaned to RA, pt NOT on home O2
CXR with Mild acute interstitial and alveolar cardiogenic pulmonary edema. Minimal bilateral pleural effusions.
BNP 06499
Echo: EF 35-40%, Global hypokinesis. Moderate to severe mitral regurgitation.�
s/p IV Lasix; lasix on hold due to possible allergy; cath 11/01 with increase wedge pressure suggestive of fluid overload; nephrology started bumex
Started ASA, Coreg with holding parameter
cscope 10/31 with patchy mild inflammation. Biopsies were taken. Rule out inflammatory bowel disease. Per GI okay for low residue diet. Patient to follow-up with GI outpatient.
Atrial fibrillation 10/29, spontaneously converted to normal sinus rhythm
now on PO amio
Diffuse macular rash
slowly improving
ID following
Unlikely due to antibiotics however. Will discontinue and monitor since okay with infectious disease. if rash would get worse then would hold gabapentin
# Acute on chronic anemia
iron panel, B12, folate levels acceptable
transfused 1 unit PRBC
s/p EGD eval prior to cardiac cath 10/27: EGD was normal.� Her colonoscopy was in 2018 which showed small adenoma and diverticulosis.� She is due for colonoscopy which can be arranged as OP.� She should complete colonoscopy before we can give
clearance to begin anti-platelet therapy, however the risk of bleeding lesion is low and can begin anti-platelet therapy if cardiology feels patient can not wait until OP colonoscopy is completed.
# Diarrheal illness, likely ABx related
now slowly improving
She had been off Laxatives since 09/27/23
C Diff/norovirus/stool Cx negative from admission, repeat C diff again negative
COVID negative
stopped PO PPI, stopped Miralax
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
Was recommended by ID to cont IV antibiotic Ceftriaxone through�11/01/23. Stop now due to rash. ID following
PT OT recc HH
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
started gabapentin 100 mg HS
# Cough, intermittent; likely related to acute CHF
COVID/ Flu/RSV were negative
Tessalon PRN for cough
# Fibromyalgia HX, Stable
Hold Lexapro/SSRI�due to current severe hyponatremia
Added lidocaine patch for shoulder and lower back
# Insomnia
Cont VOICE PATHOLOGIST Ambien PRN
DVT Prophylaxis:�Lovenox SQ
Full code
General: Well Developed, Well Nourished, Comfortable and Conversant
Respiratory: Clear to Auscultation and Non Labored Respirations; Negative Wheezes or Accessory Resp Muscle Use
Cardiac: Regular Rhythm and S1/S2
GI: Soft and Nontender
Musculoskeletal: No Edema
Skin: Warm, Dry and Other (R foot with dressing); Negative Rash
Neuro: Awake
Psych: Calm and Intact Judgement/Insight
Anticipated Discharge: > 48 hours
Subjective/Interval History
-
Date of Service: November 01, 2023
denies pain
Objective Data
-
Labs:
Laboratory Results
11/01/23 11/01/23
03:21 03:22
WBC 7.6
Hgb 8.1 L
Hct 23.3 L
Plt Count 376
Sodium 129 L
Potassium 3.8
Chloride 100
Carbon Dioxide 21 L
BUN 13
Creatinine 0.8
Glucose 96
Calcium 9.1
Vital Signs:
Vital Signs
Temp Pulse Resp BP Pulse Ox
97.5 F 103 34 133/86 95
11/01/23 11:30 11/01/23 09:11 11/01/23 08:00 11/01/23 09:11 11/01/23 08:00
I&O
10/31/23 11/01/23 11/02/23
06:59 06:59 06:59
Intake Total 950 / 950 1565 / 1565
Balance 950 / 950 1565 / 1565
--- NOTE | 2023-11-01 12:55 | W.PN.NEPH.PH ---
Today's Communication / Plan
-
strat bumex
Assessment/Plan
-
Assessment:
Severe hyponatremia (roxanne 115)
Severe hypokalemia
hypotension
Diarrheal illness
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
Fibromyalgia HX
HTN not on meds
GERD
Anxiety
Plan:
Hyponatremia seem hypervolemic now
s/p L/RHC no obst coronaries but sig high filling pressures, PCWP of 39
will start diuretics
given rash avoiding lasix-try bumex, off abx now
may need to hold salt tab
maintain FR 40 ounces/day
labs in am
d/w pt and nursing
-
-
Date of Service: November 01, 2023
CC / HPI / ROS
-
Chief Complaint:
hyponatremia
History of Present Illness:
hyponatremia, sodium down to 129
BP stable
no fever
hgb stable
Review of Systems:
no cp or sob at rest
on O2
c/o LE edema
Labs
-
Labs:
WBC 7.6 10^3/uL (4.8-10.8) 11/01/23 03:22
RBC 2.49 10^6/uL (4.20-5.40) L 11/01/23 03:22
Hgb 8.1 g/dL (12.0-16.0) L 11/01/23 03:22
Hct 23.3 % (37.0-47.0) L 11/01/23 03:22
Plt Count 376 10^3/uL (130-400) 11/01/23 03:22
Sodium 129 mmol/L (135-145) L 11/01/23 03:21
Potassium 3.8 mmol/L (3.5-5.1) 11/01/23 03:21
Chloride 100 mmol/L (98-107) 11/01/23 03:21
Carbon Dioxide 21 mmol/L (22-30) L 11/01/23 03:21
BUN 13 mg/dl (7-17) 11/01/23 03:21
Creatinine 0.8 mg/dL (0.6-1.0) 11/01/23 03:21
eGFR > 60.00 11/01/23 03:21
Glucose 96 mg/dl (70-99) 11/01/23 03:21
Calcium 9.1 mg/dl (8.4-10.2) 11/01/23 03:21
[id number] Pept 32903 pg/ml 10/24/23 12:13
Albumin 2.8 g/dl (3.5-5.0) L 10/23/23 19:01
Physical Exam
-
Vital Signs:
Vital Signs
Temp Pulse Resp BP Pulse Ox
97.5 F 103 34 133/86 95
11/01/23 11:30 11/01/23 09:11 11/01/23 08:00 11/01/23 09:11 11/01/23 08:00
Cardiovascular:: Regular rate and rhythm
Respiratory:: Bilateral: Rales (at bases)
Lung Excursion:: Normal
Abdomen:: Nontender and Soft
Extremity Edema:: None: Bilateral: (trace)
Marquez Catheter: No
--- NOTE | 2023-11-01 13:03 | W.PN.ID1 ---
Date of Service
Date of Service: November 01, 2023
Today's Communication
See below.
Assessment / Plan
# Rash progressing
- Ceftriaxone discontinued after day 40 (last dose received on 10/30/23)
Unlikely due to ceftriaxone.
- Furosemide held.
- If rash is no better, consider holding gabapentin (new drug started 10/25/28)
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
�� �- 09/22 s/p� OR I+D of abscess
- Completed 40d ceftriaxone
# New finding of cardiomyopathy, severe MR
- cardiac cath: no CAD
# Anemia
- colonoscopy - inflamed colon
# Severe hyponatremia improving.
Chief Complaint
-: Other (Rash)
Subjective / Review of Systems
Rash still present, but does not 'burn' as much.
Vital Signs / Physical Exam
Vital Signs
Vital Signs
Temp Pulse Resp BP Pulse Ox
97.5 F 93 25 133/96 94
11/01/23 11:30 11/01/23 12:02 11/01/23 12:02 11/01/23 12:02 11/01/23 12:55
Physical Exam
Constitutional: Comfortable
Eyes: No Conjunctival Hemorrhage
Cardiovascular: Regular Rate and S1/S2
Pulmonary: Clear (anteriorly)
Gastrointestinal: Soft, Non Tender, Non Distended and Normal Bowel Sounds
Skin: Rash (maculopapular rash on lower abdomen has extended up)
Neurological: AO x 3
Objective Data
Lab Data
Lab Results
11/01/23 03:22
11/01/23 03:21
Estimated Creat Clear 62 ml/min 11/01/23 03:21
Total Bilirubin 0.8 mg/dl (0.2-1.3) 10/23/23 19:01
AST 24 U/L (14-36) 10/23/23 19:01
ALT 58 U/L (0-35) H 10/23/23 19:01
Alkaline Phosphatase 355 U/L (38-126) H 10/23/23 19:01
Most recent labs reviewed.
Micro Results:
10/28/23 11:04 C. difficile GDH Antigen & Toxins - Final
Feces/Stool Negative for toxigenic C.difficile
10/24/23 10:04 Salmonella/Shigella Culture - Final
Feces/Stool No Salmonella, Shigella, Aeromonas or Plesiomonas species
isolated.
Campylobacter Culture - Final
No Campylobacter species isolated.
Shiga Toxin Test - Final
No E. coli Shiga Toxin 1 or 2 detected.
10/25/23 11:26 Respiratory Syncytial Virus Culture - Final
Nasal Swab Negative for Respiratory Syncytial Virus.
A false negative result may be obtained with a specimen
collected early in the acute phase. If symptoms persist, a
new specimen should be tested.
10/25/23 11:26 Influenza Types A & B ([facility]) - Final
Nasal Swab Negative for Influenza A & B, NAAT
Negative results must be combined with clinical observations
and patient history.
Nucleic Acid Amplification test (NAAT)performed on the
[employer] platform.
10/23/23 23:51 MRSA Screen - Final
Nose No Methicillin Resistant Staphylococcus aureus isolated.
10/24/23 10:04 - Final
Feces/Stool Negative for Norovirus GI and GII.
10/24/23 10:04 C. difficile GDH Antigen & Toxins - Final
Feces/Stool Negative for toxigenic C.difficile
[2023-11-01] MEDS: BUMEX 0.5 MG IV ×2 (13:19→16:06)
[2023-11-01] MEDS: FERRLECIT 110 MG IV (13:21)
--- NOTE | 2023-11-01 13:58 | PN.CDI ---
CDI
- -
CDI:
Physician Documentation Request
Admit Date: 10/23/23 20:35
Dear Doctor Yoav,
Please review the following and provide your response in the progress notes.
Clinical Indicators:
Cardiology PN, 10/31
#Cardiomyopathy: Suspect nonischemic but cardiac catheterization indicated
#Could relate to left bundle branch block
#Could relate to mitral regurgitation but I am skeptical,
#...more likely MR is the results of LV dysfunction
Laboratory Tests
10/31/23
13:48
Troponin I 0.100 H*
Based on the above and your clinical assessment, please clarify in the progress notes, the appropriate diagnosis, if significant, that supports the above abnormalities and additional evaluation, monitoring and/or treatment rendered:
Non DC troponin elevation
Abnormal lab value, clinically insignificant
Other
Unable to determine
Use of terms such as suspected, likely, concern for, or probable (associated with a specific diagnosis that is being evaluated, monitored, or treated as if it exists) are acceptable and can be coded in the inpatient setting, when documented at the
time of discharge.
Thank you,
Pamela Trevino RN BSN CCDS
CDI Specialist
please contact via tiger text
Please use your independent medical judgment in providing your response.
[2023-11-01] MEDS: ATIVAN 0.5 MG PO ×2 (14:27→20:37)
--- NOTE | 2023-11-01 14:38 | PTCARENOTE ---
Pt assisted oob to use bsc and sit in chair. Pt refuses the remainder of her Ferrlecit infusion due to concern r/t her 'mother had a reaction to Iron' in the past. Pt having multiple panic attacks this afternoon, discussed with Dr. Cason-med list
reviewed....Home antidepressant has been held due to hyponatremia per Dr. Cason, will add IV Ativan. PRN dose given at this time, pt seated in chair, eating food brought in from home, PRN Tessalon Pearls and Tylenol also given, see MAR at this time.
IV Bumex given as well. Will cont to monitor.
[2023-11-01] MEDS: DUONEB 3 ML INH (15:52)
[2023-11-01] MEDS: LOPRESSOR 5 MG IV (16:07)
--- NOTE | 2023-11-01 16:12 | PTCARENOTE ---
Approx 16:00 pt became extrem tachycardic, tachypneic and diaphoretic, c/o 'I can't breathe' sats dipping on 6L, Dr. Cason notified -orders rec'd for duoneb, CXR, ECG, additional Bumex and Lopressor. Pt placed on bipap by RT Newman, now 14/6 with 15L
bleeding in. Labs also ordered.
--- NOTE | 2023-11-01 16:26 | W.PN.UPDATE ---
Update Note
Progress Note Update
Notified by nurse that patient is complaining of severe short of breath and now on 6 L. EKG was consistent with sinus tachycardia with left bundle branch block which she has from before. Patient had cardiac catheterization earlier today which
showed elevated wedge pressure. Patient had 25 mg IV Bumex earlier today, will give another dose now. also lopressor given. Monitor response. Chest x-ray consistent with fluid overload. Also started patient on BiPAP 15/03. check CBC, BMP and
troponin. Later cardiology also arrived who agrees with the plan. If this does not work then cardiology recommended possible nitro.
General: Acute respiratory distress
Respiratory:coarse breath sounds
Cardiac: Regular Rhythm and S1/S2,tachycardia
GI: Soft and Nontender
Musculoskeletal: No Edema
Skin: Warm, Dry and Other (R foot with dressing)
Neuro: Awake
Psych: Anxious
Total Critical Care Time__34___ minutes. I was immediately available to the patient and staff. I personally examined, reviewed labs, diagnostic images/reports, interpretations, treatment plans, discussed patient care with other providers and
family or caregivers (if patient is unable to make decisions), entered orders as appropriate and documented the medical record.
[2023-11-01 16:34] LABS: % Basophils 0.6 % (0-2); % Eosinophils 0.7 % (0-6); % Immature Granulocytes 0.9 % (0-0.5); % Lymphocytes 9.5 % (20.5-51.1); % Monocytes 3.1 % (1.7-9.3); % Neutrophils 85.2 % (42.2-75.2); Absolute Basophils 0.1 10^3/uL (0-0.2); Absolute Eosinophils 0.1 10^3/uL (0-0.7); Absolute Immature Granulocytes 0.1 10^3/uL (0-0.05); Absolute Lymphocytes 1.1 10^3/uL (1.2-3.4); Absolute Monocytes 0.4 10^3/uL (0.1-0.6); Absolute Neutrophils 9.8 10^3/uL (1.4-6.5); Hemoglobin 8.9 g/dL (12.0-16.0); Mean Corp Hgb Conc. 34.2 g/dL (33.0-37.0); Mean Corpuscular Hgb 32.2 pg (27.0-31.0); Mean Corpuscular Volume 94.2 fL (81.0-99.0); Mean Platelet Volume 8.8 fL (7.4-10.4); Nucleated Red Blood Cells % 0 %; Platelet Count 539 10^3/uL (130-400); Red Blood Cell Count 2.76 10^6/uL (4.20-5.40); Red Cell Dist. Width 13.5 % (11.5-14.5); White Blood Cell Count 11.6 10^3/uL (4.8-10.8)
[2023-11-01 16:43] LABS: Blood Urea Nitrogen 14 mg/dl (7-17); Calcium 9.2 mg/dl (8.4-10.2); Carbon Dioxide 15 mmol/L (22-30); Chloride 97 mmol/L (98-107); Estimated Creatinine Clearance 62 ml/min; Glucose 247 mg/dl (70-99); Potassium 4.1 mmol/L (3.5-5.1); Sodium 128 mmol/L (135-145); eGFR > 60.00
--- NOTE | 2023-11-01 16:44 | W.PN.GI.CBS2 ---
Today's Communication / Plan
-
Plan
- Await pathology results.
- Low residue diet.
- r/o Inflamamtory bowel disease on biopsies.
- Based on the pathology results, may start Mesalamine tablets or steroids if need be.
- OK to cardiac work-up.
- Telephone GI clinic for pathology results in 2 weeks.
- Follow up with as outpatient.
Will sign off, please call back if needed and will follow-up with the pathology results as well.
Assessment / Plan
-
58 year old female with fibromyalgia, GERD and colon polyps who recently admitted for osteomyelitis of the right foot, re-admitted since 10/23/23 for hyponatremia. With new findings of moderate to severe MR with EF 35-40% Cardiology planning for
cardiac catheterization to rule out underlying CAD. GI has been consulted for anemia.
At discharge on 09/27/23, most recent Hgb was 9.4. Today, 10/27/23, Hgb is 7.6. Patient denies any scooter bleeding; no black/bloody stools or hematemesis as noted previously. She takes omeprazole 20mg daily for reflux, which she states works well to
control her GERD. She does admit to the recent heavy NSAID use, and admits to drinking 8 alcoholic drinks/week (beer or wine). She had an endoscopy in [address] Bateman which showed a Schatzki ring (which was dilated with balloon dilation to 20mm)
and an irregular Z line; esophageal biopsies showed chronic esophagitis, negative for Stover's esophagus. She had colonoscopy in 2018 which showed diverticulosis and a small adenoma in the ascending colon. Diarrhea has improved since coming to the
hospital and stool studies were negative (C diff, salmonella, shigella, aeromonas, plesiomonas, campylobacter, shiga toxin, norovirus all negative). She does complain of dysphagia and hoarseness, which she states has been a chronic issue for her.
The dysphagia did not improve after her last EGD with dilation in 2021. She states she saw ENT for this as well, was scoped, reporteldy negative. She is a non-smoker. There is no family history of GI malignancies, IBD or celiac disease.
Yesterday, 10/29/23, pt developed rapid atrial fibrillation and was started on amiodarone by Cardiology. No anticoagulation started.
s/p Colonoscopy-
- The examined portion of the ileum was normal.
- Patchy mild inflammation characterized by altered vascularity, congestion (edema), erosions and granularity was found in the entire colon.� Biopsies were taken with a cold forceps for histology.
- Diverticulosis in the sigmoid colon and in the descending colon.
Plan
- Await pathology results.
- Low residue diet.
- r/o Inflamamtory bowel disease on biopsies.
- Based on the pathology results, may start Mesalamine tablets or steroids if need be.
- OK to cardiac work-up.
- Telephone GI clinic for pathology results in 2 weeks.
- Follow up with as outpatient.
Will sign off, please call back if needed and will follow-up with the pathology results as well.
Subjective
Subjective
Date of Service: November 01, 2023
Reviewed events with shortness of breath and possible volume overload. No bowel movement today and no GI complaints
Objective
Data Reviewed
Laboratory Data:
Laboratory Results
11/01/23 16:22
11/01/23 16:22
Laboratory Results
Magnesium 1.8 mg/dl (1.6-2.3) 10/30/23 05:08
Total Bilirubin 0.8 mg/dl (0.2-1.3) 10/23/23 19:01
AST 24 U/L (14-36) 10/23/23 19:01
ALT 58 U/L (0-35) H 10/23/23 19:01
Alkaline Phosphatase 355 U/L (38-126) H 10/23/23 19:01
Vital Signs and I&O:
Vital Signs
Temp Pulse Resp BP Pulse Ox
97.5 F 86 28 141/93 90
11/01/23 11:30 11/01/23 16:35 11/01/23 16:35 11/01/23 16:35 11/01/23 16:35
I&O
10/31/23 11/01/23 11/02/23
06:59 06:59 06:59
Intake Total 950 / 950 1565 / 1565 240 / 240
Balance 950 / 950 1565 / 1565 240 / 240
Physical Exam
Physical Exam
GI: Soft, Non Distended, Non Tender and Normal Bowel Sounds
--- NOTE | 2023-11-01 16:44 | W.PN.GI.CBS2 ---
Addendum entered and electronically signed by Vivien Ibarra MD 11/01/23 17:14:
I saw and examined the patient.
The REFERENCE INVESTIGATOR or PA's note was reviewed and I agree with the note.
Comment: Please see note from me in a separate document
Original Note:
Today's Communication / Plan
-
cont rx for pulm edema per cardiology/medical team
s/p colonoscopy as noted
await pathology may need mesalamine vs steroids based on path
cont cholesterol lowering diet
OP follow with Dr. Bateman
updated spouse
Assessment / Plan
-
58 year old female with fibromyalgia, GERD and colon polyps who recently admitted for osteomyelitis of the right foot, re-admitted since 10/23/23 for hyponatremia. With new findings of moderate to severe MR with EF 35-40% Cardiology planning for
cardiac catheterization to rule out underlying CAD. GI has been consulted for anemia with hbg down to 7.6. + recent NSAID use with ETOH use. She had an endoscopy in [address] Bateman which showed a Schatzki ring (which was dilated with balloon
dilation to 20mm) and an irregular Z line; esophageal biopsies showed chronic esophagitis, negative for Stover's esophagus. She had colonoscopy in 2017 which showed diverticulosis and a small adenoma in the ascending colon. + chronic dysphagia.
10/29/23, pt developed rapid atrial fibrillation and was started on amiodarone by Cardiology. No anticoagulation started.
10/31/23 colonoscopy - The examined portion of the ileum was normal.
�� � � � � � � � � � � - Patchy mild inflammation was found in the entire
�� � � � � � � � � � � examined colon secondary to colitis. Biopsied.
�� � � � � � � � � � � - Diverticulosis in the sigmoid colon and in the
�� � � � � � � � � � � descending colon.
11/01 cath
1.� No obstructive coronary artery disease.
2.� Significantly elevated right and left-sided filling pressures with normal cardiac output and elevated systemic vascular resistance.
IMPRESSION / PLAN:
Anemia, normocytic
diarrhea
hyponatremia
pulm edema 11/01
CHF
afib
cellulitis /osteo
PLAN:
cont rx for pulm edema per cardiology/medical team
s/p colonoscopy as noted
await pathology may need mesalamine vs steroids based on path
cont cholesterol lowering diet
OP follow with Dr. Bateman
updated spouse
Subjective
Subjective
Date of Service: November 01, 2023
11/01 escobar stool on cholesterol lowering diet -- increased shortness of breath per staff with concern for pulm edema
Objective
Data Reviewed
Laboratory Data:
Laboratory Results
11/01/23 16:22
11/01/23 16:22
Laboratory Results
Magnesium 1.8 mg/dl (1.6-2.3) 10/30/23 05:08
Total Bilirubin 0.8 mg/dl (0.2-1.3) 10/23/23 19:01
AST 24 U/L (14-36) 10/23/23 19:01
ALT 58 U/L (0-35) H 10/23/23 19:01
Alkaline Phosphatase 355 U/L (38-126) H 10/23/23 19:01
Vital Signs and I&O:
Vital Signs
Temp Pulse Resp BP Pulse Ox
97.5 F 86 28 141/93 98
11/01/23 11:30 11/01/23 16:35 11/01/23 16:35 11/01/23 16:35 11/01/23 16:43
I&O
10/31/23 11/01/23 11/02/23
06:59 06:59 06:59
Intake Total 950 / 950 1565 / 1565 240 / 240
Balance 950 / 950 1565 / 1565 240 / 240
Physical Exam
Physical Exam
HEENT: Anicteric and Moist mucous membranes
Cardiology: Normal Sinus Rhythm
Pulmonary: Rhonchi and Other (tachypnea on bipap)
GI: Soft, Non Distended and Non Tender
Neuro: Other (sleepy but arousable )
[2023-11-01 16:56] LABS: Troponin I 0.108 ng/ml
[2023-11-01] MEDS: LOVENOX 40 MG SC (17:26)
--- NOTE | 2023-11-01 18:24 | PTCARENOTE ---
Pt did not void independently after second dose Bumex, so Dr. Cason notified, orders rec'd for bladder scan and straight cath per protocol. BS performed at 17:30 for 750 mls, straight cath performed with 1000 mls drained. Pt tolerated, resting
comfortably with bipap in place. Mult family and friends in to visit. VSS. Continuing to closely monitor.
[2023-11-01] MEDS: ATROVENT NEBULES 0.5 MG INH (19:45)
[2023-11-01] MEDS: XOPENEX 1.25 MG INHALANT SOLUTION INH (19:45)
[2023-11-01] MEDS: NEURONTIN 100 MG PO (20:37)
[2023-11-01] MEDS: AMBIEN 5 MG PO (22:09)
[2023-11-02] VITALS (18 sets, daily range): BP systolic 114–153; BP diastolic 66–98; PULSE 2–108; O2SAT 94; BMI 25.4
--- NOTE | 2023-11-02 00:52 | PTCARENOTE ---
ax3 tolerating bipap- sinus- expresses feeling much better after diuresing. assisted with pm care and mouth care
[2023-11-02 04:22] LABS: % Basophils 0.4 % (0-2); % Immature Granulocytes 0.7 % (0-0.5); % Lymphocytes 17.3 % (20.5-51.1); % Monocytes 5.3 % (1.7-9.3); % Neutrophils 75.3 % (42.2-75.2); Absolute Eosinophils 0.1 10^3/uL (0-0.7); Absolute Immature Granulocytes 0.1 10^3/uL (0-0.05); Absolute Lymphocytes 1.5 10^3/uL (1.2-3.4); Absolute Monocytes 0.5 10^3/uL (0.1-0.6); Absolute Neutrophils 6.7 10^3/uL (1.4-6.5); Hematocrit 24.9 % (37.0-47.0); Hemoglobin 8.5 g/dL (12.0-16.0); Mean Corp Hgb Conc. 34.1 g/dL (33.0-37.0); Mean Corpuscular Hgb 32.8 pg (27.0-31.0); Mean Corpuscular Volume 96.1 fL (81.0-99.0); Nucleated Red Blood Cells % 0 %; Platelet Count 418 10^3/uL (130-400); Red Blood Cell Count 2.59 10^6/uL (4.20-5.40); Red Cell Dist. Width 13.4 % (11.5-14.5); White Blood Cell Count 8.9 10^3/uL (4.8-10.8)
[2023-11-02 04:43] LABS: Blood Urea Nitrogen 14 mg/dl (7-17); Calcium 9.2 mg/dl (8.4-10.2); Carbon Dioxide 24 mmol/L (22-30); Chloride 101 mmol/L (98-107); Estimated Creatinine Clearance 62 ml/min; Glucose 93 mg/dl (70-99); Potassium 4.1 mmol/L (3.5-5.1); Sodium 129 mmol/L (135-145); eGFR > 60.00
[2023-11-02] MEDS: BENADRYL 25 MG PO ×2 (05:43→22:07)
[2023-11-02] MEDS: XOPENEX 1.25 MG INHALANT SOLUTION INH ×3 (07:36→19:40)
[2023-11-02] MEDS: ATROVENT NEBULES 0.5 MG INH ×3 (07:36→19:40)
--- NOTE | 2023-11-02 09:04 | W.PN.CARDCBS ---
Today's Communication / Plan
-
Elevated filling pressures on RHC, agree with further IV diuresis, appreciate nephrology input
Cont Coreg - consideration of eventual ARNI/MRA/SGLT2
Impression / Plan
-
PC: Dr. Bailey
Cardiology: None prior to admission
Impression:
Atrial fibrillation 10/29/2023, spontaneously converted to sinus rhythm
Admitted with diarrhea and severe hyponatremia 10/23/23
Acute HFrEF, EF 35-40%
Ischemic versus nonischemic cardiomyopathy, suspect the latter
Moderate to severe MR
LBBB/IVCD
Anemia
Recent admission for right foot osteomyelitis 09/20/23 until 09/27/23
Hyperhidrosis
Echo 10/24/23: EF 35-40%, global hypokinesis, mod to sev MR
Plan:
NICM, HFrEF (EF 35%)
-L/RHC 11/01 with non-obstructive CAD and elevated filling pressures
-Possible LBBB CM
-Agree with IV diuresis, appreciate nephrology input
-Cont Coreg
-Ideally would be on Entresto, aldactone and SGLT2 -Patient is hesitant to add additional meds due to rash she developed earlier this hospitalization
-Will need outpatient cardiology follow up and repeat TTE in 3 months to reassess LVEF
-Paroxysmal atrial fibrillation: In sinus rhythm on amiodarone, would continue to maintain NSR given her CM
Consideration of OAC if anemia resolves - [id number] 2 for HF and sex
-Rash: Per primary service
-Hyponatremia/volume: Per nephrology
Progress Note - Bag Printer
Subjective
Date of Service: November 02, 2023
NAOE. Remains in IMU on 3L NC. No chest pain or SOB.
Objective
Labs:
11/02/23 03:58
11/02/23 03:58
Labs
Hgb 8.5 g/dL (12.0-16.0) L 11/02/23 03:58
Hct 24.9 % (37.0-47.0) L 11/02/23 03:58
Plt Count 418 10^3/uL (130-400) H D 11/02/23 03:58
Sodium 129 mmol/L (135-145) L 11/02/23 03:58
Potassium 4.1 mmol/L (3.5-5.1) 11/02/23 03:58
BUN 14 mg/dl (7-17) 11/02/23 03:58
Creatinine 0.8 mg/dL (0.6-1.0) 11/02/23 03:58
Glucose 93 mg/dl (70-99) 11/02/23 03:58
Troponins
10/31/23 11/01/23
13:48 16:22
Troponin I 0.100 H* 0.108 H*
Vital Signs and I&O:
Vital Signs
Temp Pulse Resp BP Pulse Ox
97.7 F 92 17 150/96 96
11/01/23 23:17 11/02/23 07:48 11/02/23 07:48 11/02/23 06:00 11/02/23 07:48
Vital Signs
Temp Pulse Resp BP Pulse Ox
97.7 F 92 17 150/96 96
11/01/23 23:17 11/02/23 07:48 11/02/23 07:48 11/02/23 06:00 11/02/23 07:48
Intake & Output
10/31/23 11/01/23 11/02/23 11/03/23
06:59 06:59 06:59 06:59
Intake Total 950 / 950 1565 / 1565 240 / 240
Output Total 1800 / 1800
Balance 950 / 950 1565 / 1565 -1560 / -1560
Physical Exam
Physical Exam
Gen: NAD, AAOx3
HEENT: NC/AT, sclera anicteric
Neck: JVD
CV: RRR, NL s1/s2
Lungs: No increased WOB on 3L NC
Abd: S/ND
Ext: + pedal edema
Skin: Warm, dry
Neuro: Non-focal
--- NOTE | 2023-11-02 09:41 | CM ---
Patient with Hx Right foot cellulitis and osteomyelitis on home IV ceftriaxone, with Dx HF, anemia, Diffuse macular rash, s/p heart cath 11/01. O2 3L. Receiving IV Bumex. PT 10/30 recommends HH.
Plan watch for home O2 needs.
Plan home with [facility].
[2023-11-02] MEDS: LOW STRENGTH ASPIRIN 81 MG PO (09:46)
[2023-11-02] MEDS: FLORASTOR 250 MG PO ×2 (09:46→20:58)
[2023-11-02] MEDS: LIDOCAINE 4% PATCH 1 PATCH TOPICAL ×2 (09:48)
[2023-11-02] MEDS: VISBIOME 1 CAP PO (09:49)
[2023-11-02] MEDS: COREG 6.25 MG PO ×2 (09:49→21:01)
[2023-11-02] MEDS: BUMEX 0.5 MG IV ×2 (09:49→19:11)
[2023-11-02] MEDS: PACERONE 200 MG PO ×2 (09:49→21:01)
--- NOTE | 2023-11-02 10:01 | W.PN.ID1 ---
Date of Service
Date of Service: November 02, 2023
Today's Communication
Consider holding gabapentin (new drug started 10/25/28)
ID will sign off.
Assessment / Plan
# Rash progressing/no improvement
- Ceftriaxone discontinued after day 40 (last dose received on 10/30/23)
Unlikely due to ceftriaxone.
- Furosemide held wo improvement.
- Not due to IV iron
- consider holding gabapentin (new drug started 10/25/28)
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
�� �- 09/22 s/p� OR I+D of abscess
- Completed 40d ceftriaxone
# New finding of cardiomyopathy, severe MR
# Pulmonary edema
- cardiac cath: no CAD
# Anemia
- colonoscopy - inflamed colon
# Severe hyponatremia resolving.
Chief Complaint
-: Other (Rash)
Subjective / Review of Systems
+ itching still.
Vital Signs / Physical Exam
Vital Signs
Vital Signs
Temp Pulse Resp BP Pulse Ox
97.7 F 108 17 142/86 96
11/01/23 23:17 11/02/23 09:49 11/02/23 07:48 11/02/23 09:49 11/02/23 07:48
Physical Exam
Constitutional: Comfortable
Eyes: No Conjunctival Hemorrhage and Sclera Anicteric
Cardiovascular: Regular Rate and S1/S2
Pulmonary: Rales (bilateral)
Gastrointestinal: Soft, Non Tender and Non Distended
Extremities: Edema
Skin: Rash (Maculopapular rash lower abdomen to chest, extending to posterior back)
Neurological: AO x 3
Objective Data
Lab Data
Lab Results
11/02/23 03:58
11/02/23 03:58
Estimated Creat Clear 62 ml/min 11/02/23 03:58
Total Bilirubin 0.8 mg/dl (0.2-1.3) 10/23/23 19:01
AST 24 U/L (14-36) 10/23/23 19:01
ALT 58 U/L (0-35) H 10/23/23 19:01
Alkaline Phosphatase 355 U/L (38-126) H 10/23/23 19:01
Most recent labs reviewed.
Micro Results:
10/28/23 11:04 C. difficile GDH Antigen & Toxins - Final
Feces/Stool Negative for toxigenic C.difficile
10/24/23 10:04 Salmonella/Shigella Culture - Final
Feces/Stool No Salmonella, Shigella, Aeromonas or Plesiomonas species
isolated.
Campylobacter Culture - Final
No Campylobacter species isolated.
Shiga Toxin Test - Final
No E. coli Shiga Toxin 1 or 2 detected.
10/25/23 11:26 Respiratory Syncytial Virus Culture - Final
Nasal Swab Negative for Respiratory Syncytial Virus.
A false negative result may be obtained with a specimen
collected early in the acute phase. If symptoms persist, a
new specimen should be tested.
10/25/23 11:26 Influenza Types A & B ([facility]) - Final
Nasal Swab Negative for Influenza A & B, NAAT
Negative results must be combined with clinical observations
and patient history.
Nucleic Acid Amplification test (NAAT)performed on the
[employer] platform.
10/23/23 23:51 MRSA Screen - Final
Nose No Methicillin Resistant Staphylococcus aureus isolated.
10/24/23 10:04 - Final
Feces/Stool Negative for Norovirus GI and GII.
10/24/23 10:04 C. difficile GDH Antigen & Toxins - Final
Feces/Stool Negative for toxigenic C.difficile
Care Review
Plan reviewed with: Physician (Dr. Cason)
--- NOTE | 2023-11-02 12:21 | W.PN.NEPH.PH ---
Today's Communication / Plan
-
cont bumex
Assessment/Plan
-
Assessment:
Severe hyponatremia (roxanne 115)
Severe hypokalemia
hypotension
Diarrheal illness
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
Fibromyalgia HX
HTN not on meds
GERD
Anxiety
Plan:
Hyponatremia seem hypervolemic
s/p L/RHC no obst coronaries but sig high filling pressures, PCWP of 39
given rash avoiding lasix
cont bumex 0.5 daily, extra dose if needed
noted events 11/01 acute sob and pulm edema
follow bladder scan had 1lit SC yesterday
d/c salt tab
maintain FR 40 ounces/day
stop IV fe
labs in am
d/w pt in detail
-
-
Date of Service: November 02, 2023
CC / HPI / ROS
-
Chief Complaint:
hyponatremia
History of Present Illness:
hyponatremia, sodium no cahnge at 129
BP stable, infact high end
acute sob with pulm edema on 11/01 afternoon
s/p total of 1mg bumex and improves symp, still on O2
no fever
hgb stable
Review of Systems:
no cp or sob at rest
on O2
rash still present not bad as before
Labs
-
Labs:
WBC 8.9 10^3/uL (4.8-10.8) 11/02/23 03:58
RBC 2.59 10^6/uL (4.20-5.40) L 11/02/23 03:58
Hgb 8.5 g/dL (12.0-16.0) L 11/02/23 03:58
Hct 24.9 % (37.0-47.0) L 11/02/23 03:58
Plt Count 418 10^3/uL (130-400) H D 11/02/23 03:58
Sodium 129 mmol/L (135-145) L 11/02/23 03:58
Potassium 4.1 mmol/L (3.5-5.1) 11/02/23 03:58
Chloride 101 mmol/L (98-107) 11/02/23 03:58
Carbon Dioxide 24 mmol/L (22-30) 11/02/23 03:58
BUN 14 mg/dl (7-17) 11/02/23 03:58
Creatinine 0.8 mg/dL (0.6-1.0) 11/02/23 03:58
eGFR > 60.00 11/02/23 03:58
Glucose 93 mg/dl (70-99) 11/02/23 03:58
Calcium 9.2 mg/dl (8.4-10.2) 11/02/23 03:58
Mst-C-Xebiutmrxbm Pept 59634 pg/ml 10/24/23 12:13
Albumin 2.8 g/dl (3.5-5.0) L 10/23/23 19:01
Physical Exam
-
Vital Signs:
Vital Signs
Temp Pulse Resp BP Pulse Ox
98.2 F 108 17 142/86 96
11/02/23 07:30 11/02/23 09:49 11/02/23 07:48 11/02/23 09:49 11/02/23 07:48
Cardiovascular:: Regular rate and rhythm
Respiratory:: Bilateral: CTA (decreased rales)
Lung Excursion:: Normal
Abdomen:: Nontender and Soft
Extremity Edema:: +1: Bilateral:
Marquez Catheter: No
--- NOTE | 2023-11-02 12:52 | W.PN.HOSP.TC ---
Today's Communication/Plan
-
Monitor vitals
Plan
Continue with diuresis
Yesterday was placed on BiPAP, now on 5 L. Wean oxygen as tolerated
Monitor urine output
Hold gabapentin
Assessment / Plan
Assessment / Plan
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 She was admitted Sep 2023 for foot infection, underwent incision and drainage and had been on IV antibiotic Ceftriaxone.
ID called in for Flagyl which made her ill with nausea and she has been having diarrhea.
She follows with her family doctor and physician general internal medicine for wound care.
A/P:
# Severe hyponatremia - suspect multifactorial due to hypovolemia from poor PO intake and diarrhea, and SIADH component
s/p NSS 1L bolus in ER
s/p 3% NSS per renal
Monitor sodium. Samsca given 10/29.
TSH 1.24, random cortisol level 11.7
Renal on board
Non-MT related troponin elevation
# Severe hypokalemia
resolved after repletion
# New acute systolic CHF
# Acute hypoxic respiratory failure 11/01 2/2 flash pulmonary edema; was placed on bipap; now on 5L; wean o2 as tolerrated
Placed on 2L NC, weaned to RA, pt NOT on home O2
CXR with Mild acute interstitial and alveolar cardiogenic pulmonary edema. Minimal bilateral pleural effusions.
BNP 44624
Echo: EF 35-40%, Global hypokinesis. Moderate to severe mitral regurgitation.�
s/p IV Lasix; lasix on hold due to possible allergy; cath 11/01 with increase wedge pressure suggestive of fluid overload; started bumex
Started ASA, Coreg with holding parameter
cscope 10/31 with patchy mild inflammation. Biopsies were taken. Rule out inflammatory bowel disease. Per GI okay for low residue diet. Patient to follow-up with GI outpatient.
Atrial fibrillation 10/29, spontaneously converted to normal sinus rhythm
now on PO amio
Diffuse macular rash
slowly improving
ID following
Unlikely due to antibiotics however. Will discontinue and monitor since okay with infectious disease. Rash still has not improved so we will hold gabapentin
# Acute on chronic anemia
iron panel, B12, folate levels acceptable
transfused 1 unit PRBC
s/p EGD eval prior to cardiac cath 10/27: EGD was normal.� Her colonoscopy was in 2018 which showed small adenoma and diverticulosis.� She is due for colonoscopy which can be arranged as OP.� She should complete colonoscopy before we can give
clearance to begin anti-platelet therapy, however the risk of bleeding lesion is low and can begin anti-platelet therapy if cardiology feels patient can not wait until OP colonoscopy is completed.
# Diarrheal illness, likely ABx related
now slowly improving
She had been off Laxatives since 09/27/23
C Diff/norovirus/stool Cx negative from admission, repeat C diff again negative
COVID negative
stopped PO PPI, stopped Miralax
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
Was recommended by ID to cont IV antibiotic Ceftriaxone through�11/01/23. Stop now due to rash. ID following
PT OT recc HH
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
Monitor
# Cough, intermittent; likely related to acute CHF
COVID/ Flu/RSV were negative
Tessalon PRN for cough
# Fibromyalgia HX, Stable
Hold Lexapro/SSRI�due to current severe hyponatremia
Added lidocaine patch for shoulder and lower back
# Insomnia
Cont TAX ACCOUNTING MANAGER Ambien PRN
DVT Prophylaxis:�Lovenox SQ
Full code
General: Well Developed, Well Nourished, Comfortable and Conversant
Respiratory: Clear to Auscultation and Non Labored Respirations; Negative Wheezes or Accessory Resp Muscle Use
Cardiac: Regular Rhythm and S1/S2
GI: Soft and Nontender
Musculoskeletal: No Edema
Skin: Warm, Dry and Other (R foot with dressing); Negative Rash
Neuro: Awake
Psych: Calm and Intact Judgement/Insight
I spent a total of 54 minutes with the patient or on the floor. More than 50% of this time involved counseling and coordination of care.
Anticipated Discharge: > 48 hours
Subjective/Interval History
-
Date of Service: November 02, 2023
denies pain
Objective Data
-
Labs:
Laboratory Results
11/02/23
03:58
WBC 8.9
Hgb 8.5 L
Hct 24.9 L
Plt Count 418 H D
Sodium 129 L
Potassium 4.1
Chloride 101
Carbon Dioxide 24
BUN 14
Creatinine 0.8
Glucose 93
Calcium 9.2
Vital Signs:
Vital Signs
Temp Pulse Resp BP Pulse Ox
98.2 F 108 17 142/86 96
11/02/23 07:30 11/02/23 09:49 11/02/23 07:48 11/02/23 09:49 11/02/23 07:48
I&O
11/01/23 11/02/23 11/03/23
06:59 06:59 06:59
Intake Total 1565 / 1565 240 / 240
Output Total 1800 / 1800 150 / 150
Balance 1565 / 1565 -1560 / -1560 -150 / -150
--- NOTE | 2023-11-02 15:19 | VNURNOTE ---
Home Health Liaison met with patient at 1500 with friend Pamela Sultana to discuss [facility] nurse/therapy, visits, schedule and homebound status. Patient is agreeable and understands that visits at home will be 2-3 x per week to assess and teach medical
management. Patient has a scale and is able to log a daily weight.
[facility] brochure provided with contact information. Patient is aware and agreeable that [facility] will contact her for start of care in 1-2 days after discharge from .
[facility] referral updated in [facility].
[2023-11-02] MEDS: TYLENOL 650 MG PO ×2 (16:09→21:28)
[2023-11-02] MEDS: TESSALON PERLES 200 MG PO ×2 (17:36→21:00)
[2023-11-02] MEDS: LOVENOX 40 MG SC (17:36)
--- NOTE | 2023-11-02 18:32 | PTCARENOTE ---
Pt total UOP was 550 mls today, PVR checked, no urine noted in bladder. LE edema increased to thighs. Dr. Cason notifiied, additional dose of Bumex ordered. Pt remains stable, o2 sat 95% on 2L.
[2023-11-02] MEDS: AMBIEN 5 MG PO (22:33)
[2023-11-03] VITALS (8 sets, daily range): BP systolic 116–159; BP diastolic 76–113; BMI 24.5
[2023-11-03] MEDS: TESSALON PERLES 200 MG PO ×2 (03:59→18:40)
--- NOTE | 2023-11-03 04:39 | PTCARENOTE ---
Addendum entered by Eitan Hand RN 11/03/23 04:44:
Respiration rates are not being correctly monitored on the tele machine. Respirations have been in the 20s this shift.
Original Note:
Patient reports being able to sleep. request to use bipap overnight from about [id number]. prn Tylenol, Tessalon perls, ambien and Benadryl utilized overnight per pt request. Up to BR/BSC. Voided about 800mL overnight. No BM. States her foot is
burning since she is not receiving gabapentin. Rash appears the same as compared to the start of my shift. VSS. tele showing NSR/ST with BBB. PICC line patent, dressing intact. Call ochoa and tray tables left within reach.
[2023-11-03 04:52] LABS: % Basophils 1.2 % (0-2); % Eosinophils 2.5 % (0-6); % Immature Granulocytes 0.6 % (0-0.5); % Lymphocytes 28.2 % (20.5-51.1); % Monocytes 7.7 % (1.7-9.3); % Neutrophils 59.8 % (42.2-75.2); Absolute Basophils 0.1 10^3/uL (0-0.2); Absolute Eosinophils 0.1 10^3/uL (0-0.7); Absolute Lymphocytes 1.5 10^3/uL (1.2-3.4); Absolute Monocytes 0.4 10^3/uL (0.1-0.6); Absolute Neutrophils 3.1 10^3/uL (1.4-6.5); Hematocrit 22.6 % (37.0-47.0); Mean Corp Hgb Conc. 35.4 g/dL (33.0-37.0); Mean Corpuscular Hgb 32.8 pg (27.0-31.0); Mean Corpuscular Volume 92.6 fL (81.0-99.0); Mean Platelet Volume 8.9 fL (7.4-10.4); Nucleated Red Blood Cells % 0 %; Platelet Count 388 10^3/uL (130-400); Red Blood Cell Count 2.44 10^6/uL (4.20-5.40); Red Cell Dist. Width 13.7 % (11.5-14.5); White Blood Cell Count 5.2 10^3/uL (4.8-10.8)
[2023-11-03 05:18] LABS: Blood Urea Nitrogen 14 mg/dl (7-17); Carbon Dioxide 23 mmol/L (22-30); Chloride 97 mmol/L (98-107); Estimated Creatinine Clearance 71 ml/min; Glucose 89 mg/dl (70-99); Potassium 3.3 mmol/L (3.5-5.1); Sodium 130 mmol/L (135-145); eGFR > 60.00
[2023-11-03] MEDS: XOPENEX 1.25 MG INHALANT SOLUTION INH ×3 (07:40→19:20)
[2023-11-03] MEDS: ATROVENT NEBULES 0.5 MG INH ×3 (07:40→19:20)
[2023-11-03] MEDS: LIDOCAINE 4% PATCH 1 PATCH TOPICAL (09:08)
[2023-11-03] MEDS: FLORASTOR 250 MG PO ×2 (09:10→20:37)
[2023-11-03] MEDS: KCL 40 MEQ PO (09:10)
[2023-11-03] MEDS: VISBIOME 1 CAP PO (09:11)
[2023-11-03] MEDS: LOW STRENGTH ASPIRIN 81 MG PO (09:11)
[2023-11-03] MEDS: COREG 6.25 MG PO ×2 (09:12→20:38)
[2023-11-03] MEDS: PACERONE 200 MG PO ×2 (09:13→20:37)
[2023-11-03] MEDS: BUMEX 0.5 MG IV (09:14)
[2023-11-03] MEDS: LIDOCAINE 4% PATCH TOPICAL (10:52)
--- NOTE | 2023-11-03 11:51 | W.PN.NEPH.PH ---
Today's Communication / Plan
-
po bumex
Assessment/Plan
-
Assessment:
Severe hyponatremia (roxanne 115)
Severe hypokalemia
hypotension
Diarrheal illness
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
Fibromyalgia HX
HTN not on meds
GERD
Anxiety
Plan:
replete K
convert to po bumex
follow BMP
-
-
Date of Service: November 03, 2023
CC / HPI / ROS
-
Chief Complaint:
hyponatremia
History of Present Illness:
Na up to 130
BP stable
diuresing with bumex
no fever
hgb stable
Review of Systems:
no cp or sob at rest
on O2
Labs
-
Labs:
WBC 5.2 10^3/uL (4.8-10.8) 11/03/23 04:05
RBC 2.44 10^6/uL (4.20-5.40) L 11/03/23 04:05
Hgb 8.0 g/dL (12.0-16.0) L 11/03/23 04:05
Hct 22.6 % (37.0-47.0) L 11/03/23 04:05
Plt Count 388 10^3/uL (130-400) 11/03/23 04:05
Sodium 130 mmol/L (135-145) L 11/03/23 04:05
Potassium 3.3 mmol/L (3.5-5.1) L 11/03/23 04:05
Chloride 97 mmol/L (98-107) L 11/03/23 04:05
Carbon Dioxide 23 mmol/L (22-30) 11/03/23 04:05
BUN 14 mg/dl (7-17) 11/03/23 04:05
Creatinine 0.7 mg/dL (0.6-1.0) 11/03/23 04:05
eGFR > 60.00 11/03/23 04:05
Glucose 89 mg/dl (70-99) 11/03/23 04:05
Calcium 9.0 mg/dl (8.4-10.2) 11/03/23 04:05
Uvc-H-Cdrldtjbqhi Pept 62226 pg/ml 10/24/23 12:13
Albumin 2.8 g/dl (3.5-5.0) L 10/23/23 19:01
Physical Exam
-
Vital Signs:
Vital Signs
Temp Pulse Resp BP Pulse Ox
98.3 F 95 16 137/85 96
11/03/23 11:45 11/03/23 09:12 11/03/23 07:47 11/03/23 09:12 11/03/23 08:00
Cardiovascular:: Regular rate and rhythm
Respiratory:: Bilateral: Coarse
Lung Excursion:: Normal
Abdomen:: Nontender and Soft
Bowel Sounds:: Normal
Extremity Edema:: +2: Bilateral:
--- NOTE | 2023-11-03 12:00 | W.PN.HOSP.TC ---
Today's Communication/Plan
-
Monitor vital signs and see plan
Monitor sodium
Continue with Bumex
Wean oxygen as tolerated
PT/OT
Monitor rash
Replete potassium
Assessment / Plan
Assessment / Plan
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 She was admitted Sep 2023 for foot infection, underwent incision and drainage and had been on IV antibiotic Ceftriaxone.
ID called in for Flagyl which made her ill with nausea and she has been having diarrhea.
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
A/P:
# Severe hyponatremia - suspect multifactorial due to hypovolemia from poor PO intake and diarrhea, and SIADH component
s/p 3% NSS per renal
Monitor sodium. Samsca given 10/29.
TSH 1.24, random cortisol level 11.7
Renal on board
now on PO bumex
Non-[place] related troponin elevation
# hypokalemia
replete
# New acute systolic CHF
# Acute hypoxic respiratory failure 11/01 2/2 flash pulmonary edema; was placed on bipap; now on 1-2L; wean o2 as tolerrated
Placed on 2L NC, weaned to RA, pt NOT on home O2
CXR with Mild acute interstitial and alveolar cardiogenic pulmonary edema. Minimal bilateral pleural effusions.
BNP 60502
Echo: EF 35-40%, Global hypokinesis. Moderate to severe mitral regurgitation.�
s/p IV Lasix; lasix on hold due to possible allergy; cath 11/01 with increase wedge pressure suggestive of fluid overload; started bumex
Started ASA, Coreg with holding parameter
cscope 10/31 with patchy mild inflammation. Biopsies were taken. Rule out inflammatory bowel disease. Per GI okay for low residue diet. Patient to follow-up with GI outpatient.
Atrial fibrillation 10/29, spontaneously converted to normal sinus rhythm
now on PO amio
Diffuse macular rash
slowly improving
ID following
Unlikely due to antibiotics however. Will discontinue and monitor since okay with infectious disease. Rash still has not improved so we will hold gabapentin
# Acute on chronic anemia
iron panel, B12, folate levels acceptable
transfused 1 unit PRBC
s/p EGD eval prior to cardiac cath 10/27: EGD was normal.� Her colonoscopy was in 2018 which showed small adenoma and diverticulosis.� She is due for colonoscopy which can be arranged as OP.� She should complete colonoscopy before we can give
clearance to begin anti-platelet therapy, however the risk of bleeding lesion is low and can begin anti-platelet therapy if cardiology feels patient can not wait until OP colonoscopy is completed.
# Diarrheal illness, likely ABx related
now slowly improving
She had been off Laxatives since 09/27/23
C Diff/norovirus/stool Cx negative from admission, repeat C diff again negative
COVID negative
stopped PO PPI, stopped Miralax
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
Was recommended by ID to cont IV antibiotic Ceftriaxone through�11/01/23. Stopped now due to rash. ID following
PT OT recc HH
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
Monitor
# Cough, intermittent; likely related to acute CHF
COVID/ Flu/RSV were negative
Tessalon PRN for cough
# Fibromyalgia HX, Stable
Hold Lexapro/SSRI�due to current severe hyponatremia
Added lidocaine patch for shoulder and lower back
# Insomnia
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
DVT Prophylaxis:�Lovenox SQ
Full code
General: Well Developed, Well Nourished, Comfortable and Conversant
Respiratory: Clear to Auscultation and Non Labored Respirations; Negative Wheezes or Accessory Resp Muscle Use
Cardiac: Regular Rhythm and S1/S2
GI: Soft and Nontender
Musculoskeletal: No Edema
Skin: Warm, Dry and Other (R foot with dressing); Negative Rash
Neuro: Awake
Psych: Calm and Intact Judgement/Insight
Anticipated Discharge: 24 - 48 hours
Subjective/Interval History
-
Date of Service: November 03, 2023
denies pain
Objective Data
-
Labs:
Laboratory Results
11/03/23
04:05
WBC 5.2
Hgb 8.0 L
Hct 22.6 L
Plt Count 388
Sodium 130 L
Potassium 3.3 L
Chloride 97 L
Carbon Dioxide 23
BUN 14
Creatinine 0.7
Glucose 89
Calcium 9.0
Vital Signs:
Vital Signs
Temp Pulse Resp BP Pulse Ox
98.3 F 95 16 137/85 96
11/03/23 11:45 11/03/23 09:12 11/03/23 07:47 11/03/23 09:12 11/03/23 08:00
I&O
11/02/23 11/03/23 11/04/23
06:59 06:59 06:59
Intake Total 240 / 240 1240 / 1240
Output Total 1800 / 1800 1350 / 1350
Balance -1560 / -1560 -110 / -110
--- NOTE | 2023-11-03 13:51 | W.PN.CARDCBS ---
Today's Communication / Plan
-
Stable cardiology status for discharge
Will sign off, call with questions
Impression / Plan
-
PC: Dr. Bailey
Cardiology: None prior to admission
Impression:
Atrial fibrillation 10/29/2023, spontaneously converted to sinus rhythm
Admitted with diarrhea and severe hyponatremia 10/23/23
Acute HFrEF, EF 35-40%
Ischemic versus nonischemic cardiomyopathy, Possible LBBB CM
Moderate to severe MR
LBBB/IVCD
Anemia
Recent admission for right foot osteomyelitis 09/20/23 until 09/27/23
Hyperhidrosis
Hyponatremia
Echo 10/24/23: EF 35-40%, global hypokinesis, mod to sev MR
L/RHC 11/01 with non-obstructive CAD and elevated filling pressures
Plan:
She appears stable from cardiology viewpoint
Probably she has been managing diuretics and changed to p.o. Bumex
-Ideally would be on Entresto, aldactone and SGLT2 -Patient is hesitant to add additional meds due to rash she developed earlier this hospitalization and also had been on midodrine for hypotension which has been stopped
Will need outpatient cardiology follow up and repeat TTE in 3 months to reassess LVEF
Paroxysmal atrial fibrillation: In sinus rhythm on amiodarone, would continue to maintain NSR given her CM. Would like to stop amiodarone at some point given young age
Consideration of OAC at some point if anemia remains stable- [id number] 2 for HF and sex. cont asa
Progress Note - Nursery Hand
Subjective
Date of Service: November 03, 2023
She is without complaints
Objective
Labs:
11/03/23 04:05
11/03/23 04:05
Labs
Hgb 8.0 g/dL (12.0-16.0) L 11/03/23 04:05
Hct 22.6 % (37.0-47.0) L 11/03/23 04:05
Plt Count 388 10^3/uL (130-400) 11/03/23 04:05
Sodium 130 mmol/L (135-145) L 11/03/23 04:05
Potassium 3.3 mmol/L (3.5-5.1) L 11/03/23 04:05
BUN 14 mg/dl (7-17) 11/03/23 04:05
Creatinine 0.7 mg/dL (0.6-1.0) 11/03/23 04:05
Glucose 89 mg/dl (70-99) 11/03/23 04:05
Troponins
10/31/23 11/01/23
13:48 16:22
Troponin I 0.100 H* 0.108 H*
Vital Signs and I&O:
Vital Signs
Temp Pulse Resp BP Pulse Ox
98.3 F 95 16 137/85 96
11/03/23 11:45 11/03/23 09:12 11/03/23 07:47 11/03/23 09:12 11/03/23 08:00
Vital Signs
Temp Pulse Resp BP Pulse Ox
98.3 F 95 16 137/85 96
11/03/23 11:45 11/03/23 09:12 11/03/23 07:47 11/03/23 09:12 11/03/23 08:00
Intake & Output
11/01/23 11/02/23 11/03/23 11/04/23
06:59 06:59 06:59 06:59
Intake Total 1565 / 1565 240 / 240 1240 / 1240
Output Total 1800 / 1800 1350 / 1350
Balance 1565 / 1565 -1560 / -1560 -110 / -110
Physical Exam
Physical Exam
General: Well developed, well nourished in NAD.
Neck: Supple, no JVD, HJR, carotids +2 B/L, no bruits bilaterally.
Heart: Non displaced PMI, RRR, no murmurs, No S3, S4, no rubs.
Lungs: Clear to auscultation bilaterally, no wheeze, rhonchi, rubs bilaterally,
normal expiratory phase.
Extremities: No clubbing, cyanosis or edema bilaterally.
Neuro: Grossly nonfocal, awake, alert and oriented x3.
[2023-11-03] MEDS: ZOFRAN 4 MG IV (14:05)
--- NOTE | 2023-11-03 16:35 | PTCARENOTE ---
Pt in [place] getting washed up, called me in states her foot stinks what can I do for her R foot, pt told i do not have an order for anything , foot looks calloused. I told her to leave her foot alone. Tech answered call gabriela pt is digging in her r
foot with a qtip.
[2023-11-03] MEDS: BUMEX 0.5 MG PO (16:45)
[2023-11-03] MEDS: LOVENOX 40 MG SC (17:24)
[2023-11-03] MEDS: TYLENOL 650 MG PO (20:37)
[2023-11-03] MEDS: BENADRYL 25 MG PO (20:37)
[2023-11-03] MEDS: ULTRAM 25 MG PO (21:42)
[2023-11-03] MEDS: AMBIEN 5 MG PO (22:47)
[2023-11-04] VITALS (9 sets, daily range): BP systolic 108–148; BP diastolic 61–87; BMI 25.3; BMI 25.2
[2023-11-04] MEDS: TYLENOL 650 MG PO ×3 (04:38→17:34)
[2023-11-04] MEDS: TESSALON PERLES 200 MG PO ×2 (05:00→21:42)
[2023-11-04 05:27] LABS: % Basophils 1.8 % (0-2); % Eosinophils 1.6 % (0-6); % Immature Granulocytes 0.8 % (0-0.5); % Neutrophils 61.8 % (42.2-75.2); Absolute Basophils 0.1 10^3/uL (0-0.2); Absolute Eosinophils 0.1 10^3/uL (0-0.7); Absolute Lymphocytes 1.3 10^3/uL (1.2-3.4); Absolute Monocytes 0.4 10^3/uL (0.1-0.6); Absolute Neutrophils 3.1 10^3/uL (1.4-6.5); Hematocrit 22.2 % (37.0-47.0); Hemoglobin 7.7 g/dL (12.0-16.0); Mean Corp Hgb Conc. 34.7 g/dL (33.0-37.0); Mean Corpuscular Hgb 32.4 pg (27.0-31.0); Mean Corpuscular Volume 93.3 fL (81.0-99.0); Mean Platelet Volume 8.7 fL (7.4-10.4); Nucleated Red Blood Cells % 0 %; Platelet Count 368 10^3/uL (130-400); Red Blood Cell Count 2.38 10^6/uL (4.20-5.40); Red Cell Dist. Width 14.1 % (11.5-14.5)
[2023-11-04 05:55] LABS: Blood Urea Nitrogen 13 mg/dl (7-17); Calcium 8.5 mg/dl (8.4-10.2); Carbon Dioxide 28 mmol/L (22-30); Chloride 99 mmol/L (98-107); Estimated Creatinine Clearance 62 ml/min; Glucose 93 mg/dl (70-99); Potassium 3.7 mmol/L (3.5-5.1); Sodium 130 mmol/L (135-145); eGFR > 60.00
--- NOTE | 2023-11-04 05:55 | PTCARENOTE ---
Pt c/o right foot nerve pain and burning sensation. Tylenol and tramadol provided with good relief. Pt able to sleep. Declined bipap. 1L NC in place, Sp02 decreases to 88% on RA while sleep. Tele showing NSR/ST w/ BBB. yanira Cox, and
haily provided per pt request. 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 Rash improving. No gi/gu complaints. Denies nausea/vomiting/ lightheadedness/ dizziness/palpitations. Call ochoa within reach. Pt calls appropriately.
[2023-11-04] MEDS: ATROVENT NEBULES 0.5 MG INH ×2 (07:45→13:46)
[2023-11-04] MEDS: XOPENEX 1.25 MG INHALANT SOLUTION INH ×2 (07:45→13:46)
[2023-11-04] MEDS: COREG 6.25 MG PO ×2 (09:32→21:43)
[2023-11-04] MEDS: BUMEX 0.5 MG PO (09:32)
[2023-11-04] MEDS: LOW STRENGTH ASPIRIN 81 MG PO (09:32)
[2023-11-04] MEDS: LIDOCAINE 4% PATCH TOPICAL ×2 (09:36)
[2023-11-04] MEDS: FLORASTOR PO (09:36)
[2023-11-04] MEDS: VISBIOME PO (09:37)
[2023-11-04] MEDS: PACERONE 200 MG PO ×2 (09:37→21:42)
--- NOTE | 2023-11-04 11:13 | W.PN.NEPH.PH ---
Today's Communication / Plan
-
bumex
Assessment/Plan
-
Assessment:
Severe hyponatremia (roxanne 115)
Severe hypokalemia
hypotension
Diarrheal illness
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
Fibromyalgia HX
HTN not on meds
GERD
Anxiety
Plan:
po bumex may use prn as OP
follow BMP
-
-
Date of Service: November 04, 2023
CC / HPI / ROS
-
Chief Complaint:
hyponatremia
History of Present Illness:
Na stable at 130
BP stable
diuresing with bumex
no fever
hgb stable
Review of Systems:
no cp or sob at rest
on O2
edema improved
Labs
-
Labs:
WBC 5.0 10^3/uL (4.8-10.8) 11/04/23 04:55
RBC 2.38 10^6/uL (4.20-5.40) L 11/04/23 04:55
Hgb 7.7 g/dL (12.0-16.0) L 11/04/23 04:55
Hct 22.2 % (37.0-47.0) L 11/04/23 04:55
Plt Count 368 10^3/uL (130-400) 11/04/23 04:55
Sodium 130 mmol/L (135-145) L 11/04/23 04:54
Potassium 3.7 mmol/L (3.5-5.1) 11/04/23 04:54
Chloride 99 mmol/L (98-107) 11/04/23 04:54
Carbon Dioxide 28 mmol/L (22-30) 11/04/23 04:54
BUN 13 mg/dl (7-17) 11/04/23 04:54
Creatinine 0.8 mg/dL (0.6-1.0) 11/04/23 04:54
eGFR > 60.00 11/04/23 04:54
Glucose 93 mg/dl (70-99) 11/04/23 04:54
Calcium 8.5 mg/dl (8.4-10.2) 11/04/23 04:54
Okw-C-Bpkksiagpmj Pept 19688 pg/ml 10/24/23 12:13
Albumin 2.8 g/dl (3.5-5.0) L 10/23/23 19:01
Physical Exam
-
Vital Signs:
Vital Signs
Temp Pulse Resp BP Pulse Ox
97.7 F 93 24 128/83 93
11/04/23 11:00 11/04/23 07:49 11/04/23 07:49 11/04/23 04:54 11/04/23 07:49
Cardiovascular:: Regular rate and rhythm
Respiratory:: Bilateral: Coarse
Lung Excursion:: Normal
Abdomen:: Nontender and Soft
Bowel Sounds:: Normal
Extremity Edema:: None: Bilateral:
--- NOTE | 2023-11-04 12:38 | W.PN.HOSP.TC ---
Today's Communication/Plan
-
Monitor vital signs see plan
Continue Bumex
Monitor sodium
Home O2 evaluation today
Discharge planning
downgrade to tele
Assessment / Plan
Assessment / Plan
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 She was admitted Sep 2023 for foot infection, underwent incision and drainage and had been on IV antibiotic Ceftriaxone.
ID called in for Flagyl which made her ill with nausea and she has been having diarrhea.
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
A/P:
# Severe hyponatremia - suspect multifactorial due to hypovolemia from poor PO intake and diarrhea, and SIADH component
s/p 3% NSS per renal
Monitor sodium. Samsca given 10/29.
TSH 1.24, random cortisol level 11.7
Renal on board
now on PO bumex
Non-[place] related troponin elevation
# hypokalemia
replete
# New acute systolic CHF
# Acute hypoxic respiratory failure 11/01 2/2 flash pulmonary edema; was placed on bipap; now on 1-2L; wean o2 as tolerated. home o2 eval
Placed on 2L NC, weaned to RA, pt NOT on home O2
CXR with Mild acute interstitial and alveolar cardiogenic pulmonary edema. Minimal bilateral pleural effusions.
BNP 16875
Echo: EF 35-40%, Global hypokinesis. Moderate to severe mitral regurgitation.�
s/p IV Lasix; lasix on hold due to possible allergy; cath 11/01 with increase wedge pressure suggestive of fluid overload; started bumex
Started ASA, Coreg with holding parameter
cscope 10/31 with patchy mild inflammation. Biopsies were taken. Rule out inflammatory bowel disease. Per GI okay for low residue diet. Patient to follow-up with GI outpatient.
Atrial fibrillation 10/29, spontaneously converted to normal sinus rhythm
now on PO amio
Diffuse macular rash
slowly improving
ID following
Unlikely due to antibiotics however. Will discontinue and monitor since okay with infectious disease. Rash still has not improved so we will hold gabapentin
# Acute on chronic anemia
iron panel, B12, folate levels acceptable
transfused 1 unit PRBC
s/p EGD eval prior to cardiac cath 10/27: EGD was normal.� Her colonoscopy was in 2018 which showed small adenoma and diverticulosis.� She is due for colonoscopy which can be arranged as OP.� She should complete colonoscopy before we can give
clearance to begin anti-platelet therapy, however the risk of bleeding lesion is low and can begin anti-platelet therapy if cardiology feels patient can not wait until OP colonoscopy is completed.
# Diarrheal illness, likely ABx related
now slowly improving
She had been off Laxatives since 09/27/23
C Diff/norovirus/stool Cx negative from admission, repeat C diff again negative
COVID negative
stopped PO PPI, stopped Miralax
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
Was recommended by ID to cont IV antibiotic Ceftriaxone through�11/01/23. Stopped now due to rash. ID following
PT OT recc HH
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
Monitor
# Cough, intermittent; likely related to acute CHF
COVID/ Flu/RSV were negative
Tessalon PRN for cough
# Fibromyalgia HX, Stable
Hold Lexapro/SSRI�due to current severe hyponatremia
Added lidocaine patch for shoulder and lower back
# Insomnia
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
DVT Prophylaxis:�Lovenox SQ
Full code
General: Well Developed, Well Nourished, Comfortable and Conversant
Respiratory: Clear to Auscultation and Non Labored Respirations; Negative Wheezes or Accessory Resp Muscle Use
Cardiac: Regular Rhythm and S1/S2
GI: Soft and Nontender
Musculoskeletal: No Edema
Skin: Warm, Dry and Other (R foot with dressing); Negative Rash
Neuro: Awake
Psych: Calm and Intact Judgement/Insight
Anticipated Discharge: Within 24 hours
Subjective/Interval History
-
Date of Service: November 04, 2023
denies nausea
Objective Data
-
Labs:
Laboratory Results
11/04/23 11/04/23
04:54 04:55
WBC 5.0
Hgb 7.7 L
Hct 22.2 L
Plt Count 368
Sodium 130 L
Potassium 3.7
Chloride 99
Carbon Dioxide 28
BUN 13
Creatinine 0.8
Glucose 93
Calcium 8.5
Vital Signs:
Vital Signs
Temp Pulse Resp BP Pulse Ox
97.7 F 93 24 128/83 93
11/04/23 11:00 11/04/23 07:49 11/04/23 07:49 11/04/23 04:54 11/04/23 07:49
I&O
11/03/23 11/04/23 11/05/23
06:59 06:59 06:59
Intake Total 1240 / 1240 240 / 240 380 / 380
Output Total 1350 / 1350 800 / 800
Balance -110 / -110 -560 / -560 380 / 380
--- NOTE | 2023-11-04 13:53 | RESPNOTE ---
Ambulation pulse ox done at this time
Patient Resting RA-92%
Patient walked approx 330FT SATS staying 93-96% for duration of walk.
Pt using walker for walk, slow and steady but no distress or SOB noted.
--- NOTE | 2023-11-04 16:03 | PTCARENOTE ---
Medicated patient with tylenol for bilateral LE's neuropathy. Patient ambulating with right Darco boot. Wound on bottom of right foot open to air. Patient sp02 mid 90's on room air. Ambulating pulse ox good, patient will not qualify for home 02.
--- NOTE | 2023-11-04 16:16 | PTCARENOTE ---
Report given to Emilie MARTINEZ. Patient transferred to 4th floor RM 430 on stretcher. All belongings with the patient.
[2023-11-04] MEDS: LOVENOX SC ×2 (17:29→17:31)
[2023-11-04] MEDS: BENADRYL 25 MG PO (17:33)
--- NOTE | 2023-11-04 18:40 | PTCARENOTE ---
transferred from IMU. AAOx3, anxious at times, ambulates with stand by assist and a walker. VSS, on tele, NSR with BBB. +1 b/l ankle and feet edema, on RA, DIEZ and shallow. continent to b/b. makes needs known. instructed on fall prevention and
oriented to room.
[2023-11-04] MEDS: LOVENOX 40 MG SC (18:50)
[2023-11-04] MEDS: ULTRAM 25 MG PO (21:37)
[2023-11-04] MEDS: FLORASTOR 250 MG PO (21:43)
[2023-11-04] MEDS: AMBIEN 5 MG PO (23:28)
[2023-11-05 03:00] VITALS: BP 124/81
[2023-11-05] MEDS: TESSALON PERLES 200 MG PO ×3 (04:04→23:19)
[2023-11-05 06:00] VITALS: BMI 25.0
[2023-11-05 07:34] LABS: % Eosinophils 0.9 % (0-6); % Immature Granulocytes 0.4 % (0-0.5); % Lymphocytes 14.1 % (20.5-51.1); % Monocytes 3.5 % (1.7-9.3); % Neutrophils 80.1 % (42.2-75.2); Absolute Basophils 0.1 10^3/uL (0-0.2); Absolute Eosinophils 0.1 10^3/uL (0-0.7); Absolute Lymphocytes 1.4 10^3/uL (1.2-3.4); Absolute Monocytes 0.4 10^3/uL (0.1-0.6); Absolute Neutrophils 8.2 10^3/uL (1.4-6.5); Hematocrit 26.7 % (37.0-47.0); Hemoglobin 9.2 g/dL (12.0-16.0); Mean Corp Hgb Conc. 34.5 g/dL (33.0-37.0); Mean Corpuscular Hgb 32.5 pg (27.0-31.0); Mean Corpuscular Volume 94.3 fL (81.0-99.0); Mean Platelet Volume 8.7 fL (7.4-10.4); Nucleated Red Blood Cells % 0 %; Platelet Count 428 10^3/uL (130-400); Red Blood Cell Count 2.83 10^6/uL (4.20-5.40); Red Cell Dist. Width 14.6 % (11.5-14.5); White Blood Cell Count 10.2 10^3/uL (4.8-10.8)
[2023-11-05 07:35] VITALS: BP 128/80
[2023-11-05 07:49] LABS: Blood Urea Nitrogen 11 mg/dl (7-17); Calcium 9.2 mg/dl (8.4-10.2); Carbon Dioxide 27 mmol/L (22-30); Chloride 97 mmol/L (98-107); Estimated Creatinine Clearance 62 ml/min; Glucose 97 mg/dl (70-99); Sodium 131 mmol/L (135-145); eGFR > 60.00
[2023-11-05] MEDS: LIDOCAINE 4% PATCH 1 PATCH TOPICAL ×2 (09:06→09:13)
[2023-11-05] MEDS: LOW STRENGTH ASPIRIN 81 MG PO (09:07)
[2023-11-05] MEDS: BUMEX 0.5 MG PO (09:07)
[2023-11-05] MEDS: PACERONE 200 MG PO ×2 (09:08→20:33)
[2023-11-05] MEDS: COREG 6.25 MG PO ×2 (09:08→20:37)
[2023-11-05] MEDS: FLORASTOR 250 MG PO ×2 (09:13→20:33)
[2023-11-05] MEDS: VISBIOME PO (09:25)
--- NOTE | 2023-11-05 11:04 | PTCARENOTE ---
Ambuated in andrade about length of 3 rooms , pulse ox >91. On way back to room her heart rate shot up to 150's and her o2 sat dropped to 84%, lasted <3 seconds and corrected itself. Only c/o feeling tired and weak. Hospitalist notified
--- NOTE | 2023-11-05 11:08 | W.PN.HOSP.TC ---
Today's Communication/Plan
-
Monitor vital signs and see plan
Check chest x-ray
Still feeling short of breath and hypoxic at times
Home O2 evaluation tomorrow
Monitor sodium
Assessment / Plan
Assessment / Plan
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 She was admitted Sep 2023 for foot infection, underwent incision and drainage and had been on IV antibiotic Ceftriaxone.
ID called in for Flagyl which made her ill with nausea and she has been having diarrhea.
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
A/P:
# Severe hyponatremia - suspect multifactorial due to hypovolemia from poor PO intake and diarrhea, and SIADH component
s/p 3% NSS per renal
Monitor sodium. Samsca given 10/29.
TSH 1.24, random cortisol level 11.7
Renal on board
now on PO bumex
Non-[place] related troponin elevation
# hypokalemia
replete
# New acute systolic CHF
# Acute hypoxic respiratory failure 11/01 2/2 flash pulmonary edema; was placed on bipap; now on 1-2L; wean o2 as tolerated. home o2 eval 11/06. still sob at times and hypoxic at times. check CXR
Placed on 2L NC, weaned to RA, pt NOT on home O2
CXR with Mild acute interstitial and alveolar cardiogenic pulmonary edema. Minimal bilateral pleural effusions.
BNP 78929
Echo: EF 35-40%, Global hypokinesis. Moderate to severe mitral regurgitation.�
s/p IV Lasix; lasix on hold due to possible allergy; cath 11/01 with increase wedge pressure suggestive of fluid overload; started bumex
Started ASA, Coreg with holding parameter
cscope 10/31 with patchy mild inflammation. Biopsies were taken. Rule out inflammatory bowel disease. Per GI okay for low residue diet. Patient to follow-up with GI outpatient.
Atrial fibrillation 10/29, spontaneously converted to normal sinus rhythm
now on PO amio
Diffuse macular rash
slowly improving
ID following
Unlikely due to antibiotics however. Will discontinue and monitor since okay with infectious disease. Rash still has not improved so we will hold gabapentin
# Acute on chronic anemia
iron panel, B12, folate levels acceptable
transfused 1 unit PRBC
s/p EGD eval prior to cardiac cath 10/27: EGD was normal.� Her colonoscopy was in 2018 which showed small adenoma and diverticulosis.� She is due for colonoscopy which can be arranged as OP.� She should complete colonoscopy before we can give
clearance to begin anti-platelet therapy, however the risk of bleeding lesion is low and can begin anti-platelet therapy if cardiology feels patient can not wait until OP colonoscopy is completed.
# Diarrheal illness, likely ABx related
now slowly improving
She had been off Laxatives since 09/27/23
C Diff/norovirus/stool Cx negative from admission, repeat C diff again negative
COVID negative
stopped PO PPI, stopped Miralax
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
Was recommended by ID to cont IV antibiotic Ceftriaxone through�11/01/23. Stopped now due to rash. ID following
PT OT recc HH
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
Monitor
# Cough, intermittent; likely related to acute CHF
COVID/ Flu/RSV were negative
Tessalon PRN for cough
# Fibromyalgia HX, Stable
Hold Lexapro/SSRI�due to current severe hyponatremia
Added lidocaine patch for shoulder and lower back
# Insomnia
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
DVT Prophylaxis:�Lovenox SQ
Full code
General: Well Developed, Well Nourished, Comfortable and Conversant
Respiratory: Clear to Auscultation and Non Labored Respirations; Negative Wheezes or Accessory Resp Muscle Use
Cardiac: Regular Rhythm and S1/S2
GI: Soft and Nontender
Musculoskeletal: No Edema
Skin: Warm, Dry and Other (R foot with dressing); Negative Rash
Neuro: Awake
Psych: Calm and Intact Judgement/Insight
I spent a total of 52 minutes with the patient or on the floor. More than 50% of this time involved counseling and coordination of care.
Anticipated Discharge: Within 24 hours
Subjective/Interval History
-
Date of Service: November 05, 2023
denies pain but does feel sob at times
Objective Data
-
Labs:
Laboratory Results
11/05/23
07:19
WBC 10.2
Hgb 9.2 L
Hct 26.7 L
Plt Count 428 H
Sodium 131 L
Potassium 4.0
Chloride 97 L
Carbon Dioxide 27
BUN 11
Creatinine 0.8
Glucose 97
Calcium 9.2
Vital Signs:
Vital Signs
Temp Pulse Resp BP Pulse Ox
98.2 F 91 16 128/80 95
11/05/23 07:35 11/05/23 07:35 11/05/23 07:35 11/05/23 07:35 11/05/23 07:35
I&O
11/04/23 11/05/23 11/06/23
06:59 06:59 06:59
Intake Total 240 / 240 1535 / 1535
Output Total 800 / 800 700 / 700
Balance -560 / -560 835 / 835
[2023-11-05 11:20] VITALS: BP 115/73
[2023-11-05] MEDS: XOPENEX 1.25 MG INHALANT SOLUTION INH ×2 (11:47→21:17)
[2023-11-05] MEDS: ATROVENT NEBULES 0.5 MG INH ×2 (11:47→21:17)
[2023-11-05 12:39] LABS: NT-proBNP 7310 pg/ml
[2023-11-05] MEDS: TYLENOL 650 MG PO ×2 (13:06→20:43)
--- NOTE | 2023-11-05 13:09 | W.PN.NEPH.PH ---
Today's Communication / Plan
-
follow BMP
Assessment/Plan
-
Assessment:
Severe hyponatremia (roxanne 115)
Severe hypokalemia
hypotension
Diarrheal illness
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
Fibromyalgia HX
HTN not on meds
GERD
Anxiety
Plan:
po bumex as is and may use addiontal prn as OP
follow BMP
-
-
Date of Service: November 05, 2023
CC / HPI / ROS
-
Chief Complaint:
hyponatremia
History of Present Illness:
Na stable at 131
BP stable
diuresing with bumex
no fever
hgb stable
Review of Systems:
no cp or sob at rest
on O2
edema present
diarrhea this am
Labs
-
Labs:
WBC 10.2 10^3/uL (4.8-10.8) 11/05/23 07:19
RBC 2.83 10^6/uL (4.20-5.40) L 11/05/23 07:19
Hgb 9.2 g/dL (12.0-16.0) L 11/05/23 07:19
Hct 26.7 % (37.0-47.0) L 11/05/23 07:19
Plt Count 428 10^3/uL (130-400) H 11/05/23 07:19
Sodium 131 mmol/L (135-145) L 11/05/23 07:19
Potassium 4.0 mmol/L (3.5-5.1) 11/05/23 07:19
Chloride 97 mmol/L (98-107) L 11/05/23 07:19
Carbon Dioxide 27 mmol/L (22-30) 11/05/23 07:19
BUN 11 mg/dl (7-17) 11/05/23 07:19
Creatinine 0.8 mg/dL (0.6-1.0) 11/05/23 07:19
eGFR > 60.00 11/05/23 07:19
Glucose 97 mg/dl (70-99) 11/05/23 07:19
Calcium 9.2 mg/dl (8.4-10.2) 11/05/23 07:19
Fup-Y-Zuohenvxcxa Pept 7310 pg/ml 11/05/23 07:19
Albumin 2.8 g/dl (3.5-5.0) L 10/23/23 19:01
Physical Exam
-
Vital Signs:
Vital Signs
Temp Pulse Resp BP Pulse Ox
97.7 F 84 16 115/73 96
11/05/23 11:20 11/05/23 11:45 11/05/23 11:45 11/05/23 11:20 11/05/23 11:45
Cardiovascular:: Regular rate and rhythm
Respiratory:: Bilateral: Coarse
Lung Excursion:: Normal
Abdomen:: Nontender and Soft
Bowel Sounds:: Normal
Extremity Edema:: +1: Bilateral:
[2023-11-05 15:35] VITALS: BP 103/68
[2023-11-05] MEDS: ULTRAM 25 MG PO (15:47)
[2023-11-05] MEDS: LOVENOX SC (17:20)
[2023-11-05 19:30] VITALS: BP 129/72
[2023-11-05] MEDS: BENADRYL 25 MG PO (20:33)
[2023-11-05] MEDS: TUMS 2 TABLET PO (21:07)
[2023-11-05] MEDS: AMBIEN 5 MG PO (23:16)
[2023-11-05 23:18] VITALS: BP 120/75
[2023-11-05] MEDS: HYDROCORTISONE 1% CREAM 1 APPLIC TOPICAL (23:38)
[2023-11-06 03:30] VITALS: BP 127/82
[2023-11-06] MEDS: TYLENOL 650 MG PO (03:57)
[2023-11-06] MEDS: BENADRYL 25 MG PO (03:58)
[2023-11-06 06:00] VITALS: BMI 24.6
[2023-11-06 07:33] VITALS: BP 127/70
[2023-11-06 08:23] LABS: % Immature Granulocytes 0.3 % (0-0.5); % Lymphocytes 19.6 % (20.5-51.1); % Monocytes 5.1 % (1.7-9.3); Absolute Basophils 0.1 10^3/uL (0-0.2); Absolute Eosinophils 0.1 10^3/uL (0-0.7); Absolute Lymphocytes 1.2 10^3/uL (1.2-3.4); Absolute Monocytes 0.3 10^3/uL (0.1-0.6); Absolute Neutrophils 4.3 10^3/uL (1.4-6.5); Hematocrit 27.2 % (37.0-47.0); Hemoglobin 9.2 g/dL (12.0-16.0); Mean Corp Hgb Conc. 33.8 g/dL (33.0-37.0); Mean Corpuscular Volume 97.5 fL (81.0-99.0); Mean Platelet Volume 8.9 fL (7.4-10.4); Nucleated Red Blood Cells % 0 %; Platelet Count 411 10^3/uL (130-400); Red Blood Cell Count 2.79 10^6/uL (4.20-5.40); Red Cell Dist. Width 14.7 % (11.5-14.5); White Blood Cell Count 5.9 10^3/uL (4.8-10.8)
[2023-11-06] MEDS: LOW STRENGTH ASPIRIN 81 MG PO (08:57)
[2023-11-06] MEDS: FLORASTOR 250 MG PO ×2 (08:57→20:28)
[2023-11-06] MEDS: LIDOCAINE 4% PATCH TOPICAL ×2 (08:57)
[2023-11-06] MEDS: VISBIOME 1 CAP PO (08:57)
[2023-11-06] MEDS: BUMEX 0.5 MG PO (08:57)
[2023-11-06] MEDS: PACERONE 200 MG PO ×2 (08:58→20:29)
[2023-11-06] MEDS: COREG 6.25 MG PO ×2 (08:58→20:28)
[2023-11-06] MEDS: HYDROCORTISONE 1% CREAM 1 APPLIC TOPICAL ×2 (09:01→17:16)
[2023-11-06 09:03] LABS: Blood Urea Nitrogen 8 mg/dl (7-17); Calcium 9.1 mg/dl (8.4-10.2); Carbon Dioxide 27 mmol/L (22-30); Chloride 96 mmol/L (98-107); Estimated Creatinine Clearance 62 ml/min; Glucose 93 mg/dl (70-99); Potassium 3.8 mmol/L (3.5-5.1); Sodium 132 mmol/L (135-145); eGFR > 60.00
--- NOTE | 2023-11-06 09:59 | PTCARENOTE ---
Patient with 1 episode of soft stool0
--- NOTE | 2023-11-06 10:00 | PTCARENOTE ---
Patient with 1 episode of soft stool- specimen +positive for C-Diff antigens and toxins. Hospitalist aware and patient educated . Enhanced Precautions initiated.
--- NOTE | 2023-11-06 11:58 | W.PN.HOSP.TC ---
Today's Communication/Plan
-
monitor vitals
see plan
cw bumex
if respiratory status does not improve then can check ultrasound chest to assess pleural effusion
C. difficile positive, start p.o. Vanc
Assessment / Plan
Assessment / Plan
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 She was admitted Sep 2023 for foot infection, underwent incision and drainage and had been on IV antibiotic Ceftriaxone.
ID called in for Flagyl which made her ill with nausea and she has been having diarrhea.
She follows with her family doctor and can conveyor feeder for wound care.
A/P:
# Severe hyponatremia - suspect multifactorial due to hypovolemia from poor PO intake and diarrhea, and SIADH component
s/p 3% NSS per renal
Monitor sodium. Samsca given 10/29.
TSH 1.24, random cortisol level 11.7
Renal on board
now on PO bumex
Non-[place] related troponin elevation
# hypokalemia
resolved
# New acute systolic CHF
# Acute hypoxic respiratory failure 11/01 2/2 flash pulmonary edema; was placed on bipap; now on 1-2L; wean o2 as tolerated. home o2 eval /. still sob at times and hypoxic at times. check CXR
Placed on 2L NC, weaned to RA, pt NOT on home O2
CXR with Mild acute interstitial and alveolar cardiogenic pulmonary edema. Minimal bilateral pleural effusions.
BNP 15320
Echo: EF 35-40%, Global hypokinesis. Moderate to severe mitral regurgitation.�
s/p IV Lasix; lasix on hold due to possible allergy; cath 11/01 with increase wedge pressure suggestive of fluid overload; started bumex
Started ASA, Coreg with holding parameter
cscope 10/31 with patchy mild inflammation. Biopsies were taken. Rule out inflammatory bowel disease. Per GI okay for low residue diet. Patient to follow-up with GI outpatient.
XRAY 11/05 with pleural effusion; patient currently doesn't seem to be in distress; if is short of breath then would likely ask IR to see if can get thoracentesis. Currently diuresis with Bumex
Atrial fibrillation 10/29, spontaneously converted to normal sinus rhythm
now on PO amio
Diffuse macular rash
slowly improving
ID following
Unlikely due to antibiotics however. Will discontinue and monitor since okay with infectious disease. Rash still has not improved so we will hold gabapentin
# Acute on chronic anemia
iron panel, B12, folate levels acceptable
transfused 1 unit PRBC
s/p EGD eval prior to cardiac cath 10/27: EGD was normal.�
# Diarrhea
initially cdiff neg; now cdiff + 2/5; start PO vanc
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
Was recommended by ID to cont IV antibiotic Ceftriaxone through�11/01/23. Stopped now due to rash. ID following
PT OT recc HH
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
Monitor
Patient wants to be started back on gabapentin, restarted
# Cough, intermittent; likely related to acute CHF
COVID/ Flu/RSV were negative
Tessalon PRN for cough
# Fibromyalgia HX, Stable
Hold Lexapro/SSRI; patient wants to hold off
Added lidocaine patch for shoulder and lower back
# Insomnia
Cont TMR TEACHER Ambien PRN
DVT Prophylaxis:�Lovenox SQ
Full code
General: Well Developed, Well Nourished, Comfortable and Conversant
Respiratory: Clear to Auscultation and Non Labored Respirations; Negative Wheezes or Accessory Resp Muscle Use
Cardiac: Regular Rhythm and S1/S2
GI: Soft and Nontender
Musculoskeletal: No Edema
Skin: Warm, Dry and Other (R foot with dressing); Negative Rash
Neuro: Awake
Psych: Calm and Intact Judgement/Insight
I spent a total of 53 minutes with the patient or on the floor. More than 50% of this time involved counseling and coordination of care.
Anticipated Discharge: Within 24 hours
Subjective/Interval History
-
Date of Service: November 06, 2023
has diarrhea
Objective Data
-
Labs:
Laboratory Results
11/06/23
08:02
WBC 5.9
Hgb 9.2 L
Hct 27.2 L
Plt Count 411 H
Sodium 132 L
Potassium 3.8
Chloride 96 L
Carbon Dioxide 27
BUN 8
Creatinine 0.8
Glucose 93
Calcium 9.1
Vital Signs:
Vital Signs
Temp Pulse Resp BP Pulse Ox
98.3 F 92 20 127/70 96
11/06/23 07:33 11/06/23 07:33 11/06/23 07:33 11/06/23 07:33 11/06/23 07:33
I&O
11/05/23 11/06/23 11/07/23
06:59 06:59 06:59
Intake Total 1535 / 1535 1320 / 1320
Output Total 700 / 700
Balance 835 / 835 1320 / 1320
[2023-11-06] MEDS: FIRVANQ 250 MG PO ×3 (12:05→23:40)
[2023-11-06 13:55] VITALS: BP 120/80
--- NOTE | 2023-11-06 15:21 | W.PN.NEPH.PH ---
Today's Communication / Plan
-
mantain fluid restriction and bumex
Assessment/Plan
-
Assessment:
Severe hyponatremia (roxanne 115)
Severe hypokalemia
hypotension
Diarrheal illness
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
Fibromyalgia HX
HTN not on meds
GERD
Anxiety
s/p cardiac cath (LVEDP `27)
C. diff
Plan:
po bumex as is and may use addiontal prn as OP
follow BMP
sodium up to 132 on fluid restriction and oral bumex
-
-
Date of Service: November 06, 2023
CC / HPI / ROS
-
Chief Complaint:
hyponatremia
History of Present Illness:
Na stable at 132
BP stable
diuresing with bumex
no fever
now with C.diff
hgb stable
Review of Systems:
no cp or sob at rest
on O2
edema present
diarrhea
Labs
-
Labs:
WBC 5.9 10^3/uL (4.8-10.8) 11/06/23 08:02
RBC 2.79 10^6/uL (4.20-5.40) L 11/06/23 08:02
Hgb 9.2 g/dL (12.0-16.0) L 11/06/23 08:02
Hct 27.2 % (37.0-47.0) L 11/06/23 08:02
Plt Count 411 10^3/uL (130-400) H 11/06/23 08:02
Sodium 132 mmol/L (135-145) L 11/06/23 08:02
Potassium 3.8 mmol/L (3.5-5.1) 11/06/23 08:02
Chloride 96 mmol/L (98-107) L 11/06/23 08:02
Carbon Dioxide 27 mmol/L (22-30) 11/06/23 08:02
BUN 8 mg/dl (7-17) 11/06/23 08:02
Creatinine 0.8 mg/dL (0.6-1.0) 11/06/23 08:02
eGFR > 60.00 11/06/23 08:02
Glucose 93 mg/dl (70-99) 11/06/23 08:02
Calcium 9.1 mg/dl (8.4-10.2) 11/06/23 08:02
Sln-C-Lqzzwfhnmag Pept 7310 pg/ml 11/05/23 07:19
Albumin 2.8 g/dl (3.5-5.0) L 10/23/23 19:01
Physical Exam
-
Vital Signs:
Vital Signs
Temp Pulse Resp BP Pulse Ox
98.3 F 92 20 127/70 96
11/06/23 07:33 11/06/23 07:33 11/06/23 07:33 11/06/23 07:33 11/06/23 07:33
Cardiovascular:: Regular rate and rhythm
Respiratory:: Bilateral: CTA
Lung Excursion:: Normal
Abdomen:: Nontender and Soft
Bowel Sounds:: Normal
Extremity Edema:: +1: Bilateral:
Marquez Catheter: No
[2023-11-06] MEDS: LOVENOX SC (17:15)
[2023-11-06 17:20] VITALS: BP 140/106
--- NOTE | 2023-11-06 17:50 | CM ---
Patient on oral medications.
Now with c-diff.
Declined PT today.
Watch for additional needs.
Plan: home with [facility]
--- NOTE | 2023-11-06 17:53 | CM ---
Chart reviewed
Now with c-diff.
Declined PT today.
Watch for additional needs.
Plan: home with [facility]
--- NOTE | 2023-11-06 18:30 | PTCARENOTE ---
Patient had a total of 5 loose bm's. Large amt in am and after dinner with small amount in between. Was teary eyed about her situation, but 'appreciative of all the people caring for her '. Eating small amts at a time .
[2023-11-06 20:00] VITALS: BP 124/81
[2023-11-06] MEDS: NEURONTIN 100 MG PO (20:28)
[2023-11-06] MEDS: TESSALON PERLES 200 MG PO (21:31)
[2023-11-06 23:00] VITALS: BP 125/73
[2023-11-06] MEDS: AMBIEN 5 MG PO (23:40)
[2023-11-07] VITALS (7 sets, daily range): BP systolic 109–135; BP diastolic 58–80; O2SAT 98; BMI 24.1
[2023-11-07] MEDS: FIRVANQ 250 MG PO ×4 (05:15→23:12)
[2023-11-07 08:01] LABS: % Basophils 0.9 % (0-2); % Eosinophils 1.3 % (0-6); % Immature Granulocytes 0.5 % (0-0.5); % Lymphocytes 16.3 % (20.5-51.1); Absolute Basophils 0.1 10^3/uL (0-0.2); Absolute Eosinophils 0.1 10^3/uL (0-0.7); Absolute Lymphocytes 0.9 10^3/uL (1.2-3.4); Absolute Monocytes 0.4 10^3/uL (0.1-0.6); Absolute Neutrophils 4.1 10^3/uL (1.4-6.5); Hemoglobin 8.4 g/dL (12.0-16.0); Mean Corp Hgb Conc. 33.6 g/dL (33.0-37.0); Mean Corpuscular Volume 101.2 fL (81.0-99.0); Mean Platelet Volume 9.1 fL (7.4-10.4); Nucleated Red Blood Cells % 0 %; Platelet Count 306 10^3/uL (130-400); Red Blood Cell Count 2.47 10^6/uL (4.20-5.40); Red Cell Dist. Width 15.1 % (11.5-14.5); White Blood Cell Count 5.6 10^3/uL (4.8-10.8)
[2023-11-07] MEDS: BUMEX 0.5 MG PO (08:09)
[2023-11-07] MEDS: LOW STRENGTH ASPIRIN 81 MG PO (08:10)
[2023-11-07] MEDS: COREG 6.25 MG PO ×2 (08:10→20:22)
[2023-11-07] MEDS: PACERONE 200 MG PO ×2 (08:10→20:21)
[2023-11-07] MEDS: HYDROCORTISONE 1% CREAM 1 APPLIC TOPICAL (08:11)
[2023-11-07] MEDS: FLORASTOR 250 MG PO ×2 (08:11→20:21)
[2023-11-07] MEDS: VISBIOME 1 CAP PO (08:11)
[2023-11-07] MEDS: TESSALON PERLES 200 MG PO ×2 (08:12→20:21)
[2023-11-07] MEDS: LIDOCAINE 4% PATCH TOPICAL ×2 (08:21)
[2023-11-07 08:38] LABS: Blood Urea Nitrogen 6 mg/dl (7-17); Calcium 8.3 mg/dl (8.4-10.2); Carbon Dioxide 29 mmol/L (22-30); Chloride 100 mmol/L (98-107); Estimated Creatinine Clearance 71 ml/min; Glucose 86 mg/dl (70-99); Potassium 3.7 mmol/L (3.5-5.1); Sodium 130 mmol/L (135-145); eGFR > 60.00
--- NOTE | 2023-11-07 10:53 | W.PN.HOSP.TC ---
Today's Communication/Plan
-
Monitor vital signs see plan
Now on room air
Continue with Bumex
Monitor sodium
Continue with vancomycin
Monitor stool frequency
Hopeful DC tomorrow
Assessment / Plan
Assessment / Plan
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 She was admitted Sep 2023 for foot infection, underwent incision and drainage and had been on IV antibiotic Ceftriaxone.
ID called in for Flagyl which made her ill with nausea and she has been having diarrhea.
She follows with her family doctor and financial manager for wound care.
A/P:
# Severe hyponatremia - suspect multifactorial due to hypovolemia from poor PO intake and diarrhea, and SIADH component
s/p 3% NSS per renal
Monitor sodium. Samsca given 10/29.
TSH 1.24, random cortisol level 11.7
Renal on board
now on PO bumex
Non-[place] related troponin elevation
# hypokalemia
resolved
# New acute systolic CHF
# Acute hypoxic respiratory failure 11/01 2/2 flash pulmonary edema; was placed on bipap; now on 1-2L; wean o2 as tolerated. home o2 eval /. still sob at times and hypoxic at times. check CXR
Placed on 2L NC, weaned to RA, pt NOT on home O2
CXR with Mild acute interstitial and alveolar cardiogenic pulmonary edema. Minimal bilateral pleural effusions.
BNP 78598
Echo: EF 35-40%, Global hypokinesis. Moderate to severe mitral regurgitation.�
s/p IV Lasix; lasix on hold due to possible allergy; cath 11/01 with increase wedge pressure suggestive of fluid overload; started bumex
Started ASA, Coreg with holding parameter
cscope 10/31 with patchy mild inflammation. Biopsies were taken. Rule out inflammatory bowel disease. Per GI okay for low residue diet. Patient to follow-up with GI outpatient.
XRAY 11/05 with pleural effusion; patient currently doesn't seem to be in distress; if is short of breath then would likely ask IR to see if can get thoracentesis. Currently diuresis with Bumex
Atrial fibrillation 10/29, spontaneously converted to normal sinus rhythm
now on PO amio
Diffuse macular rash
slowly improving
ID signed off
Unlikely due to antibiotics however. Will discontinue and monitor since okay with infectious disease. Rash still has not improved so we will hold gabapentin
# Acute on chronic anemia
iron panel, B12, folate levels acceptable
transfused 1 unit PRBC
s/p EGD eval prior to cardiac cath 10/27: EGD was normal.�
# Diarrhea
initially cdiff neg; now cdiff + 2/5; start PO vanc
about 6 BM's in 24hrs; monitor
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
Was recommended by ID to cont IV antibiotic Ceftriaxone through�11/01/23. Stopped now due to rash. ID following
PT OT recc HH
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
Monitor
Patient wants to be started back on gabapentin, restarted
# Cough, intermittent; likely related to acute CHF
COVID/ Flu/RSV were negative
Tessalon PRN for cough
# Fibromyalgia HX, Stable
Hold Lexapro/SSRI; patient wants to hold off
Added lidocaine patch for shoulder and lower back
# Insomnia
Cont DENTAL MECHANIC Ambien PRN
DVT Prophylaxis:�Lovenox SQ
Full code
General: Well Developed, Well Nourished, Comfortable and Conversant
Respiratory: Clear to Auscultation and Non Labored Respirations; Negative Wheezes or Accessory Resp Muscle Use
Cardiac: Regular Rhythm and S1/S2
GI: Soft and Nontender
Musculoskeletal: No Edema
Skin: Warm, Dry and Other (R foot wound)
Neuro: Awake
Psych: Calm and Intact Judgement/Insight
I spent a total of 52 minutes with the patient or on the floor. More than 50% of this time involved counseling and coordination of care.
Anticipated Discharge: Within 24 hours
Subjective/Interval History
-
Date of Service: November 07, 2023
Denies abdominal pain
Objective Data
-
Labs:
Laboratory Results
11/07/23
07:08
WBC 5.6
Hgb 8.4 L
Hct 25.0 L
Plt Count 306 D
Sodium 130 L
Potassium 3.7
Chloride 100
Carbon Dioxide 29
BUN 6 L
Creatinine 0.7
Glucose 86
Calcium 8.3 L
Vital Signs:
Vital Signs
Temp Pulse Resp BP Pulse Ox
97.8 F 99 16 128/71 94
11/07/23 07:00 11/07/23 07:00 11/07/23 07:00 11/07/23 07:00 11/07/23 07:00
I&O
11/06/23 11/07/23 11/08/23
06:59 06:59 06:59
Intake Total 1320 / 1320 880 / 880
Balance 1320 / 1320 880 / 880
--- NOTE | 2023-11-07 11:29 | CM ---
Chart reviewed and patient is currently on room air. Plan is to home with [facility], patient is currently ambulating 250 feet with walker and supervision.
Plan; Home with [facility] when stable.
[2023-11-07] MEDS: TYLENOL 650 MG PO ×2 (12:46→20:23)
--- NOTE | 2023-11-07 16:00 | W.PN.NEPH.PH ---
Today's Communication / Plan
-
observe
follow bmp
Assessment/Plan
-
Assessment:
Severe hyponatremia (roxanne 115)
Severe hypokalemia
hypotension
Diarrheal illness
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
Fibromyalgia HX
HTN not on meds
GERD
Anxiety
s/p cardiac cath (LVEDP `27)
C. diff
Plan:
sodium is stable at 130
po bumex as is and may use addiontal prn as OP
watch volume status in setting of C.diff
follow BMP
on fluid restriction and oral bumex
-
-
Date of Service: November 07, 2023
CC / HPI / ROS
-
Chief Complaint:
hyponatremia
History of Present Illness:
Na stable at 130
BP stable
diuresing with bumex
no fever
now with C.diff
hgb stable
Review of Systems:
no cp or sob at rest
on O2
edema present
diarrhea
Labs
-
Labs:
WBC 5.6 10^3/uL (4.8-10.8) 11/07/23 07:08
RBC 2.47 10^6/uL (4.20-5.40) L 11/07/23 07:08
Hgb 8.4 g/dL (12.0-16.0) L 11/07/23 07:08
Hct 25.0 % (37.0-47.0) L 11/07/23 07:08
Plt Count 306 10^3/uL (130-400) D 11/07/23 07:08
Sodium 130 mmol/L (135-145) L 11/07/23 07:08
Potassium 3.7 mmol/L (3.5-5.1) 11/07/23 07:08
Chloride 100 mmol/L (98-107) 11/07/23 07:08
Carbon Dioxide 29 mmol/L (22-30) 11/07/23 07:08
BUN 6 mg/dl (7-17) L 11/07/23 07:08
Creatinine 0.7 mg/dL (0.6-1.0) 11/07/23 07:08
eGFR > 60.00 11/07/23 07:08
Glucose 86 mg/dl (70-99) 11/07/23 07:08
Calcium 8.3 mg/dl (8.4-10.2) L 11/07/23 07:08
Shx-J-Roifwarwdat Pept 7310 pg/ml 11/05/23 07:19
Albumin 2.8 g/dl (3.5-5.0) L 10/23/23 19:01
Physical Exam
-
Vital Signs:
Vital Signs
Temp Pulse Resp BP Pulse Ox
98.2 F 68 16 109/58 98
11/07/23 15:39 11/07/23 15:39 11/07/23 15:39 11/07/23 15:39 11/07/23 15:39
Cardiovascular:: Regular rate and rhythm
Respiratory:: Bilateral: CTA
Lung Excursion:: Normal
Bowel Sounds:: Normal
Extremity Edema:: None: Bilateral:
[2023-11-07] MEDS: LOVENOX SC (16:59)
[2023-11-07] MEDS: NEURONTIN 100 MG PO (20:22)
[2023-11-07] MEDS: AMBIEN 5 MG PO (23:12)
[2023-11-07] MEDS: ANESTHETIC LOZENGE 1 LOZENGE PO (23:12)
[2023-11-08] MEDS: ANESTHETIC LOZENGE 1 LOZENGE PO ×2 (04:25→13:05)
[2023-11-08] MEDS: FIRVANQ 250 MG PO ×2 (05:25→13:00)
[2023-11-08 06:00] VITALS: BMI 23.8
[2023-11-08 07:48] LABS: % Eosinophils 2.3 % (0-6); % Immature Granulocytes 0.3 % (0-0.5); % Lymphocytes 23.6 % (20.5-51.1); % Monocytes 8.8 % (1.7-9.3); Absolute Basophils 0.1 10^3/uL (0-0.2); Absolute Eosinophils 0.1 10^3/uL (0-0.7); Absolute Lymphocytes 0.8 10^3/uL (1.2-3.4); Absolute Monocytes 0.3 10^3/uL (0.1-0.6); Absolute Neutrophils 2.2 10^3/uL (1.4-6.5); Hematocrit 24.1 % (37.0-47.0); Hemoglobin 8.1 g/dL (12.0-16.0); Mean Corp Hgb Conc. 33.6 g/dL (33.0-37.0); Mean Corpuscular Hgb 32.5 pg (27.0-31.0); Mean Corpuscular Volume 96.8 fL (81.0-99.0); Mean Platelet Volume 8.9 fL (7.4-10.4); Nucleated Red Blood Cells % 0.6 %; Platelet Count 342 10^3/uL (130-400); Red Blood Cell Count 2.49 10^6/uL (4.20-5.40); Red Cell Dist. Width 14.5 % (11.5-14.5); White Blood Cell Count 3.5 10^3/uL (4.8-10.8)
[2023-11-08 08:11] LABS: Blood Urea Nitrogen 4 mg/dl (7-17); Calcium 8.3 mg/dl (8.4-10.2); Carbon Dioxide 29 mmol/L (22-30); Chloride 101 mmol/L (98-107); Estimated Creatinine Clearance 71 ml/min; Glucose 89 mg/dl (70-99); Potassium 3.4 mmol/L (3.5-5.1); Sodium 132 mmol/L (135-145); eGFR > 60.00
[2023-11-08 08:13] VITALS: BP 134/85
[2023-11-08] MEDS: TYLENOL 650 MG PO ×3 (08:23→17:51)
[2023-11-08] MEDS: BUMEX 0.5 MG PO (09:11)
[2023-11-08] MEDS: VISBIOME 1 CAP PO (09:11)
[2023-11-08] MEDS: LOW STRENGTH ASPIRIN 81 MG PO (09:11)
[2023-11-08] MEDS: COREG 6.25 MG PO ×2 (09:11→21:08)
[2023-11-08] MEDS: FLORASTOR 250 MG PO ×2 (09:11→21:08)
[2023-11-08] MEDS: KCL 40 MEQ PO (09:11)
[2023-11-08] MEDS: LIDOCAINE 4% PATCH TOPICAL ×2 (09:12→09:13)
[2023-11-08] MEDS: PACERONE 200 MG PO ×2 (09:12→21:09)
[2023-11-08] MEDS: TESSALON PERLES 200 MG PO ×2 (09:54→17:51)
--- NOTE | 2023-11-08 11:32 | W.PN.HOSP.TC ---
Today's Communication/Plan
-
Trend BMP
Continue p.o. Vanco
Monitor diet tolerance
Assessment / Plan
Assessment / Plan
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 She was admitted Sep 2023 for foot infection, underwent incision and drainage and had been on IV antibiotic Ceftriaxone.
ID called in for Flagyl which made her ill with nausea and she has been having diarrhea.
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
A/P:
# Severe hyponatremia - suspect multifactorial due to hypovolemia from poor PO intake and diarrhea, and SIADH component
s/p 3% NSS per renal
Monitor sodium. Samsca given 10/29.
TSH 1.24, random cortisol level 11.7
Renal on board
now on PO bumex
Sodium improved to 132. Continue fluid restriction.
Non-[place] related troponin elevation
# hypokalemia
resolved
# New acute systolic CHF
# Acute hypoxic respiratory failure 11/01 2/2 flash pulmonary edema; was placed on bipap; now on 1-2L; wean o2 as tolerated. home o2 eval 11/06. still sob at times and hypoxic at times. check CXR
Placed on 2L NC, weaned to RA, pt NOT on home O2
CXR with Mild acute interstitial and alveolar cardiogenic pulmonary edema. Minimal bilateral pleural effusions.
BNP 40751
Echo: EF 35-40%, Global hypokinesis. Moderate to severe mitral regurgitation.�
s/p IV Lasix; lasix on hold due to possible allergy; cath 11/01 with increase wedge pressure suggestive of fluid overload; started bumex
Started ASA, Coreg with holding parameter
cscope 10/31 with patchy mild inflammation. Biopsies were taken. Rule out inflammatory bowel disease. Per GI okay for low residue diet. Patient to follow-up with GI outpatient.
XRAY 2/ with pleural effusion; patient currently doesn't seem to be in distress; if is short of breath then would likely ask IR to see if can get thoracentesis. Currently diuresis with Bumex
Atrial fibrillation 10/29, spontaneously converted to normal sinus rhythm
now on PO amio
Diffuse macular rash
slowly improving
ID signed off
Unlikely due to antibiotics however. Will discontinue and monitor since okay with infectious disease. Rash seems to have almost resolved
# Acute on chronic anemia
iron panel, B12, folate levels acceptable
transfused 1 unit PRBC
s/p EGD eval prior to cardiac cath 10/27: EGD was normal.�
# Diarrhea
initially cdiff neg; now cdiff + 2/5; start PO vanc
Bowel movements frequency decreasing
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
Was recommended by ID to cont IV antibiotic Ceftriaxone through�11/01/23. Stopped now due to rash. ID following
PT OT recc HH. Completed approximately 40 days per ID.
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
Monitor
Improved with gabapentin and no rash noted with RE-initiation
# Cough, intermittent; likely related to acute CHF
COVID/ Flu/RSV were negative
Tessalon PRN for cough
# Fibromyalgia HX, Stable
Hold Lexapro/SSRI; patient wants to hold off
Added lidocaine patch for shoulder and lower back
# Insomnia
Cont ARC CUTTER PLASMA ARC Ambien PRN
DVT Prophylaxis:�Lovenox SQ
Full code
General: Well Developed, Well Nourished, Comfortable and Conversant
Respiratory: Clear to Auscultation and Non Labored Respirations; Negative Wheezes or Accessory Resp Muscle Use
Cardiac: Regular Rhythm and S1/S2
GI: Soft and Nontender
Musculoskeletal: No Edema
Skin: Warm, Dry and Other (R foot wound)
Neuro: Awake
Psych: Calm and Intact Judgement/Insight
Anticipated Discharge: Within 24 hours
Subjective/Interval History
-
Date of Service: November 08, 2023
States improvement in abdominal discomfort and loose stools
Tolerating some diet
States of sore throat
Objective Data
-
Labs:
Laboratory Results
11/08/23
07:17
WBC 3.5 L
Hgb 8.1 L
Hct 24.1 L
Plt Count 342
Sodium 132 L
Potassium 3.4 L
Chloride 101
Carbon Dioxide 29
BUN 4 L
Creatinine 0.7
Glucose 89
Calcium 8.3 L
Vital Signs:
Vital Signs
Temp Pulse Resp BP Pulse Ox
98.3 F 89 16 134/85 96
11/08/23 08:13 11/08/23 08:13 11/08/23 08:13 11/08/23 08:13 11/08/23 08:13
I&O
11/07/23 11/08/23 11/09/23
06:59 06:59 06:59
Intake Total 880 / 880 240 / 240
Balance 880 / 880 240 / 240
Data Reviewed
-
Total Time Spent with Patient (in minutes): 54
--- NOTE | 2023-11-08 12:13 | W.PN.NEPH.PH ---
Today's Communication / Plan
-
reduce bumex
Assessment/Plan
-
Assessment:
Severe hyponatremia (roxanne 115)
Severe hypokalemia
hypotension
Diarrheal illness
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
Fibromyalgia HX
HTN not on meds
GERD
Anxiety
s/p cardiac cath (LVEDP `27)
C. diff
Plan:
follow BMP
Bumex MWF
replete K
-
-
Date of Service: November 08, 2023
CC / HPI / ROS
-
Chief Complaint:
hyponatremia
History of Present Illness:
Na stable at 132
K low 3.4
BP stable
diuresing with bumex
no fever
now with C.diff
Review of Systems:
no cp or sob at rest
diarrhea
Labs
-
Labs:
WBC 3.5 10^3/uL (4.8-10.8) L 11/08/23 07:17
RBC 2.49 10^6/uL (4.20-5.40) L 11/08/23 07:17
Hgb 8.1 g/dL (12.0-16.0) L 11/08/23 07:17
Hct 24.1 % (37.0-47.0) L 11/08/23 07:17
Plt Count 342 10^3/uL (130-400) 11/08/23 07:17
Sodium 132 mmol/L (135-145) L 11/08/23 07:17
Potassium 3.4 mmol/L (3.5-5.1) L 11/08/23 07:17
Chloride 101 mmol/L (98-107) 02/07/24 07:17
Carbon Dioxide 29 mmol/L (22-30) 11/08/23 07:17
BUN 4 mg/dl (7-17) L 11/08/23 07:17
Creatinine 0.7 mg/dL (0.6-1.0) 11/08/23 07:17
eGFR > 60.00 11/08/23 07:17
Glucose 89 mg/dl (70-99) 11/08/23 07:17
Calcium 8.3 mg/dl (8.4-10.2) L 11/08/23 07:17
Wns-W-Khcofsqvvwp Pept 7310 pg/ml 11/05/23 07:19
Albumin 2.8 g/dl (3.5-5.0) L 10/23/23 19:01
Physical Exam
-
Vital Signs:
Vital Signs
Temp Pulse Resp BP Pulse Ox
98.3 F 89 16 134/85 96
11/08/23 08:13 11/08/23 08:13 11/08/23 08:13 11/08/23 08:13 11/08/23 08:13
Cardiovascular:: Regular rate and rhythm
Respiratory:: Bilateral: Coarse
Lung Excursion:: Normal
Abdomen:: Nontender and Soft
Bowel Sounds:: Normal
Extremity Edema:: +1: Bilateral:
--- NOTE | 2023-11-08 13:22 | CM ---
kosher dietary service manager reviewed patient's chart and plan is to home with [facility] when stable.
Plan; Home with [facility].
[2023-11-08 15:55] VITALS: BP 132/84
[2023-11-08] MEDS: LOVENOX SC (17:52)
[2023-11-08] MEDS: FIRVANQ 125 MG PO (17:52)
[2023-11-08 21:06] VITALS: BP 132/80
[2023-11-08] MEDS: LOVENOX 40 MG SC (21:07)
[2023-11-08] MEDS: NEURONTIN 100 MG PO (21:08)
[2023-11-08] MEDS: ROBITUSSIN 100 MG PO (21:08)
[2023-11-08] MEDS: AMBIEN 5 MG PO (21:17)
[2023-11-08 23:25] VITALS: BP 130/78
[2023-11-09] MEDS: FIRVANQ 125 MG PO ×3 (00:20→11:47)
[2023-11-09] MEDS: ROBITUSSIN 100 MG PO (05:15)
[2023-11-09 06:00] VITALS: BMI 23.3
[2023-11-09 08:01] VITALS: BP 135/79
[2023-11-09 08:15] LABS: % Basophils 1.5 % (0-2); % Immature Granulocytes 0.2 % (0-0.5); % Lymphocytes 23.4 % (20.5-51.1); % Monocytes 7.9 % (1.7-9.3); Absolute Basophils 0.1 10^3/uL (0-0.2); Absolute Eosinophils 0.1 10^3/uL (0-0.7); Absolute Lymphocytes 1.1 10^3/uL (1.2-3.4); Absolute Monocytes 0.4 10^3/uL (0.1-0.6); Absolute Neutrophils 2.9 10^3/uL (1.4-6.5); Hematocrit 24.7 % (37.0-47.0); Hemoglobin 8.5 g/dL (12.0-16.0); Mean Corp Hgb Conc. 34.4 g/dL (33.0-37.0); Mean Corpuscular Hgb 33.1 pg (27.0-31.0); Mean Corpuscular Volume 96.1 fL (81.0-99.0); Mean Platelet Volume 8.5 fL (7.4-10.4); Nucleated Red Blood Cells % 0 %; Platelet Count 365 10^3/uL (130-400); Red Blood Cell Count 2.57 10^6/uL (4.20-5.40); Red Cell Dist. Width 14.8 % (11.5-14.5); White Blood Cell Count 4.5 10^3/uL (4.8-10.8)
[2023-11-09] MEDS: PACERONE 200 MG PO (08:30)
[2023-11-09] MEDS: COREG 6.25 MG PO (08:30)
[2023-11-09] MEDS: FLORASTOR 250 MG PO (08:30)
[2023-11-09] MEDS: VISBIOME 1 CAP PO (08:30)
[2023-11-09] MEDS: LOW STRENGTH ASPIRIN 81 MG PO (08:30)
[2023-11-09] MEDS: LIDOCAINE 4% PATCH TOPICAL ×2 (08:31)
[2023-11-09 08:49] LABS: Blood Urea Nitrogen 5 mg/dl (7-17); Calcium 8.5 mg/dl (8.4-10.2); Carbon Dioxide 29 mmol/L (22-30); Chloride 101 mmol/L (98-107); Estimated Creatinine Clearance 62 ml/min; Glucose 88 mg/dl (70-99); Potassium 3.7 mmol/L (3.5-5.1); Sodium 132 mmol/L (135-145); eGFR > 60.00
[2023-11-09] MEDS: TYLENOL 650 MG PO (11:46)
[2023-11-09] MEDS: TESSALON PERLES 200 MG PO (11:51)
--- NOTE | 2023-11-09 12:06 | W.PN.HOSP.TC ---
Today's Communication/Plan
-
Monitor sodium
continue with fluid restriction
Continue with p.o. vanc
Nephrology recommendation
Assessment / Plan
Assessment / Plan
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 She was admitted Sep 2023 for foot infection, underwent incision and drainage and had been on IV antibiotic Ceftriaxone.
ID called in for Flagyl which made her ill with nausea and she has been having diarrhea.
She follows with her family doctor and manager advertising for wound care.
A/P:
# Severe hyponatremia - suspect multifactorial due to hypovolemia from poor PO intake and diarrhea, and SIADH component
s/p 3% NSS per renal
Monitor sodium. Samsca given 10/29.
TSH 1.24, random cortisol level 11.7
Renal on board
now on PO bumex changed to 3 times weekly
Sodium remains at 132. Continue fluid restriction.
Non-[place] related troponin elevation
# hypokalemia
resolved
# New acute systolic CHF
# Acute hypoxic respiratory failure 11/01 2/2 flash pulmonary edema; was placed on bipap; now on 1-2L; wean o2 as tolerated. home o2 eval 11/06. still sob at times and hypoxic at times. check CXR
Placed on 2L NC, weaned to RA, pt NOT on home O2
CXR with Mild acute interstitial and alveolar cardiogenic pulmonary edema. Minimal bilateral pleural effusions.
BNP 93020
Echo: EF 35-40%, Global hypokinesis. Moderate to severe mitral regurgitation.�
s/p IV Lasix; lasix on hold due to possible allergy; cath 11/01 with increase wedge pressure suggestive of fluid overload; started bumex
Started ASA, Coreg with holding parameter
cscope 10/31 with patchy mild inflammation. Biopsies were taken. Rule out inflammatory bowel disease. Per GI okay for low residue diet. Patient to follow-up with GI outpatient.
XRAY 11/05 with pleural effusion; patient currently doesn't seem to be in distress; if is short of breath then would likely ask IR to see if can get thoracentesis. Currently diuresis with Bumex
Atrial fibrillation 10/29, spontaneously converted to normal sinus rhythm
now on PO amio and aspirin
Diffuse macular rash
ID signed off
Unlikely due to antibiotics however. Will discontinue and monitor since okay with infectious disease. Rash seems to have almost resolved
# Acute on chronic anemia
iron panel, B12, folate levels acceptable
transfused 1 unit PRBC
s/p EGD eval prior to cardiac cath 10/27: EGD was normal.�
# Diarrhea
initially cdiff neg; now cdiff + 2/5; start PO vanc
Bowel movements frequency decreasing
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
Was recommended by ID to cont IV antibiotic Ceftriaxone through�11/01/23. Stopped now due to rash. ID following
PT OT recc HH. Completed approximately 40 days per ID.
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
Monitor
Improved with gabapentin and no rash noted with RE-initiation
# Cough, intermittent; likely related to acute CHF
COVID/ Flu/RSV were negative
Tessalon PRN for cough
# Fibromyalgia HX, Stable
Hold Lexapro/SSRI; patient wants to hold off
Added lidocaine patch for shoulder and lower back
# Insomnia
Cont COLLECTION OFFICER Ambien PRN
DVT Prophylaxis:�Lovenox SQ
Full code
Dispo Home with as needed. Await nephrology recs.
Anticipated Discharge: Today
Subjective/Interval History
-
Date of Service: November 09, 2023
Tolerating diet
States had 2 bowel movements earlier today
Denies any abdominal pain
Objective Data
-
Labs:
Laboratory Results
11/09/23
08:04
WBC 4.5 L
Hgb 8.5 L
Hct 24.7 L
Plt Count 365
Sodium 132 L
Potassium 3.7
Chloride 101
Carbon Dioxide 29
BUN 5 L
Creatinine 0.8
Glucose 88
Calcium 8.5
Vital Signs:
Vital Signs
Temp Pulse Resp BP Pulse Ox
98.5 F 84 18 135/79 96
11/09/23 08:01 11/09/23 08:01 11/09/23 08:01 11/09/23 08:01 11/09/23 08:01
I&O
11/08/23 11/09/23 11/10/23
06:59 06:59 06:59
Intake Total 240 / 240 1680 / 1680
Balance 240 / 240 1680 / 1680
Physical Exam
-
General: Comfortable and Conversant
Respiratory: Clear to Auscultation and Non Labored Respirations; Negative Wheezes or Accessory Resp Muscle Use
Cardiac: Regular Rhythm and S1/S2
GI: Soft, Nontender and Nondistended
Musculoskeletal: No Edema
Skin: Warm and Dry; Negative Rash
Neuro: Awake, Alert, Oriented, AO x 3, No Motor Deficits and Nonfocal/Grossly Intact
Psych: Calm and Intact Judgement/Insight
--- NOTE | 2023-11-09 12:28 | W.PN.NEPH.PH ---
Today's Communication / Plan
-
dc
Assessment/Plan
-
Assessment:
Severe hyponatremia (roxanne 115)
Severe hypokalemia
hypotension
Diarrheal illness
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
Fibromyalgia HX
HTN not on meds
GERD
Anxiety
s/p cardiac cath (LVEDP `27)
C. diff
Plan:
follow BMP
Bumex MWF extra prn
dc
-
-
Date of Service: November 09, 2023
CC / HPI / ROS
-
Chief Complaint:
hyponatremia
History of Present Illness:
Na stable at 132
BP stable
diuresing with bumex
no fever
now with C.diff, on abx
Review of Systems:
no cp or sob at rest
Labs
-
Labs:
WBC 4.5 10^3/uL (4.8-10.8) L 11/09/23 08:04
RBC 2.57 10^6/uL (4.20-5.40) L 11/09/23 08:04
Hgb 8.5 g/dL (12.0-16.0) L 11/09/23 08:04
Hct 24.7 % (37.0-47.0) L 11/09/23 08:04
Plt Count 365 10^3/uL (130-400) 11/09/23 08:04
Sodium 132 mmol/L (135-145) L 11/09/23 08:04
Potassium 3.7 mmol/L (3.5-5.1) 11/09/23 08:04
Chloride 101 mmol/L (98-107) 11/09/23 08:04
Carbon Dioxide 29 mmol/L (22-30) 11/09/23 08:04
BUN 5 mg/dl (7-17) L 11/09/23 08:04
Creatinine 0.8 mg/dL (0.6-1.0) 11/09/23 08:04
eGFR > 60.00 11/09/23 08:04
Glucose 88 mg/dl (70-99) 11/09/23 08:04
Calcium 8.5 mg/dl (8.4-10.2) 11/09/23 08:04
Hit-J-Etvsdwzxlgc Pept 7310 pg/ml 11/05/23 07:19
Albumin 2.8 g/dl (3.5-5.0) L 10/23/23 19:01
Physical Exam
-
Vital Signs:
Vital Signs
Temp Pulse Resp BP Pulse Ox
98.5 F 84 18 135/79 96
11/09/23 08:01 11/09/23 08:01 11/09/23 08:01 11/09/23 08:01 11/09/23 08:01
Cardiovascular:: Regular rate and rhythm
Respiratory:: Bilateral: Coarse
Lung Excursion:: Normal
Abdomen:: Nontender and Soft
Bowel Sounds:: Normal
Extremity Edema:: +1: Bilateral:
--- NOTE | 2023-11-09 12:39 | W.DCSUMMARY ---
Discharge Summary
Discharge Data
Date of Admission: 10/23/23
Date of Discharge: 11/09/23
-
Pending Results: No
Hospital Course
58-year-old female past medical history of mood disorder, recent right foot cellulitis and osteomyelitis was on IV ceftriaxone who is presenting with severe weakness, nausea and poor appetite and diarrhea. Patient was found to have a severe
hyponatremia upon admission. Patient received dose of hypertonic saline. Sodium slowly started to trend up. Patient also required dose of Samsca. Patient proBNP was significantly elevated and echocardiogram was ordered . EF of 35 to 40% with
global hypokinesis, with moderate to severe mitral regurgitation. Patient was also found to be in atrial fibrillation with rapid ventricular response and was started on amiodarone. Patient was also started on goal-directed medical therapy with
carvedilol. Patient was also found to be anemic and received PRBC transfusion. Gastroenterology was consulted and patient underwent endoscopy which was normal. Patient underwent colonoscopy �Patchy mild inflammation characterized by altered
vascularity, congestion (edema), erosions and granularity was found in the entire colon.� Biopsies were taken with a cold forceps for histology. Diverticulosis in the sigmoid colon and in the descending colon. Patient was started on aspirin.
Patient will need to follow-up outpatient with gastroenterology. Patient was having persistent diarrhea and C. difficile were checked which was found to be positive. Patient was started on p.o. vancomycin. Patient also had a diffuse macular rash
and infectious disease was on board. Patient was taken off ceftriaxone. Patient after GI evaluation underwent cardiac catheterization which showed nonobstructive coronary artery disease. Significantly elevated right and left-sided filling
pressures with normal cardiac output and elevated systemic vascular resistance. Nephrology was on board and patient received diuresis. Patient was started on IV Bumex. Patient was also complaining of right foot neuropathic pain from recent
surgery and was started on gabapentin which patient was tolerating without any difficulty Patient was also on SSRI prior to arrival to the hospital which was discontinued as with severe hyponatremia on admission and patient agree with plan.
Patient diet slowly advanced and Na stabilized. She was tolerating low residue diet. Patient sodium remained stable we will plan to transition of IV Bumex to 0.5 mg of Bumex 3 times daily weekly. Upon discharge, pt will need to follow outpatient
with gastroenterology and cardiology and primary doctor.
Discharge Plan
-
Patient Disposition: Home with Home Care
Discharge Diagnosis/Procedures: Severe hyponatremia
New acute systolic congestive heart failure
Nonischemic cardiomyopathy
New onset atrial fibrillation
Acute hypoxic respiratory failure
cardiac catheterization
C. difficile infection
Maculopapular rash
Suspected colitis
Status post colonoscopy
Condition: Fair
Diet: Low Cholesterol and Restrict fluids to 48 oz
Activity: As tolerated
Driving Restrictions: As prior to admission
Bathing Restrictions: None
Blood Work: BMP next week with primary care provider
Other Services: VN
Specialty Instructions: Weigh Daily- Call MD for wt gain/loss 3 lbs overnight/5 lbs in 1 week
Activity Restrictions/Additional Instructions:
Please follow-up with the skin piler outpatient
Instructions: Clostridioides difficile
Stand Alone Forms: DC Instructions- Cath/EP Lab
Referrals:
Rasheed Bateman MD [Active] - in one to two weeks
Josselyn Bailey MD [Family Provider] - in less than 1 week
Yung Taet MD [Active] - 11/27/23 11:20 am (You have cardiology follow up with Dr. Tate on November 27 at 11:20 am in [address] at the [facility] in [place] on [address] If you are unable to make this appointment
please call [phone] to reschedule. )
Prescriptions:
New
carvedilol 3.125 mg Tablet
6.25 mg PO BID Qty: 60 0RF
hydrocortisone 1 % Cream
1 applic topical TIDPRN PRN (Reason: itching/rash) Qty: 28.4 0RF
Saccharomyces boulardii 250 mg Capsule
250 mg PO BID Qty: 60 0RF
lidocaine 4 % Adhesive Patch,Medicated
1 patch topical DAILY Qty: 30 0RF
amiodarone [Pacerone] 200 mg Tablet
200 mg PO BID Qty: 60 0RF
benzonatate 100 mg Capsule
200 mg PO TIDPRN PRN (Reason: cough) Qty: 14 0RF
aspirin [Children's Aspirin] 81 mg Tablet,Chewable
81 mg PO DAILY Qty: 30 0RF
gabapentin 100 mg Capsule
100 mg PO HS Qty: 30 0RF
vancomycin 125 mg capsule
125 mg PO QID 7 Days Qty: 28 0RF
bumetanide 0.5 mg Tablet
0.5 mg PO MoWeFr@0800 30 Days Qty: 13 0RF
Continued
ascorbic acid (vitamin C) [Vitamin C] 500 mg Tablet
500 mg PO DAILY
zolpidem [Ambien] 5 mg Tablet
5 mg PO HS PRN (Reason: insomnia)
Patient Comments:
10/23/2023: last filled 10/14/23, 30 tabs for 30 days from [id number]
fexofenadine-pseudoephedrine [Elizabeth-D 24 Hour] 180-240 mg Tablet Extended Release 24 Hr
0.5 tab PO DAILY
Vitamin B12 Chew
1 tab PO DAILY
ondansetron HCl 4 mg tablet
4 mg PO Q6H PRN (Reason: nausea/vomiting)
omeprazole 20 mg capsule,delayed release(DR/EC)
20 mg PO DAILY
Discontinued
ibuprofen 800 mg Tablet
800 mg PO Q6H PRN (Reason: pain)
escitalopram oxalate [Lexapro] 5 mg Tablet
5 mg PO DAILY
ceftriaxone 2 gram recon soln
2,000 mg IV DAILY@1600
Rx Instructions:
End Date 11/01/23
Discharge Orders:
Discharge Patient (As Directed); Ordered 11/09/23
Ordered By: Duy U. Chowdary
Discharge Date and Time
Discharge Date/Time: 11/09/23 16:17
--- NOTE | 2023-11-09 15:04 | CM ---
Patient is for discharge to home today with [facility].
Plan; Home with [facility]
== END 2023-11-09 16:17 | disposition home health service (06) | DRG 643 ==
LOC: 4 WEST ACU 20:35
PROVIDERS: Emergency Medicine; Internal Medicine; Internal Medicine Cardiovascular Disease; Internal Medicine Gastroenterology; Internal Medicine Interventional Cardiology; Physician Assistant; Registered Nurse; Specialist; Student in an Organized Health Care Education/Training Program; ADMITTING PHYSICIAN Internal Medicine; ATTENDING PHYSICIAN Hospitalist; CONSULT PHYSICIAN Internal Medicine; CONSULT PHYSICIAN Internal Medicine Cardiovascular Disease; CONSULT PHYSICIAN Internal Medicine Gastroenterology; CONSULT PHYSICIAN Internal Medicine Infectious Disease; EMERGENCY PHYSICIAN Emergency Medicine; FAMILY PHYSICIAN Family Medicine
PROC: 0DJ08ZZ Inspection of Upper Intestinal Tract, Via Natural or Artificial Opening Endoscopic (ICD-10-PCS; 2023-10-27)
PROC: 0DBE8ZX Excision of Large Intestine, Via Natural or Artificial Opening Endoscopic, Diagnostic (ICD-10-PCS; 2023-10-31)
PROC: 4A023N8 Measurement of Cardiac Sampling and Pressure, Bilateral, Percutaneous Approach (ICD-10-PCS; 2023-11-01)
PROC: B2151ZZ Fluoroscopy of Left Heart using Low Osmolar Contrast (ICD-10-PCS; 2023-11-01)
PROC: B2111ZZ Fluoroscopy of Multiple Coronary Arteries using Low Osmolar Contrast (ICD-10-PCS; 2023-11-01)
DX: E22.2 Syndrome of inappropriate secretion of antidiuretic hormone (principal); I50.21 Acute systolic (congestive) heart failure; J96.01 Acute respiratory failure with hypoxia; L03.115 Cellulitis of right lower limb; M86.8X7 Other osteomyelitis, ankle and foot; I42.8 Other cardiomyopathies; A04.72 Enterocolitis due to Clostridium difficile, not specified as recurrent; I5A Non-ischemic myocardial injury (non-traumatic); E87.6 Hypokalemia; K58.9 Irritable bowel syndrome, unspecified; E86.0 Dehydration; I95.9 Hypotension, unspecified; K21.9 Gastro-esophageal reflux disease without esophagitis; I44.7 Left bundle-branch block, unspecified; D50.9 Iron deficiency anemia, unspecified; Z11.52 Encounter for screening for COVID-19; R21 Rash and other nonspecific skin eruption; I48.91 Unspecified atrial fibrillation; K57.30 Diverticulosis of large intestine without perforation or abscess without bleeding; I25.10 Atherosclerotic heart disease of native coronary artery without angina pectoris; G57.81 Other specified mononeuropathies of right lower limb; K52.9 Noninfective gastroenteritis and colitis, unspecified; I34.0 Nonrheumatic mitral (valve) insufficiency; M79.7 Fibromyalgia; F32.A Depression, unspecified; F41.9 Anxiety disorder, unspecified; G47.00 Insomnia, unspecified; Z79.899 Other long term (current) drug therapy; Z86.010 Personal history of colon polyps; Z87.891 Personal history of nicotine dependence
CPT/HCPCS: 88305; 71045; 71046; 76937; 80048; 80053; 82533; 82607; 82728; 82746; 83540; 83550; 83735; 83880; 83930; 83935; 84295; 84300; 84443; 84484; 85025; 85027; 86850; 86900; 86901; 86920; 87045; 87046; 87070; 87324; 87427; 87449; 87502; 87798; 87807; 87811; 88342; 89055; 93005; 93306; 93460; 94640; 94660; 97116; 97163; 97166; 97530; 97535; 99152; 99153; 99291; C1894; J2916; P9016; Q9967

== ENCOUNTER → 2023-12-21 13:21 | Outpatient (REF) | payer BC, SELFPAY | LOC: RAD 13:21 | PROVIDERS: ATTENDING PHYSICIAN Family Medicine | DX: M54.9 Dorsalgia, unspecified (principal) | CPT/HCPCS: 71046; 72072 ==

== ENCOUNTER → 2024-01-10 10:17 | Outpatient (REF) | payer BC, SELFPAY | LOC: DHCBS HW 10:17 | PROVIDERS: ATTENDING PHYSICIAN Internal Medicine Cardiovascular Disease; FAMILY PHYSICIAN Family Medicine | DX: I42.9 Cardiomyopathy, unspecified (principal) | CPT/HCPCS: 93306 ==

== ENCOUNTER → 2024-01-24 10:54 | Outpatient (REF) | payer BC, SELFPAY | LOC: HWRAD 10:54 | PROVIDERS: ATTENDING PHYSICIAN Family Medicine | DX: M81.0 Age-related osteoporosis without current pathological fracture (principal); Z12.31 Encounter for screening mammogram for malignant neoplasm of breast | CPT/HCPCS: 77063; 77067; 77080 ==

== ENCOUNTER 2024-03-01 13:49 | Emergency (ER) | payer BC, SELFPAY ==
[2024-03-01 13:58] VITALS: BP 136/77
[2024-03-01 14:57] VITALS: BMI 19.0
--- NOTE | 2024-03-01 14:58 | ED.GENMED ---
History of Present Illness
General
Chief Complaint: Head Injury
Source: patient
Exam Limitations: none
Time Seen by Provider: 03/01/24 14:09
Nursing documentation reviewed up to this point in time: agreed with
Travel History
Have you had any contact with someone who has COVID-19?: No
Do you have any symptoms of coronavirus? Fever > 100 degrees, chills, cough, shortness of breath, sore throat, loss of taste or smell, muscle aches, or headache?: No
History of Present Illness
History of Present Illness:
58 y/o F with h/o asthma, cardiomyopathy
here with headache, neck pain, left facial bruising after banging her face/eye against a door at a restaurant 4 days ago
pt says eh had a laceration to her left eye brow which bled and then closed
she went to and no imaging was done
she went home and has continued to have mild headache, neck soreness, bruising around her eye
she has no eye pain, visio mnchanges, numbness/tingling/weakness in arms or legs
sees chiropractor for choronic neck pain
neck pain not worse after maninpulation yesterday
no facial numbness, new severe diaziness
Past History
Past History
ED Past Medical History: Other (Fibromyalgia, IBS foot infection)
ED Past Surgical History: Gynecological, Tonsilectomy and Other (breast reduction)
Social History
Tobacco: Non-smoker
Alcohol: None
Drug: None
Personal:
Living: with family
Employment: Employed
Family History
Family History: Other
Review of Systems
Review of Systems
Allergies reviewed?: Yes
All Other Systems: Not applicable
Phy Exam
Physical Exam
Physical Exam:
GENERAL: Alert , in no apparent distress
HEAD: NCAT
face: left orbital region with bruising
laceration lcoseed 1 cm in the left eye brow
tender left zygoma an dinferior orbit
NECK: no midline tenderness, active ROM intact, no paraspinal muscle tenderness; pain with movement
EYE: pupils equal and reactive, EOMs intact.
ENT: o/p clr, mmm. no hemotympanum
CARDIAC: Regular rate and rhythm, no edema
LUNGS: Clear breath sounds bilaterally, no acute respiratory distress, no wheezes/rales/rhonchi
ABDOMEN: Soft, without focal tenderness, no r/g, no cvat
NEUROLOGICAL: Alert and oriented, no focal neuro deficits, CN intact, 5/5 strength, sensation intact
SKIN: Warm and dry,
MUSCULOSKELETAL: No edema, well perfused.
PSYCH: Normal and appropriate interaction.
Course
Orders/Labs/Results
Orders:
Orders
03/01/24 14:43
CT Cervical Spine W/o Iv Contr Urgent
Comment:
Reason For Exam: neck pain after hitting head
CT Facial Bones W/o Iv Contras Urgent
Comment:
Reason For Exam: hit left zygoma on door
CT Head W/o Iv Contrast Urgent
Comment:
Reason For Exam: head injury, dizziness
Vital Signs
Initial and Last Documented VS:
Initial Vital Signs
Temp Pulse Resp BP Pulse Ox
98.2 F 73 18 136/77 100
03/01/24 13:58 03/01/24 13:58 03/01/24 13:58 03/01/24 13:58 03/01/24 13:58
Last Documented Vital Signs
Temp Pulse Resp BP Pulse Ox
98.2 F 70 18 156/89 95
03/01/24 13:58 03/01/24 16:40 03/01/24 16:40 03/01/24 16:40 03/01/24 16:40
MDM/Problems Addressed
Differential Diagnosis Includes:
contusion, fracture, conucssion, cervical strain
MDM/Problems Addressed:
58 y/o F
banged into a door frame 4 days ago
laceration left eye brow and now facial bruising arond left eye
no vision changes
having headache, a little lightheadedness, neck pain
no other neuro sypmtoms
well appearing
no photophobia
neuro intact
some orbital rtendrness with STS
no midline tenderness, full neck rom
cts d/w pateint
severe djd c2/c3
spinal stenossi but no signs cauda equina here
given copy of report
likely mild concussion
f/u with pcp
*Critical Care Note
Total Time (30-74mins, 75-104mins- exclusive of procedures): Not Applicable
ED Attending Note
-
Portions of this chart may have been created with voice recognition software.� Occasional wrong word or��sound alike� substitutions may have occurred due to the inherent limitations of voice recognition software.
Discharge Plan
Departure
Patient Disposition: Home (Routine Discharge)
Date of Disposition: 03/01/24
Time of Disposition: 16:25
Patient with high blood pressure during this ER visit?: No
Condition: Fair
Covid-19: Not Applicable
Discharge Problem:
Concussion, Cervical strain, Ecchymosis, Degenerative disc disease
Instructions: Concussion, Adult (DC), Eye Contusion (DC)
Prescriptions:
No Action
ascorbic acid (vitamin C) [Vitamin C] 500 mg Tablet
500 mg PO DAILY
zolpidem [Ambien] 5 mg Tablet
5 mg PO HS PRN (Reason: insomnia)
Patient Comments:
10/23/2023: last filled 10/14/23, 30 tabs for 30 days from [id number]
fexofenadine-pseudoephedrine [Elizabeth-D 24 Hour] 180-240 mg Tablet Extended Release 24 Hr
0.5 tab PO DAILY
Vitamin B12 Chew
1 tab PO DAILY
ondansetron HCl 4 mg tablet
4 mg PO Q6H PRN (Reason: nausea/vomiting)
omeprazole 20 mg capsule,delayed release(DR/EC)
20 mg PO DAILY
carvedilol 3.125 mg Tablet
6.25 mg PO BID Qty: 60 0RF
hydrocortisone 1 % Cream
1 applic topical TIDPRN PRN (Reason: itching/rash) Qty: 28.4 0RF
Saccharomyces boulardii 250 mg Capsule
250 mg PO BID Qty: 60 0RF
lidocaine 4 % Adhesive Patch,Medicated
1 patch topical DAILY Qty: 30 0RF
amiodarone [Pacerone] 200 mg Tablet
200 mg PO BID Qty: 60 0RF
benzonatate 100 mg Capsule
200 mg PO TIDPRN PRN (Reason: cough) Qty: 14 0RF
aspirin [Children's Aspirin] 81 mg Tablet,Chewable
81 mg PO DAILY Qty: 30 0RF
gabapentin 100 mg Capsule
100 mg PO HS Qty: 30 0RF
vancomycin 125 mg capsule
125 mg PO QID 7 Days Qty: 28 0RF
bumetanide 0.5 mg Tablet
0.5 mg PO MoWeFr@0800 30 Days Qty: 13 0RF
Referrals:
Josselyn Bailey MD [Family Provider] - Follow up in 2-3 days
Activity Restrictions/Additional Instructions:
you may have a mild concussion
for this we recommend 24-48 hours of brain rest to help your brain heal and your headache improve.
also use tylenol every 6 hours as needed for headache
for your neck, heat off and on as needed.
return to the er for: worsening pain, vomiting, confusion, weakness, numbness/tingling in arms or legs or any concerns.
YOU HAVE SEVERE DEGENERATIVE CHANGES IN YOUR SPINE
FOLLOW UP WITH AN ORTHOPEDIC/SPINE DOCTOR AN OUTAPTIETN
RETURN FOR: SEVERE PAIN, ARM OR LEG WEAKNESS, ARM OR LEG NUMBNESS, FEVER, VOMITING OR ANY CONCERNS.
Interventions
Interventions:
*Risk Screen - Suicide Last Done: 03/01/24 13:58
*General Assessment Last Done: 03/01/24 13:58
*Neglect/Abuse Screening Last Done: 03/01/24 13:58
ED- Fall Risk Assessment Last Done: 03/01/24 14:57
*Nursing Disposition Last Done: 03/01/24 16:41
ED- Neurological Assessment Last Done: 03/01/24 14:57
ED-Skin Assessment Last Done: 03/01/24 14:57
Discharge Date and Time
Discharge Date/Time: 03/01/24 16:41
Print Language: EQUATORIAL GUINEAN
[2024-03-01 16:40] VITALS: BP 156/89
== END 2024-03-01 16:41 | disposition home or self-care (01) ==
LOC: EMR 13:49
PROVIDERS: EMERGENCY PHYSICIAN Emergency Medicine; FAMILY PHYSICIAN Family Medicine
DX: S16.1XXA Strain of muscle, fascia and tendon at neck level, initial encounter (principal); S05.12XA Contusion of eyeball and orbital tissues, left eye, initial encounter; S06.0XAA Concussion with loss of consciousness status unknown, initial encounter; S01.112A Laceration without foreign body of left eyelid and periocular area, initial encounter; M50.30 Other cervical disc degeneration, unspecified cervical region; W22.09XA Striking against other stationary object, initial encounter
CPT/HCPCS: 99284; 70450; 70486; 72125

== ENCOUNTER → 2024-06-04 14:02 | Outpatient (REF) | payer BC, SELFPAY | LOC: RCS 14:02 | PROVIDERS: ATTENDING PHYSICIAN Internal Medicine Cardiovascular Disease; FAMILY PHYSICIAN Family Medicine | DX: I42.9 Cardiomyopathy, unspecified (principal) | CPT/HCPCS: 93306 ==

== ENCOUNTER 2024-09-20 13:03 | Emergency (ER) | payer BC, SELFPAY ==
[2024-09-20 13:12] VITALS: BP 163/88
--- NOTE | 2024-09-20 15:13 | ED.GENMED ---
History of Present Illness
General
Chief Complaint: Musculo-Skeletal Complaint
Source: patient
Time Seen by Provider: 09/20/24 15:09
History of Present Illness
History of Present Illness:
59-year-old female presenting to the emergency department for evaluation following right foot injury sustained a few days ago when she tripped while walking outside at her house noting pain along the lateral aspect of the dorsum of the foot as well
as along the plantar surface by the calcaneus and along the calcaneal tendon. Patient is still been able to ambulate states when she walks it feels 'different'. Notes previous history of surgery to the right foot for previous infection at the
distal first metatarsal last year. Still follows with podiatry and attempted to see them today however they are out of the office which is why she decided to come here instead. No other concerns at this time.
Past History
Past History
ED Past Medical History: Other (Fibromyalgia, IBS foot infection)
ED Past Surgical History: Gynecological, Tonsilectomy and Other (breast reduction)
Social History
Tobacco: Non-smoker
Alcohol: None
Drug: None
Personal:
Living: with family
Employment: Employed
Family History
Family History: Other
Review of Systems
Review of Systems
All Other Systems: ROS reviewed and negative except as documented in HPI and ROS
Phy Exam
Physical Exam
Physical Exam:
GENERAL: Alert , in no apparent distress
EYE: conjunctiva clear
Head: Normocephalic atraumatic
NECK: Supple,
ENT: mmm.
LUNGS: no acute respiratory distress
NEUROLOGICAL: Alert and oriented
SKIN: Warm and dry, skin intact.
MUSCULOSKELETAL: No obvious deformity, erythema, edema, ecchymosis, abrasions or lacerations. Mild tenderness along the lateral aspect of the foot and insertion of the calcaneal tendon but otherwise neurovascularly intact, full range of motion and
no other signs of trauma.
PSYCH: Normal and appropriate interaction.
Scores
Heart Failure Risk
Heart Failure Risk Score: Not Applicable
Heart Score for Chest Pain Patients
STEMI patient?: Not applicable
Withdrawal Assessment of Alcohol
Withdrawal Assessment Completed?: Not applicable
Course
Orders/Labs/Results
Orders:
Orders
09/20/24 13:15
Foot, Right 3 View [CR Foot - Right Min 3 Views] Urgent
Comment:
Reason For Exam: pain injury
Vital Signs
Initial and Last Documented VS:
Initial Vital Signs
Temp Pulse Resp BP Pulse Ox
97.7 F 75 16 163/88 98
09/20/24 13:12 09/20/24 13:12 09/20/24 13:12 09/20/24 13:12 09/20/24 13:12
Last Documented Vital Signs
Temp Pulse Resp BP Pulse Ox
97.7 F 63 18 158/89 98
09/20/24 13:12 09/20/24 15:37 09/20/24 15:37 09/20/24 15:37 09/20/24 13:12
MDM/Problems Addressed
Differential Diagnosis Includes:
Sprain, fracture, contusion, plantar fascia injury
MDM/Problems Addressed:
59-year-old female presenting to the emergency department for evaluation of right foot pain following an accidental trip and fall earlier this week. Patient notes previous history of surgery to the foot due to a previous infection. She is still
ambulatory without any noticeable limp. X-ray was ordered from triage and does not show any fracture. Back sprain or possible fascial injury is the most likely diagnosis. NSAIDs/Tylenol as needed for pain. Patient will follow-up with her
hand paint mixer. Stable for discharge home
*Radiology
Radiology exam reviewed: preliminary read by ED provider (No acute fracture)
*Pulse Oximetry
Patient hypoxic: no
*Critical Care Note
Total Time (30-74mins, 75-104mins- exclusive of procedures): Not Applicable
ED Attending Note
-
Portions of this chart may have been created with voice recognition software.� Occasional wrong word or��sound alike� substitutions may have occurred due to the inherent limitations of voice recognition software.
Discharge Plan
Departure
Patient Disposition: Home (Routine Discharge)
Date of Disposition: 09/20/24
Time of Disposition: 15:13
Patient with high blood pressure during this ER visit?: Yes
Discharge Problem:
Right foot sprain
Instructions: Sprain (DC)
Prescriptions:
No Action
ascorbic acid (vitamin C) [Vitamin C] 500 mg Tablet
500 mg PO DAILY
zolpidem [Ambien] 5 mg Tablet
5 mg PO HS PRN (Reason: insomnia)
Patient Comments:
10/23/2023: last filled 10/14/23, 30 tabs for 30 days from [id number]
fexofenadine-pseudoephedrine [Elizabeth-D 24 Hour] 180-240 mg Tablet Extended Release 24 Hr
0.5 tab PO DAILY
Vitamin B12 Chew
1 tab PO DAILY
ondansetron HCl 4 mg tablet
4 mg PO Q6H PRN (Reason: nausea/vomiting)
omeprazole 20 mg capsule,delayed release(DR/EC)
20 mg PO DAILY
carvedilol 3.125 mg Tablet
6.25 mg PO BID Qty: 60 0RF
hydrocortisone 1 % Cream
1 applic topical TIDPRN PRN (Reason: itching/rash) Qty: 28.4 0RF
Saccharomyces boulardii 250 mg Capsule
250 mg PO BID Qty: 60 0RF
lidocaine 4 % Adhesive Patch,Medicated
1 patch topical DAILY Qty: 30 0RF
amiodarone [Pacerone] 200 mg Tablet
200 mg PO BID Qty: 60 0RF
benzonatate 100 mg Capsule
200 mg PO TIDPRN PRN (Reason: cough) Qty: 14 0RF
aspirin [Children's Aspirin] 81 mg Tablet,Chewable
81 mg PO DAILY Qty: 30 0RF
gabapentin 100 mg Capsule
100 mg PO HS Qty: 30 0RF
vancomycin 125 mg capsule
125 mg PO QID 7 Days Qty: 28 0RF
bumetanide 0.5 mg Tablet
0.5 mg PO MoWeFr@0800 30 Days Qty: 13 0RF
Referrals:
Josselyn Bailey MD [Family Provider] -
Interventions
Interventions:
*Risk Screen - Suicide Last Done: 09/20/24 13:12
*General Assessment Last Done: 09/20/24 13:12
*Neglect/Abuse Screening Last Done: 09/20/24 13:12
*Nursing Disposition Last Done: 09/20/24 15:40
ED-Musculoskeletal Assessment Last Done: 09/20/24 15:37
Discharge Date and Time
Discharge Date/Time: 09/20/24 15:40
Print Language: ITALIAN
[2024-09-20 15:37] VITALS: BP 158/89
== END 2024-09-20 15:40 | disposition home or self-care (01) ==
LOC: EMR 13:03
PROVIDERS: EMERGENCY PHYSICIAN Emergency Medicine; FAMILY PHYSICIAN Family Medicine
DX: S93.601A Unspecified sprain of right foot, initial encounter (principal); W01.0XXA Fall on same level from slipping, tripping and stumbling without subsequent striking against object, initial encounter; Y93.01 Activity, walking, marching and hiking; M79.7 Fibromyalgia; K58.9 Irritable bowel syndrome, unspecified
CPT/HCPCS: 99283; 73630

== ENCOUNTER 2025-02-05 21:30 | Emergency (ER) | payer BC, SELFPAY ==
[2025-02-05 21:33] VITALS: BP 157/87
[2025-02-05 22:46] VITALS: BP 157/96
[2025-02-05 22:50] VITALS: BP 163/96
[2025-02-05 22:51] VITALS: BMI 23.6
[2025-02-05 23:00] VITALS: BP 163/93
[2025-02-05 23:13] LABS: % Basophils 0.4 % (0-2); % Eosinophils 2.7 % (0-6); % Immature Granulocytes 0.2 % (0-0.5); % Lymphocytes 42.7 % (20.5-51.1); % Monocytes 8.8 % (1.7-9.3); % Neutrophils 45.2 % (42.2-75.2); Absolute Eosinophils 0.1 10^3/uL (0-0.7); Absolute Lymphocytes 2.2 10^3/uL (1.2-3.4); Absolute Monocytes 0.5 10^3/uL (0.1-0.6); Absolute Neutrophils 2.4 10^3/uL (1.4-6.5); Hematocrit 27.7 % (37.0-47.0); Hemoglobin 9.9 g/dL (12.0-16.0); Mean Corp Hgb Conc. 35.7 g/dL (33.0-37.0); Mean Corpuscular Hgb 33.2 pg (27.0-31.0); Mean Platelet Volume 8.4 fL (7.4-10.4); Nucleated Red Blood Cells % 0 %; Platelet Count 221 10^3/uL (130-400); Red Blood Cell Count 2.98 10^6/uL (4.20-5.40); Red Cell Dist. Width 11.9 % (11.5-14.5); White Blood Cell Count 5.2 10^3/uL (4.8-10.8)
[2025-02-05 23:32] LABS: ALT (SGPT) 14 U/L (0-35); AST (SGOT) 21 U/L (14-36); Albumin 4.3 g/dl (3.5-5.0); Alkaline Phosphatase 55 U/L (38-126); Blood Urea Nitrogen 12 mg/dl (7-17); Calcium 9.1 mg/dl (8.4-10.2); Carbon Dioxide 28 mmol/L (22-30); Chloride 98 mmol/L (98-107); Estimated Creatinine Clearance 76 ml/min; Glucose 96 mg/dl (70-99); Potassium 3.7 mmol/L (3.5-5.1); Sodium 133 mmol/L (135-145); Total Bilirubin 0.5 mg/dl (0.2-1.3); Total Protein 6.2 g/dl (6.3-8.2); eGFR > 60.00
[2025-02-05 23:44] LABS: Troponin I < 0.012 ng/ml
--- NOTE | 2025-02-05 23:53 | ED.GENMED ---
History of Present Illness
General
Chief Complaint: Blood Pressure Problem
Source: patient
Exam Limitations: none
Time Seen by Provider: 02/05/25 23:04
Nursing documentation reviewed up to this point in time: agreed with
History of Present Illness
History of Present Illness:
59-year-old female past medical history of IBS, asthma presenting to the emergency department today with concerns of elevated blood pressure. She was seen in urgent care for right sided knee pain was diagnosed as a knee sprain but had blood
pressure in the 170s over 90s which prompted her to come to the ER. Denies any chest pain numbness weakness headache neck pain back pain abdominal pain or shortness of breath. She has had elevated blood pressures in the past. Was previously on
carvedilol but does not like the side effects of it.
Past History
Past History
ED Past Medical History: Other (Fibromyalgia, IBS foot infection)
ED Past Surgical History: Gynecological, Tonsilectomy and Other (breast reduction)
Social History
Tobacco: Non-smoker
Alcohol: None
Drug: None
Personal:
Living: with family
Employment: Employed
Family History
Family History: Other
Review of Systems
Review of Systems
Allergies reviewed?: Yes
All Other Systems: ROS reviewed and negative except as documented in HPI and ROS
Phy Exam
Physical Exam
Physical Exam:
GENERAL: Alert , in no apparent distress
EYE: pupils equal and reactive
NECK: Supple, no significant adenopathy.
ENT: o/p clr, mmm.
CARDIAC: Regular rate and rhythm .
LUNGS: Clear breath sounds bilaterally, no acute respiratory distress, no wheezes/rales/rhonchi
ABDOMEN: Soft, without focal tenderness, no r/g, no cvat
NEUROLOGICAL: Alert and oriented, no focal neuro deficits
SKIN: Warm and dry, skin intact.
MUSCULOSKELETAL: No edema, well perfused.
PSYCH: Normal and appropriate interaction.
Course
Orders/Labs/Results
Orders:
Orders
02/05/25 22:58
ECG [Electrocardiogram (*1)] Urgent
Reason for Study: Hypertension, Benign
02/05/25 22:59
EKG- Treatment ONCE
02/05/25 23:06
Complete Blood Count/With Diff Urgent
Comprehensive Metabolic Panel Urgent
Troponin I Urgent
02/05/25 23:50
Losartan [Cozaar] 25 mg PO NOW STA
Abnormal Lab Results
02/05/25
23:06
RBC 2.98 L 10^6/uL
(4.20-5.40)
Hgb 9.9 L g/dL
(12.0-16.0)
Hct 27.7 L %
(37.0-47.0)
MCH 33.2 H pg
(27.0-31.0)
Sodium 133 L mmol/L
(135-145)
Total Protein 6.2 L g/dl
(6.3-8.2)
02/05/25 23:06
02/05/25 23:06
Vital Signs
Initial and Last Documented VS:
Initial Vital Signs
Temp Pulse Resp BP Pulse Ox
97.6 F 72 16 157/87 99
02/05/25 21:33 02/05/25 21:33 02/05/25 21:33 02/05/25 21:33 02/05/25 21:33
Last Documented Vital Signs
Temp Pulse Resp BP Pulse Ox
97.6 F 59 16 163/93 99
02/05/25 21:33 02/05/25 22:50 02/05/25 22:50 02/05/25 23:00 02/05/25 23:30
MDM/Problems Addressed
MDM/Problems Addressed:
59-year-old female presenting to the emerged today with concerns of elevated blood pressure at the urgent care. Denies any chest pain numbness weakness any strokelike symptoms no abdominal pain no changes in urination. Blood pressure in the 150s
over 80s on arrival and then in the 160s over 90s while here. Hemoglobin is in the nines which is at patient's baseline. Other labs unremarkable EKG without emergent findings. Patient with no evidence of hypertensive emergency started on losartan
will follow-up closely as an outpatient. Return precautions given.
*Critical Care Note
Total Time (30-74mins, 75-104mins- exclusive of procedures): Not Applicable
ED Attending Note
-
Portions of this chart may have been created with voice recognition software.� Occasional wrong word or��sound alike� substitutions may have occurred due to the inherent limitations of voice recognition software.
Discharge Plan
Departure
Patient Disposition: Home (Routine Discharge)
Date of Disposition: 02/05/25
Time of Disposition: 23:53
Patient with high blood pressure during this ER visit?: Yes
Condition: Good
Covid-19: Not Applicable
Discharge Problem:
High blood pressure
Instructions: BLOOD PRESSURE
Prescriptions:
New
losartan 25 mg tablet
25 mg PO DAILY Qty: 14 0RF
No Action
ascorbic acid (vitamin C) [Vitamin C] 500 mg Tablet
500 mg PO DAILY
zolpidem [Ambien] 5 mg Tablet
5 mg PO HS PRN (Reason: insomnia)
Patient Comments:
10/23/2023: last filled 10/14/23, 30 tabs for 30 days from [facility][id number]
fexofenadine-pseudoephedrine [Elizabeth-D 24 Hour] 180-240 mg Tablet Extended Release 24 Hr
0.5 tab PO DAILY
Vitamin B12 Chew
1 tab PO DAILY
omeprazole 20 mg capsule,delayed release(DR/EC)
20 mg PO DAILY
aspirin [Children's Aspirin] 81 mg Tablet,Chewable
81 mg PO DAILY Qty: 30 0RF
gabapentin 100 mg Capsule
100 mg PO HS Qty: 30 0RF
Saccharomyces boulardii 250 mg capsule
250 mg PO DAILY
Referrals:
Josselyn Bailey MD [Family Provider] -
Activity Restrictions/Additional Instructions:
You came to the emergency department today with concerns of elevated blood pressure. Here your blood pressure was in the 160s over 90s. You had a reassuring assessment. Please take losartan 25 mg which is the lowest dose. Please take this once
daily and follow-up closely with your primary care doctor for reassessment and monitoring. Return for any worsening, new or concerning symptoms.
Interventions
Interventions:
*Risk Screen - Suicide Last Done: 02/05/25 21:33
*General Assessment Last Done: 02/05/25 21:33
*Neglect/Abuse Screening Last Done: 02/05/25 21:33
*ED- Fall Risk Assessment Last Done: 02/05/25 22:55
*ED COVID-19 Vaccine History Last Done: 02/05/25 21:33
ED- Cardiac Assessment Last Done: 02/05/25 22:55
ED- Neurological Assessment Last Done: 02/05/25 22:55
ED- Pulmonary Assessment Last Done: 02/05/25 22:55
Discharge Date and Time
Print Language: LAO
[2025-02-06] MEDS: COZAAR 25 MG PO (00:02)
== END 2025-02-06 00:05 | disposition home or self-care (01) ==
LOC: EMR 21:30
PROVIDERS: EMERGENCY PHYSICIAN Emergency Medicine; FAMILY PHYSICIAN Family Medicine
DX: I10 Essential (primary) hypertension (principal); J45.909 Unspecified asthma, uncomplicated; K58.9 Irritable bowel syndrome, unspecified; M79.7 Fibromyalgia
CPT/HCPCS: 99283; 80053; 84484; 85025; 93005

== ENCOUNTER → 2025-03-26 15:04 | Outpatient (REF) | payer BC, SELFPAY | LOC: PAVMRI 15:04 | PROVIDERS: ATTENDING PHYSICIAN Orthopaedic Surgery; FAMILY PHYSICIAN Family Medicine | DX: M47.812 Spondylosis without myelopathy or radiculopathy, cervical region (principal) | CPT/HCPCS: 72141 ==

== ENCOUNTER → 2025-04-28 14:03 | Outpatient (REF) | payer BC, SELFPAY | LOC: WDC 14:03 | PROVIDERS: ATTENDING PHYSICIAN Family Medicine | DX: Z12.31 Encounter for screening mammogram for malignant neoplasm of breast (principal) | CPT/HCPCS: 77063; 77067 ==

== ENCOUNTER → 2025-06-17 12:46 | Outpatient (REF) | payer BC, SELFPAY | LOC: RCS 12:46 | PROVIDERS: ATTENDING PHYSICIAN Internal Medicine Cardiovascular Disease; FAMILY PHYSICIAN Family Medicine | DX: I49.2 Junctional premature depolarization (principal) | CPT/HCPCS: 93306 ==

== ENCOUNTER → 2025-06-19 10:31 | Outpatient (REF) | payer BC, SELFPAY | LOC: RAD 10:31 | PROVIDERS: ATTENDING PHYSICIAN Podiatrist Foot Surgery; FAMILY PHYSICIAN Family Medicine | DX: M86.179 Other acute osteomyelitis, unspecified ankle and foot (principal) | CPT/HCPCS: 78315; A9503 ==